=== PATIENT | female | born 1940 | race Caucasian/White ===

== ENCOUNTER → 2018-06-23 13:33 | Outpatient (CLI) | payer MEDICARE, SELFPAY ==
[2018-06-23 14:02] LABS: Blood Urea Nitrogen 28 mg/dL (7-17); Calcium 9.1 mg/dL (8.4-10.2); Carbon Dioxide 26 mmol/L (22-32); Chloride 105 mmol/L (98-107); Estimated Glomerular Filt Rate 36.3 mL/min (>60); Glucose 94 mg/dL (80-110); HEMOLYSIS < 15 (0-50); Potassium 3.9 mmol/L (3.4-5.1); Sodium 140 mmol/L (137-145)
[2018-06-23 14:19] LABS: Free T3, Triiodothyronine Free 4.41 pg/mL (2.77-5.27); Free T4, Direct Thyroxine 1.41 ng/dL (0.78-2.19)
[2018-06-23 17:43] LABS: Vitamin D 25 Hydroxy (D3) 28.2 ng/mL (30.0-100.0)
== END ==
PROVIDERS: PCP Student in an Organized Health Care Education/Training Program; Visit Provider Student in an Organized Health Care Education/Training Program
DX: E03.9 Hypothyroidism, unspecified (principal); E55.9 Vitamin D deficiency, unspecified; N18.3 Chronic kidney disease, stage 3 (moderate); I12.9 Hypertensive chronic kidney disease with stage 1 through stage 4 chronic kidney disease, or unspecified chronic kidney disease
CPT/HCPCS: 36415; 80048; 82306; 84439; 84443; 84481

== ENCOUNTER 2018-09-17 22:31 | Inpatient (IN) | payer MEDICARE, SELFPAY ==
--- NOTE | 2018-09-17 | DI.CT.S_ITS ---
PROCEDURE: CT HEAD/BRAIN WO CON INDICATIONS: Multiple falls, right sided weakness TECHNIQUE: Noncontrast 4.5 mm thick angled axial sections acquired from the foramen magnum to the vertex, with coronal and sagittal reformats. For radiation dose reduction, the following was used: automated exposure control, adjustment of mA and/or kV according to patient size. COMPARISON: , CT, HEAD WITHOUT CONTRAST, 09/18/2015, 13:41. FINDINGS: Image quality: Excellent. CSF spaces: Basal cisterns are patent. No extra-axial fluid collections. The ventricles are symmetric in size and shape. There is mild cerebral volume loss, with resultant ventricular and sulcal prominence. Brain: No intracranial hemorrhage, mass, or mass effect. There are subcortical, periventricular and deep white matter hypodensities consistent with mild chronic small vessel ischemic changes. There is intracranial internal carotid artery atherosclerosis. Skull and face: Calvarium and visualized facial bones appear intact, without suspicious lesions. Sinuses: Visualized demonstrate mild mucosal thickening within the left maxillary sinus. Mastoid air cells are clear. IMPRESSION: 1. No acute intracranial abnormality. 2. Mild cerebral volume loss and chronic white matter small vessel ischemic changes. Dictated by: William Nicole M.D. on 09/18/2018 at 7:52 Approved by: William Nicole M.D. on 09/18/2018 at 7:54
[2018-09-17 22:37] VITALS: BP 94/55; PULSE 94; RESP 18; TEMP 36.6; O2SAT 95; BMI 27.9
--- NOTE | 2018-09-17 22:55 | ED.WEAKNESS ---
HPI - Weakness General Chief complaint: Weakness Stated complaint: GLF, weakness Time Seen by Provider: 09/17/18 22:32 Source: patient and EMS Mode of arrival: EMS Limitations: no limitations History of Present Illness HPI Narrative: Patient is a 77-year-old female with history of Parkinson's disease. She does live on her own. She states that she has fallen multiple times over the past several days/week. She states that the falls are related to her Parkinson's disease. She states she has hit her head in the past but has never lost any consciousness. She states that earlier today she fell while she was in her bedroom and she landed on the bed. She states that her right arm was under her. She states that because of how she fell it was difficult for her to move secondary to her Parkinson's disease and also weakness. her caretaker grounds did come over and found her lying on the bed. Appears that she had been lying there for approximately 14 hours. Upon arrival here in the emergency department. Patient was complaining of right upper arm pain to palpation however she was able to move her arm. She denies any other injuries. Related Data Home Medications Medication Instructions Recorded Confirmed carbidopa ER 50 mg-levodopa 200 mg 1 tab PO BEDTIME tab 06/26/18 09/18/18 tablet,extended release trospium 20 mg tablet 20 mg PO BID 06/26/18 09/18/18 fluoxetine 60 mg PO DAILY 09/18/18 09/18/18 rivastigmine tartrate 1 tab PO BID 09/18/18 09/18/18 Previous Rx's Medication Instructions Recorded melatonin 10 mg capsule 10 mg PO BEDTIME PRN #30 cap 06/26/18 carbidopa 25 mg-levodopa 100 mg 2 tab PO TID #180 tab 07/29/18 tablet Allergies Allergy/AdvReac Type Severity Reaction Status Date / Time Sulfa (Sulfonamide Allergy Severe HIVES Verified 09/17/18 22:46 Antibiotics) [SULFA (SULFONAMIDE ANTIBIOTICS)] vancomycin [VANCOMYCIN] Allergy Severe RASH AND Verified 09/17/18 22:46 BLISTERS codeine [CODEINE] Allergy Mild HEADACHE,VOMITING,MOOD Verified 09/17/18 22:46 CHANGES hydrocodone [HYDROCODONE] Allergy Mild NAUSEA,ITCHING,MOOD Verified 09/17/18 22:46 CHANGES Review of Systems Constitutional Reports frequent falls, Denies headache(s) and Reports weakness ENT Ears, Nose, Mouth, and Throat: Denies vertigo, Denies dizziness and Denies headache(s) Cardiovascular Denies chest pain, Denies rapid heart rate, Denies edema, Denies palpitations and Denies dyspnea Respiratory Denies dyspnea Gastrointestinal Gastrointestinal: Denies abdominal pain, Denies change in stool character, Denies nausea and Denies vomiting Genitourinary Denies dysuria and Denies vaginal discharge Musculoskeletal Denies arthralgias, Denies joint swelling and Denies numbness Comments: Right upper arm pain with palpation Integumentary/Breasts Denies rash Comments: Skin abrasions to the right elbow from prior falls Neurologic Denies behavioral changes, Denies vertigo, Denies dizziness, Reports frequent falls, Denies headache(s), Denies numbness and Reports weakness Psychiatric Denies behavioral changes Endocrine Denies palpitations Hematologic/Lymphatic Denies easy bleeding and Denies easy bruising Allergic/Immunologic Denies urticaria [facility] Medical History Arthritis (Chronic) Hypertension (Chronic) Lumbar spinal stenosis (Chronic) Parkinson's disease (Chronic) Peripheral neuropathy (Chronic) Urinary incontinence (Chronic) Fall from ground level (Resolved 04/2014) Hemopneumothorax (Resolved 04/2014) Menopause (Resolved ~1983) Respiratory failure (Resolved 04/2014) Rib fractures (Resolved 04/2014) Social History household members: none Smoking Status: Former smoker alcohol intake: current substance use type: does not use Exam Initial Vital Signs Initial Vital Signs: Vital Signs Temperature 97.8 F 09/17/18 22:37 Pulse Rate 94 H 09/17/18 22:37 Respiratory Rate 18 09/17/18 22:37 Blood Pressure 94/55 L 09/17/18 22:37 Pulse Oximetry 95 09/17/18 22:37 Const General: cooperative, well developed, well groomed and No acute distress Orientation: alert, awake and oriented x3 HENMT Head: normal to inspection and normocephalic Ears: hearing grossly normal bilaterally Nose: external nose normal Face and sinus: normal facial exam Chest Chest: normal inspection of the chest Resp Effort & Inspection: normal respiratory effort Auscultation: clear to auscultation bilaterally Cardio Rate: regular rate Rhythm: regular rhythm Pulses: radial pulses present GI Inspection: non-distended Palpation: soft, No firm and No tender Back/Spine/Pelvis Cervical Spine: No cervical spinal tenderness Skin Other: Bandages covering skin abrasions to her right elbow Neuro General: alert, awake and oriented x3 Cranial Nerves: CN's II-XI intact bilaterally Cognition: normal cognition Speech: speech normal Other: Patient with a baseline tremor that she states is not new. Patient with 2/5 strength bilateral lower extremity however equal bilateral. Patient states this is not new. 4-5 strength bilateral upper extremity equal bilateral. Patient states that this is not new. Extrem General: normal to inspection and capillary refill normal Other: Patient with full range of motion of the right shoulder right elbow and right wrist and right hand. She does have tenderness to palpation around the right biceps and triceps muscle. Psych Appearance: grossly normal and well kempt Scores GCS Alexia coma scale eye opening: Spontaneous Alexia coma scale verbal response: Orientated Alexia coma scale motor response: Obey commands [place] coma scale total score: 15 Course Orders Ordered: ED Orders 09/17/18 22:25 Complete Blood Count AUTO DIFF Stat Comprehensive Metabolic Panel Stat Creatine Kinase Stat Lipase Stat Partial Thromboplastin Time Stat Prothrombin Time INR Stat Troponin I Stat 09/17/18 22:58 EKG-12 Lead Stat 09/18/18 00:50 Consult to Occ Therapist Stat 09/18/18 00:55 Consult to Physician Routine 09/18/18 02:20 Urinalysis and Microscopic Stat Urine Culture Stat 09/18/18 06:00 Basic Metabolic Panel Stat Complete Blood Count AUTO DIFF Stat Creatine Kinase Stat Troponin I Stat Sodium Chloride (Normal Saline 0.9%) 1,000 mls @ 150 mls/hr IV CONT SUJIT Last Admin: 09/18/18 02:33 Dose: 150 mls/hr Ondansetron HCl (Zofran) 4 mg IV Q4HR PRN PRN Reason: Nausea And Vomiting Discontinued Medications Aspirin (Aspirin Chew) 324 mg PO NOW ONE Stop: 09/18/18 00:51 Last Admin: 09/18/18 01:02 Dose: 324 mg Vital Signs - 8 hr 09/17/18 22:37 09/17/18 23:00 09/18/18 00:00 Temperature 97.8 F Pulse Rate 94 H 98 H 85 Respiratory Rate 18 26 H 20 Blood Pressure 94/55 L Blood Pressure [Left Arm] 106/59 L 124/54 L Pulse Oximetry 95 98 93 09/18/18 00:43 09/18/18 01:32 09/18/18 01:55 Temperature 98.2 F Pulse Rate 94 H 90 91 H Respiratory Rate 24 14 16 Blood Pressure 115/67 129/76 Blood Pressure [Left Arm] 108/55 L Pulse Oximetry 95 94 94 MDM - Weakness Lab Data Attestation: I reviewed the patient's lab results. Result diagrams: 09/17/18 22:25 09/17/18 22:25 Lab Results 09/17/18 09/17/18 09/17/18 Range/Units 22:25 22:25 22:25 WBC 12.1 H (4.5-11.0) X10^3/uL RBC 5.77 H (4.0-5.2) X10^6/uL Hgb 16.6 H (12.0-16.0) g/dL Hct 49.0 H (36-46) % MCV 84.9 (80-100) fL MCH 28.8 (26-34) PG MCHC 33.9 (30-36) % RDW 14.8 (11.6-14.8) % Plt Count 170 (150-400) X10^3/uL Neut % (Auto) 81.7 H (50-75) % Lymph % (Auto) 8.3 L (25-40) % Weber % (Auto) 9.5 (3-14) % Eos % (Auto) 0.1 L (2-4) % Baso % (Auto) 0.4 (0-2) % Neut # (Auto) 9900 H (8972-9913) /uL Lymph # (Auto) 1000 L (0766-6880) /uL Weber # (Auto) 1200 H (0-900) /uL Eos # (Auto) 0 (0-450) /uL Baso # (Auto) 0 (0-100) /uL PT 11.6 (10.1-12.7) SECONDS INR 1.0 (0.9-1.3) APTT 31 (26.4-36.2) SECONDS Sodium 139 (137-145) mmol/L Potassium 3.7 (3.4-5.1) mmol/L Chloride 101 (98-107) mmol/L Carbon Dioxide 23 (22-32) mmol/L BUN 41 H (7-17) mg/dL Creatinine 2.10 H (0.52-1.04) mg/dL Estimated GFR 22.7 L (>60) mL/min BUN/Creatinine Ratio 19.5 (6-22) Glucose 131 H (80-110) mg/dL Calcium 9.3 (8.4-10.2) mg/dL Total Bilirubin 1.4 H (0.2-1.3) mg/dL AST 78 H (14-36) IU/L ALT 7 L (9-52) IU/L Alkaline Phosphatase 80 (38-126) U/L Total Creatine Kinase (30-135) U/L Troponin I 0.064 H (0.01-0.034) ng/mL Total Protein 7.3 (6.3-8.2) g/dL Albumin 4.3 (3.5-5.0) g/dL Globulin 3.0 (1.7-4.1) g/dL Albumin/Globulin Ratio 1.4 (1.0-2.8) Lipase 75 (23-300) U/L Urine Color Urine Appearance Urine pH (4.5-8.0) Ur Specific [place] (1.000-1.035) Urine Protein (Negative) Urine Glucose (UA) (Negative) g/dL Urine Ketones (NEGATIVE) Urine Occult Blood (Negative) Urine Nitrate (Negative) Urine Bilirubin (NEGATIVE) Urine Urobilinogen (0.2) E.U./dL Ur Leukocyte Esterase (NEGATIVE) Urine RBC (0-5/HPF) Urine WBC (0-5/HPF) Urine Bacteria (None) Granular Casts (None) WBC Casts (None) Ur Culture Indicated? 09/17/18 09/18/18 Range/Units 22:25 02:20 WBC (4.5-11.0) X10^3/uL RBC (4.0-5.2) X10^6/uL Hgb (12.0-16.0) g/dL Hct (36-46) % MCV (80-100) fL MCH (26-34) PG MCHC (30-36) % RDW (11.6-14.8) % Plt Count (150-400) X10^3/uL Neut % (Auto) (50-75) % Lymph % (Auto) (25-40) % Weber % (Auto) (3-14) % Eos % (Auto) (2-4) % Baso % (Auto) (0-2) % Neut # (Auto) (9591-3752) /uL Lymph # (Auto) (8423-1921) /uL Weber # (Auto) (0-900) /uL Eos # (Auto) (0-450) /uL Baso # (Auto) (0-100) /uL PT (10.1-12.7) SECONDS INR (0.9-1.3) APTT (26.4-36.2) SECONDS Sodium (137-145) mmol/L Potassium (3.4-5.1) mmol/L Chloride (98-107) mmol/L Carbon Dioxide (22-32) mmol/L BUN (7-17) mg/dL Creatinine (0.52-1.04) mg/dL Estimated GFR (>60) mL/min BUN/Creatinine Ratio (6-22) Glucose (80-110) mg/dL Calcium (8.4-10.2) mg/dL Total Bilirubin (0.2-1.3) mg/dL AST (14-36) IU/L ALT (9-52) IU/L Alkaline Phosphatase (38-126) U/L Total Creatine Kinase 2544 H (30-135) U/L Troponin I (0.01-0.034) ng/mL Total Protein (6.3-8.2) g/dL Albumin (3.5-5.0) g/dL Globulin (1.7-4.1) g/dL Albumin/Globulin Ratio (1.0-2.8) Lipase (23-300) U/L Urine Color Yellow Urine Appearance Clear Urine pH 5.0 (4.5-8.0) Ur Specific [place] >=1.030 H (1.000-1.035) Urine Protein 3+ H (Negative) Urine Glucose (UA) Negative (Negative) g/dL Urine Ketones Trace H (NEGATIVE) Urine Occult Blood 2+ H (Negative) Urine Nitrate Negative (Negative) Urine Bilirubin Negative (NEGATIVE) Urine Urobilinogen 0.2 (0.2) E.U./dL Ur Leukocyte Esterase 1+ H (NEGATIVE) Urine RBC 1-5/hpf (0-5/HPF) Urine WBC 5-10/hpf H (0-5/HPF) Urine Bacteria Many (>30) H (None) Granular Casts 1-5/lpf (None) WBC Casts 0-1/lpf (None) Ur Culture Indicated? Specimen cultured Imaging Data CT scan - head: Radiologist's impression: No acute intracranial disease ECG Data Attestation: I personally reviewed and interpreted this ECG as follows: Prior ECG tracings: not available for review Interpretation: Sinus rhythm Left axis deviation Ventricular rate of 93 Normal QRS Normal QTC No ST T wave changes MDM Narrative Medical decision making narrative: Patient appears to be at baseline per her report for her Parkinson's disease. She is currently taking medications for this. The fall today appears to be a mechanical fall. It appears that she was laying on the bed for an extended period of time potentially laying on her right arm. She has full range of motion of her shoulder and elbow. I feel that a fracture is unlikely so I did not obtain a x-ray. She does have a slightly elevated CK. Also has other signs of dehydration to include elevated hemoglobin and hematocrit also a elevation in her creatinine. I suspect this is also related to her legs extended period of time at home. She was given fluids here in the emergency department. Her head CT shows no signs of new pathology. I have low suspicion for CVA. She also has a slight elevation in her troponin. She is not complaining of any chest pain. she has no EKG changes consistent with a ST elevation CO. She was given aspirin here in the ER. I have a suspicion that the elevation in troponin is secondary to her acute kidney injury. patient was concerned that she potentially had a urinary tract infection. The urinalysis was ordered prior to her being transferred to the floor however the results were not obtained prior to her reaching the floor. Will hold on any antibiotics until these results are returned and followed up by the inpatient team. I discussed the case with Dr. Roe with the hospitalist team who will admit to follow the creatinine and the troponin and fluid hydration. A social work consult was also placed because the patient lives by herself. The patient's daughter and son-in-law at bedside report that they have attempted multiple times to convince the patient to be placed in a assisted living facility however she has refused. Is reported that the EMS a call to her house multiple times a week for lift assist because she is falling at home. Morning labs were ordered per the request of the inpatient team and be followed up by them. We discussed admission with the patient and family who expressed understanding and agreement. Discharge Plan Departure Patient Disposition: Admitted as Observation Clinical Impression: Parkinson's disease, Dehydration, Acute kidney injury Rhabdomyolysis Qualifiers: Rhabdomyolysis type: non-traumatic Qualified Code(s): M62.82 - Rhabdomyolysis Discharge Date/Time: 09/18/18 02:03 Interventions: ED Discharge Assessment Last Done: 09/18/18 01:32 Admit Date/Time: 09/18/18 01:07 Admit Provider: Junior Roe
[2018-09-17 23:00] VITALS: BP 106/59; PULSE 98; RESP 26; O2SAT 98
[2018-09-17 23:12] LABS: Prothrombin Time 11.6 SECONDS (10.1-12.7)
[2018-09-17 23:15] LABS: Albumin 4.3 g/dL (3.5-5.0); Albumin Globulin Ratio 1.4 (1.0-2.8); Alkaline Phosphatase 80 U/L (38-126); Aspartate Aminotransferase 78 IU/L (14-36); BUN Creatinine Ratio 19.5 (6-22); Bilirubin Total 1.4 mg/dL (0.2-1.3); Blood Urea Nitrogen 41 mg/dL (7-17); Calcium 9.3 mg/dL (8.4-10.2); Carbon Dioxide 23 mmol/L (22-32); Chloride 101 mmol/L (98-107); Estimated Glomerular Filt Rate 22.7 mL/min (>60); Glucose 131 mg/dL (80-110); HEMOLYSIS < 15 (0-50); Lipase 75 U/L (23-300); PTT Partial Thromboplastin Tim 31 SECONDS (26.4-36.2); Potassium 3.7 mmol/L (3.4-5.1); Sodium 139 mmol/L (137-145); Total Protein 7.3 g/dL (6.3-8.2)
[2018-09-17 23:17] LABS: Add Manual Diff / Slide Review NO; Basophils Absolute Auto 0 /uL (0-100); Basophils Percent Auto 0.4 % (0-2); Eosinophils Absolute Auto 0 /uL (0-450); Eosinophils Percent Auto 0.1 % (2-4); Hemoglobin 16.6 g/dL (12.0-16.0); Lymphocytes Absolute Auto 1000 /uL (1100-4500); Lymphocytes Percent Auto 8.3 % (25-40); Mean Corpuscular HGB Conc 33.9 % (30-36); Mean Corpuscular Hemoglobin 28.8 PG (26-34); Mean Corpuscular Volume 84.9 fL (80-100); Monocytes Absolute Auto 1200 /uL (0-900); Monocytes Percent Auto 9.5 % (3-14); Neutrophils Absolute Auto 9900 /uL (1500-7000); Neutrophils Percent Auto 81.7 % (50-75); Platelet Count 170 X10^3/uL (150-400); Red Blood Cell Count 5.77 X10^6/uL (4.0-5.2); Red Cell Distribution Width 14.8 % (11.6-14.8); White Blood Cell Count 12.1 X10^3/uL (4.5-11.0)
[2018-09-17 23:26] LABS: Troponin I 0.064 ng/mL (0.01-0.034)
[2018-09-17 23:36] LABS: Alanine Aminotransferase 7 IU/L (9-52)
[2018-09-17 23:43] LABS: Creatine Kinase 2544 U/L (30-135)
[2018-09-18] VITALS (11 sets, daily range): BP systolic 108–138; BP diastolic 54–76; PULSE 78–94; RESP 14–24; TEMP 36.2–36.9; O2SAT 93–97; BMI 27.9
[2018-09-18] MEDS: ASPIRIN 81 MG TAB 324 MG PO (01:02)
[2018-09-18 02:24] LABS: Appearance Urine UA CLEAR; Bilirubin Urine UA NEGATIVE (NEGATIVE); Color Urine UA YELLOW; Glucose Urine UA NEGATIVE (Negative); Ketones Urine UA TRACE (NEGATIVE); Leukocyte Esterase Urine UA 1+ (NEGATIVE); Nitrite Urine UA NEGATIVE (Negative); Occult Blood Urine UA 2+ (Negative); Protein Urine UA 3+ (Negative); Specific Gravity Urine UA >=1.030 (1.000-1.035); Urobilinogen Urine UA 0.2 E.U./dL (0.2)
[2018-09-18] MEDS: SODIUM CHLORIDE 0.9% 1,000 ML 150 ML IV (02:33)
[2018-09-18 02:44] LABS: Bacteria Urine Many (>30); RBC Urine 1-5/HPF (0-5/HPF); WBC Urine 5-10/HPF (0-5/HPF)
[2018-09-18 02:45] LABS: Culture Indicated Urine Specimen Cultured; Granular Casts Urine 1-5/LPF; White Blood Cell Casts Urine 0-1/LPF
--- NOTE | 2018-09-18 03:21 | PC.NURSE ---
0230- Pt arrived to unit from ED; admit for weakness. Hx of parkinson's w/ limited movement at this time. Heavy 2PA to BSC and back to bed using FWW for assistance. RA; VSS; NS started as ordered. Pt is alert, however gets slightly confused about objects in the room. Denies any pain at this time. 0600- IV fluids continue to run, pt denies any pain or needs.
[2018-09-18 06:17] LABS: Hematocrit 43.4 % (36-46); Hemoglobin 14.5 g/dL (12.0-16.0); Mean Corpuscular HGB Conc 33.5 % (30-36); Mean Corpuscular Hemoglobin 28.7 PG (26-34); Mean Corpuscular Volume 85.7 fL (80-100); Red Blood Cell Count 5.07 X10^6/uL (4.0-5.2); Red Cell Distribution Width 14.6 % (11.6-14.8); White Blood Cell Count 8.4 X10^3/uL (4.5-11.0)
[2018-09-18 06:32] LABS: BUN Creatinine Ratio 23.7 (6-22); Blood Urea Nitrogen 45 mg/dL (7-17); Calcium 8.4 mg/dL (8.4-10.2); Carbon Dioxide 24 mmol/L (22-32); Chloride 106 mmol/L (98-107); Creatine Kinase 1432 U/L (30-135); Estimated Glomerular Filt Rate 25.5 mL/min (>60); Glucose 93 mg/dL (80-110); HEMOLYSIS < 15 (0-50); Potassium 3.4 mmol/L (3.4-5.1); Sodium 137 mmol/L (137-145)
[2018-09-18 06:35] LABS: Add Manual Diff / Slide Review YES
[2018-09-18 06:44] LABS: Troponin I 0.071 ng/mL (0.01-0.034)
[2018-09-18 07:18] LABS: Neutrophils Absolute Manual 6468 /uL (3000-5900); Total Cells Counted 100
[2018-09-18 07:20] LABS: RBC Morphology Normal Morphology
[2018-09-18 07:27] LABS: Platelet Count 98 X10^3/uL (150-400)
--- NOTE | 2018-09-18 07:39 | P.HP_ITS ---
History of Present Illness Date Patient Seen: 09/18/18 Chief complaint: GLF, weakness Narrative: Viviane Robin is a 77-year-old female with a past medical history significant for Parkinson's disease with dementia, depression, recurrent falls, lumbar spinal stenosis and peripheral neuropathy who presented after ground level fall with right elbow pain and weakness. The patient reports it is she has fallen twice in the last 2 days. Two days ago she fell after she tripped on her feet. She then climbed into bed and was unable to get up due to positioning. She laid there for approximately 14 hours until her caregiver arrived and found her. She then fell again last night when she bent over to fruit or nut picker a piece of paper. She believe she fell last night due to weakness. She endorses increased urinary frequency, chronic constipation and right arm soreness. She denies headache, chest pain, shortness of breath, abdominal pain, nausea, vomiting, fever, chills, dysuria, or diarrhea. She reports a good appetite, however, she has had poor fluid intake. Due to her Parkinson's disease, lumbar spinal stenosis and peripheral neuropathy patient has recurrent falls and is quite unsafe at home. There are several calls made to EMS weekly due to lift assist. The patient's family has tried to place her in an assisted-living in the past but the patient has reportedly been reluctant. When I inquired as to why she does not have more help at home she reports she is unable to afford it. She currently has a assistive technology specialist that comes 5 times per week from 11:00 a.m. to 2:00 p.m. and a caregiver who comes M/W/F/Sat/Sun from 7:00 p.m. to 11:00 p.m.. She has been seen most recently by Dr. Veronique Garcia. Patient History Medical History (Updated 09/18/18 @ 11:44 by Connie Garcia DO) Dementia with Parkinsonism (Acute) Arthritis (Chronic) Hypertension (Chronic) Lumbar spinal stenosis (Chronic) Parkinson's disease (Chronic) Peripheral neuropathy (Chronic) Urinary incontinence (Chronic) Fall from ground level (Resolved 04/2014) Hemopneumothorax (Resolved 04/2014) Menopause (Resolved ~1983) Respiratory failure (Resolved 04/2014) Rib fractures (Resolved 04/2014) Surgical History History of bladder surgery (Resolved) History of hip replacement (Resolved 2000) History of left cataract surgery (Resolved 12/11/15) History of oophorectomy (Resolved) History of right cataract surgery (Resolved 12/25/15) History of tonsillectomy (Resolved) History of tracheostomy (Resolved 04/2014) Status post appendectomy (Resolved) Status post cholecystectomy (Resolved 2000) Status post hysterectomy (Resolved 1967) Status post laminectomy (Resolved 2010) Family History (Updated 09/18/18 @ 11:23 by Connie Garcia DO) Mother Breast cancer, female Colorectal cancer Cancer Father Esophageal cancer Alcoholism Parkinson disease Social History household members: none Smoking Status: Former smoker alcohol intake: current substance use type: does not use Family & Social History Social History: household members none Prior Living Arrangements House Safety & Behavioral: Feels Safe in Current Yes Environment Been Physically Hurt or No Threatened By a Person Suicidal Ideation Description None Suicide Plan Description No Plan Tobacco & Substance use: Smoking Status Former smoker, 1ppd x 15 years alcohol intake none alcohol intake frequency none Substance Use Type does not use Meds Home Medications Medication Instructions Recorded Confirmed Type carbidopa ER 50 mg-levodopa 200 mg 1 tab PO BEDTIME tab 06/26/18 09/18/18 History tablet,extended release melatonin 10 mg capsule 10 mg PO BEDTIME PRN #30 cap 06/26/18 09/18/18 Rx trospium 20 mg tablet 20 mg PO BID 06/26/18 09/18/18 History carbidopa 25 mg-levodopa 100 mg 2 tab PO TID #180 tab 07/29/18 09/18/18 Rx tablet fluoxetine 60 mg PO DAILY 09/18/18 09/18/18 History rivastigmine tartrate 1 tab PO BID 09/18/18 09/18/18 History Allergies Allergy/AdvReac Type Severity Reaction Status Date / Time Sulfa (Sulfonamide Allergy Severe HIVES Verified 09/17/18 22:46 Antibiotics) [SULFA (SULFONAMIDE ANTIBIOTICS)] vancomycin [VANCOMYCIN] Allergy Severe RASH AND Verified 09/17/18 22:46 BLISTERS codeine [CODEINE] Allergy Mild HEADACHE,VOMITING,MOOD Verified 09/17/18 22:46 CHANGES hydrocodone [HYDROCODONE] Allergy Mild NAUSEA,ITCHING,MOOD Verified 09/17/18 22:46 CHANGES Review of Systems Review of Systems A 10 system comprehensive review of systems was conducted with the patient and found to be negative except as above in the History of Present Illness. Exam Vital Signs (past 8 hours): - 09/18/18 00:00 09/18/18 00:43 09/18/18 01:32 Temperature Pulse Rate 85 94 H 90 Respiratory Rate 20 24 14 Blood Pressure 115/67 Blood Pressure [Left Arm] 124/54 L 108/55 L Pulse Oximetry 93 95 94 09/18/18 01:55 09/18/18 05:55 Temperature 98.2 F 98.2 F Pulse Rate 91 H 78 Respiratory Rate 16 16 Blood Pressure 129/76 132/76 Blood Pressure [Left Arm] Pulse Oximetry 94 96 Oxygen Delivery Method Room Air Narrative Exam Narrative: General: Elderly female lying in bed and in no acute distress, well-developed, well-nourished, possible mild/subtle confusion appropriately interactive. HEENT: Normocephalic, atraumatic. External ears without defect. Pupils equal, round, and reactive to light. Anicteric sclerae, moist conjunctivae, and no lid lag. Oropharynx free of erythema and cobble stoning with moist mucosa. Neck: Supple with full range of motion. No jugular venous distension. No bruits. No lymphadenopathy or thyromegaly. Cardiovascular: Regular rate and rhythm with grade +2/6 holosystolic murmur. No rubs or gallops appreciated. Pulmonary: Clear to auscultation bilaterally without crackles, wheezes, or rhonchi. Normal respiratory effort with no use of accessory muscles. Abdomen: Soft, bowel sounds present, non-tender, non-distended. No hepatosplenomegaly or masses appreciated. Extremities: No clubbing, cyanosis, or edema. Skin: Normal temperature, turgor, and texture; no rash, ulcers, or subcutaneous nodules appreciated. Neurological: Cranial nerves grossly intact. Very mild parkinsonian tremor and masked facies. Mild bilateral upper extremity rigidity. Psychiatric: Normal mood and affect. Alert and oriented to person, place, and time. Objective Labs Result Diagrams: 09/18/18 06:00 09/18/18 06:00 Labs: Laboratory Results - last 24 hr 09/17/18 09/17/18 09/17/18 22:25 22:25 22:25 WBC 12.1 H RBC 5.77 H Hgb 16.6 H Hct 49.0 H MCV 84.9 MCH 28.8 MCHC 33.9 RDW 14.8 Plt Count 170 Neut % (Auto) 81.7 H Lymph % (Auto) 8.3 L Amite % (Auto) 9.5 Eos % (Auto) 0.1 L Baso % (Auto) 0.4 Neut # (Auto) 9900 H Lymph # (Auto) 1000 L Amite # (Auto) 1200 H Eos # (Auto) 0 Baso # (Auto) 0 Total Counted Seg Neutrophils % Band Neutrophils % Lymphocytes % (Manual) Atypical Lymphs % Monocytes % (Manual) Neutrophils # (Manual) RBC Morphology PT 11.6 INR 1.0 APTT 31 Sodium 139 Potassium 3.7 Chloride 101 Carbon Dioxide 23 BUN 41 H Creatinine 2.10 H Estimated GFR 22.7 L BUN/Creatinine Ratio 19.5 Glucose 131 H Calcium 9.3 Total Bilirubin 1.4 H AST 78 H ALT 7 L Alkaline Phosphatase 80 Total Creatine Kinase Troponin I 0.064 H Total Protein 7.3 Albumin 4.3 Globulin 3.0 Albumin/Globulin Ratio 1.4 Lipase 75 Urine Color Urine Appearance Urine pH Ur Specific Fiatt Urine Protein Urine Glucose (UA) Urine Ketones Urine Occult Blood Urine Nitrate Urine Bilirubin Urine Urobilinogen Ur Leukocyte Esterase Urine RBC Urine WBC Urine Bacteria Granular Casts WBC Casts Ur Culture Indicated? 09/17/18 09/18/18 09/18/18 22:25 02:20 06:00 WBC 8.4 RBC 5.07 Hgb 14.5 Hct 43.4 MCV 85.7 MCH 28.7 MCHC 33.5 RDW 14.6 Plt Count Neut % (Auto) Glass Installer Lymph % (Auto) Glass Installer Amite % (Auto) Glass Installer Eos % (Auto) Glass Installer Baso % (Auto) Glass Installer Neut # (Auto) Glass Installer Lymph # (Auto) Glass Installer Amite # (Auto) Glass Installer Eos # (Auto) Glass Installer Baso # (Auto) Glass Installer Total Counted 100 Seg Neutrophils % 76.0 H Band Neutrophils % 1.0 L Lymphocytes % (Manual) 4.0 L Atypical Lymphs % 13.0 H Monocytes % (Manual) 6.0 Neutrophils # (Manual) 6468 H RBC Morphology Normal morphology PT INR APTT Sodium Potassium Chloride Carbon Dioxide BUN Creatinine Estimated GFR BUN/Creatinine Ratio Glucose Calcium Total Bilirubin AST ALT Alkaline Phosphatase Total Creatine Kinase 2544 H Troponin I Total Protein Albumin Globulin Albumin/Globulin Ratio Lipase Urine Color Yellow Urine Appearance Clear Urine pH 5.0 Ur Specific Fiatt >=1.030 H Urine Protein 3+ H Urine Glucose (UA) Negative Urine Ketones Trace H Urine Occult Blood 2+ H Urine Nitrate Negative Urine Bilirubin Negative Urine Urobilinogen 0.2 Ur Leukocyte Esterase 1+ H Urine RBC 1-5/hpf Urine WBC 5-10/hpf H Urine Bacteria Many (>30) H Granular Casts 1-5/lpf WBC Casts 0-1/lpf Ur Culture Indicated? Specimen cultured 09/18/18 06:00 WBC RBC Hgb Hct MCV MCH MCHC RDW Plt Count Neut % (Auto) Lymph % (Auto) Amite % (Auto) Eos % (Auto) Baso % (Auto) Neut # (Auto) Lymph # (Auto) Amite # (Auto) Eos # (Auto) Baso # (Auto) Total Counted Seg Neutrophils % Band Neutrophils % Lymphocytes % (Manual) Atypical Lymphs % Monocytes % (Manual) Neutrophils # (Manual) RBC Morphology PT INR APTT Sodium 137 Potassium 3.4 Chloride 106 Carbon Dioxide 24 BUN 45 H Creatinine 1.90 H Estimated GFR 25.5 L BUN/Creatinine Ratio 23.7 H Glucose 93 Calcium 8.4 Total Bilirubin AST ALT Alkaline Phosphatase Total Creatine Kinase 1432 H D Troponin I 0.071 H Total Protein Albumin Globulin Albumin/Globulin Ratio Lipase Urine Color Urine Appearance Urine pH Ur Specific Fiatt Urine Protein Urine Glucose (UA) Urine Ketones Urine Occult Blood Urine Nitrate Urine Bilirubin Urine Urobilinogen Ur Leukocyte Esterase Urine RBC Urine WBC Urine Bacteria Granular Casts WBC Casts Ur Culture Indicated? Assessment & Plan Assessment & Plan narrative: Viviane Robin is a 77-year-old female with a past medical history significant for Parkinson's disease with dementia, depression, recurrent falls, lumbar spinal stenosis and peripheral neuropathy who presented after ground level fall with right elbow pain and weakness. 1. Acute rhabdomyolysis with dehydration after ground level fall, present on admission. Active. -Initial total CK 2544. Repeat total CK trending down at 1432. -Continue IV fluid hydration with normal saline decreased from 150 mL/hr to 100 mL/hr. 2. Acute urinary tract infection, present on admission. Active. -Urinalysis appears grossly infected with urine culture pending. Due to generalized weakness with ground level fall and rhabdomyolysis started empiric antibiotics with ceftriaxone 2 g daily pending identification and sensitivities. 3. Acute kidney injury, on chronic kidney disease stage 3, present on admission. Active. -Secondary to rhabdomyolysis, UTI, and dehydration. -Initial creatinine 2.10. Baseline creatinine between 1.2-1.4. Creatinine trending down to 1.9. -Continue IV fluid hydration as above. -Avoid nephrotoxic agents. -Continue to monitor renal function daily. 4. Acute thrombocytopenia, not present on admission. Stable. -Secondary to hemodilution and acute infection. -Continue to monitor platelets closely. 5. Parkinson's disease, chronic, present on admission. Stable. -Continue carbidopa levodopa IR 50/200 mg 3 times a day and carbidopa levodopa ER 50/200 mg once daily at bedtime. -Continue rivastigmine tartrate twice daily. 6. Urinary incontinence and overactive bladder, chronic, present on admission. Stable. -Continue trospium 20 mg twice daily. 7. Depression, chronic, present on admission. Stable. -Patient inquired as to how to better control her depression for which counseling -Continue fluoxetine 60 mg daily. Patient is admitted under inpatient status with expected length of stay greater than 2 midnights due to severity of presenting symptoms, risk of adverse event, and complexity of treatment plan. Quality VTE Deep Vein Thrombosis/Pulmonary Embolism Present on Admission: No
[2018-09-18] MEDS: SODIUM CHLORIDE 0.9% 1,000 ML 100 ML IV ×2 (08:57→20:39)
[2018-09-18] MEDS: HEPARIN 5,000 UNIT/ML VIAL 5000 UNIT SUBCUT (09:52)
[2018-09-18] MEDS: CEFTRIAXONE 2 GM/50 ML FROZ.PIGGY IV (09:52)
--- NOTE | 2018-09-18 10:56 | PT.IIE ---
Surgical History (Last Reviewed 09/18/18 @ 11:18 by Connie Garcia DO) History of bladder surgery (Resolved) History of hip replacement (Resolved 2000) History of left cataract surgery (Resolved 12/11/15) History of oophorectomy (Resolved) History of right cataract surgery (Resolved 12/25/15) History of tonsillectomy (Resolved) History of tracheostomy (Resolved 04/2014) Status post appendectomy (Resolved) Status post cholecystectomy (Resolved 2000) Status post hysterectomy (Resolved 1967) Status post laminectomy (Resolved 2010) Medical History (Last Updated 09/18/18 @ 11:44 by Connie Garcia DO) Dementia with Parkinsonism (Acute) Arthritis (Chronic) Hypertension (Chronic) Lumbar spinal stenosis (Chronic) Parkinson's disease (Chronic) Peripheral neuropathy (Chronic) Urinary incontinence (Chronic) Fall from ground level (Resolved 04/2014) Hemopneumothorax (Resolved 04/2014) Menopause (Resolved ~1983) Respiratory failure (Resolved 04/2014) Rib fractures (Resolved 04/2014) Physical Therapy Inpatient Evaluation/Re-Eval M1 PT/OT-IP Prior Functional Status Start: 09/18/18 13:07 Freq: NEEDED Status: Active Protocol: Document 09/18/18 10:56 AB (Rec: 09/18/18 13:23 AB [id number]) Medical Review Prior Functional Status Medical History Reviewed Yes Communication able to make needs known Mobility and Gait pt stated that she is modified independent with all mobilities and ambulation using a hurrycane indoors and 4WW for outdoor mobility Activities of Daily Living and IADL's has a caregiver that comes in to assist her for a ~ 4 hours everyday: Mornings on MTW; afternoons ThF, evenings: SatSun Prior Functional Level (Other details) pt has had h/o falls, ~ 4 falls for the passed month Social History Household Members none Living Arrangements House Number of Floors (Floors) One Floor Number of Stairs To Enter/Railing? ramp to enter Home Environment Standard Height Toilet Walk in Shower Ramp Home Equipment Four Wheel Walker Raised Toilet Seat Without Armrests Shower Seat without Backrest Hand Held Shower Grab Bars In Shower Additional Social History Comment has a transfer pole next to the bed to assist her with transfers pt has a hurrycane M2 PT-IP Current Condition Start: 09/18/18 13:07 Freq: NEEDED Status: Active Protocol: Document 09/18/18 10:56 AB (Rec: 09/18/18 13:23 AB [id number]) Physical Therapy Current Condition Current Condition Evaluation Date 09/18/18 Treatment Diagnosis Rhabdomyolysis; PD; difficulty in Walking Onset Date 09/18/18 Precautions Other Precautions Falls M3 PT-IP Subjective Start: 09/18/18 13:07 Freq: NEEDED Status: Active Protocol: Document 09/18/18 10:56 AB (Rec: 09/18/18 13:23 AB [id number]) Subjective Physical Therapy Visit Type Type Initial Evaluation Visit Start Time 10:56 Visit Stop Time 11:29 Total Visit Minutes 32 Number of BALLPOINT PEN CARTRIDGE TESTER Visits 0 Physical Therapy Visit Comments Patient Comments pt agreeable to do PT Therapy Pain Assessment Pain When Pain Assessed At Rest Pain Present Pain Present Pain Reported Location Right Arm Scale Used pain scale not stated M4 PT-IP Mobility and Gait Start: 09/18/18 13:07 Freq: NEEDED Status: Active Protocol: Document 09/18/18 10:56 AB (Rec: 09/18/18 13:23 AB [id number]) PT-Bed Mobility Assessment Supine to Sit Supine to Sit Maximum Assistance 1 Person Assistance Sit to Supine Sit to Supine Maximum Assistance 1 Person Assistance Scooting Scooting to Edge of Bed Maximum Assistance PT-Transfer Assessment Sit to and From Stand Sit to and from Stand Moderate Assistance 1 Person Assistance Use of Upper Extremities Equipment Transfer Assistive Device Gait Belt Front Wheeled Walker Orthotic/Prosthetic Devices or Brace: No Transfers Transfer Destination Bed Chair Transfer Technique Stand Step Pivot Transfer Ability Level of Assist Minimal Assistance Use of Upper Extremities Comments Mobility Comments pt tends to push trunk backwards during sit to stand. instructed on techniques on how to do sit <>stand and pt completed with mod A and max cues. Gait Assessment Gait Gait Assistance Required: Minimum Assistance Distance (Feet) 25 Able to Maintain Weight Bearing Status Yes During Gait Assistive Devices Assistive Device Gait Belt Front Wheeled Walker Orthotic/Prosthetic Devices or Brace: No Gait Deviations General Gait Pattern Decreased Stride Length Decreased Feet Clearance Festinating Factors Limiting Gait Function Factors Limiting Gait Function Decreased Activity Tolerance Decreased Strength Incoordination Limited Range of Motion Poor Balance Poor Safety Awareness PT-Balance Assessment Sitting Balance and Reactions Static Sitting Balance Ability Good Dynamic Sitting Balance Ability Fair Standing Balance and Reactions Static Standing Balance Ability Poor Dynamic Standing Balance Ability Poor Device Used FWW M5 PT-IP Objective Assessments Start: 09/18/18 13:07 Freq: NEEDED Status: Active Protocol: Document 09/18/18 10:56 AB (Rec: 09/18/18 13:23 AB [id number]) Orientation Orientation/Cognition Level of Alertness Alert Orientation Name Place Situation Language Function Ability No Deficits Noted Safety Awareness Decreased Safety Awareness Memory Description Short Term Impaired Gross Range of Motion Lower Extremity ROM Assessment Within Functional Limits Strength Lower Extremity Strength Assessment Bilaterally Impaired Hip 3+/5 Knee 3+/5 Sensation Assessment Sensation Gross Sensation WNL M6 PT-IP Treatment Start: 09/18/18 13:07 Freq: NEEDED Status: Active Protocol: Document 09/18/18 10:56 AB (Rec: 09/18/18 13:23 AB [id number]) Physical Therapy Treatment Education Education Provided Safety M7 PT-IP Assessment and Plan Start: 09/18/18 13:07 Freq: NEEDED Status: Active Protocol: Document 09/18/18 10:56 AB (Rec: 09/18/18 13:23 AB [id number]) PT Summary Assessment and Plan Potential Rehabilitation Potential Good Summary Impairments Pain ROM Strength Balance Coordination Sensation Tone Cognition Bed Mobility Transfers Gait Activity Tolerance Assessment Summary pt requiring mod to max A with mobility. pt has h/o falls at home. pt will require SNF rehab at this time to improve strength, balance, functional mobility and safety awareness. Goals Bed Mobility Goal Standby Assistance Transfer Goal Standby Assistance Front Wheeled Walker Gait Goal Standby Assistance Front Wheel Walker Gait Distance 150 Days to Meet Goals 5 Frequency of Treatment Frequency Of Treatment Twice a Day Treatment Plan Physical Therapy Treatment Plan Bed Mobility Training Transfer Training Gait Training Therapeutic Exercise Balance Retraining Discharge Planning Hot or Cold Pack Neuromuscular Re-ed Coordination Retraining Manual Therapy Other Recommendations and Next Treatment sit<>stand, bed mobility, Focus ambulation, standing bal/joe Recommendations To Nursing Amount of Assist Needed 1 Person Assist Discharge Recommendations PT Discharge Recommendations SNF Rehab Equipment Needed for Home Before FWW if going home Discharge
[2018-09-18] MEDS: CARBIDOPA-LEVODOPA 25/100 TABLET 2 EACH PO ×2 (12:57→18:02)
--- NOTE | 2018-09-18 13:47 | CM.IDA ---
Addendum entered by Candace Mcallister, EXPORT AGENT 09/18/18 14:50: Met w/dtr Miguel and her Wolf at bed side w/pt, the conversation was very helpful. Pt has both a friend/private cg and cgs through [facility] assisting M-Sun 4 hrs daily. Dtr discussed w/pt need for SNF and pt now agreeable, she seems more comforted in review of plan for rehab and then home w/cgs and likely HH. Dtr and spouse provide assist and check in w/pt almost daily. Dtr Miguel understands pt would be well served in an PRISON for the intermodal customer service but that pt has been able to manage fairly well on her own until approx. a week ago. she says this is the worst she has seen her mom, First SNF choice 1. [facility] 2. [facility] and [facility]. Gave referral to all three for dual planning. Awaiting CB, DC likely Thursday. PASRR completed. JW Original Note: Initial DCP Assessment Note: Pt is a 77 yo female, resident of [place], admitted for acute rhabdo after GLF and suspected to be down for approx 14 hrs, Parkinson's w/dementia, acute UTI and acute kindey injury. PCP: Recently seen by Dr Veronique Garcia at [facility] Payer:Medicare/[employer]. Reviewed chart and discussed case w/Dr Payne and PT Kandace today. According to Dr Payne's H+P: Due to her Parkinson's disease, lumbar spinal stenosis and peripheral neuropathy patient has recurrent falls and is quite unsafe at home. There are several calls made to EMS weekly due to lift assist. The patient's family has tried to place her in an assisted-living in the past but the patient has reportedly been reluctant. When I inquired as to why she does not have more help at home she reports she is unable to afford it. She currently has a counter clerk farm equipment parts that comes 5 times per week from 11:00 a.m. to 2:00 p.m. and a caregiver who comes M/W/F/Sat/Sun from 7:00 p.m. to 11:00 p.m.. According to PT note; pt requiring mod to max assist with mobility today and will require SNF for safe DC. Met w/pt to review above. Pt lets this EXPORT AGENT know she would like to go home. She understands Dr Payne and therapy would like her to go to SNF but she is fearful she will not make it back to her home if she goes to a SNF for rehab. Pt feels she could go home today. This EXPORT AGENT asked how pt would manage when she needs two people to help her up? Pt denies needing any help to get up. Pt requests this EXPORT AGENT speak w/her dtr about current help in the home, Medicaid (?) pt states she would hire more help but she can't afford it. Pt reiterates she does not want to go to a SNF at this time. Medical management and PT/OT therapy will likely continue here until pt is strong enough to DC home w/ HH ? It's possible pt may be more receptive to idea of short SNF stay w/assist from dtr and Dr payne, EXPORT AGENT team will follow closely. Kanika Rivera in the room briefly today then left, will attempt to reach by phone. HENRIETTA Coronado Discharge Planning/Care Management CM Discharge Assessment Start: 09/18/18 13:36 Freq: Status: Active Protocol: Document 09/18/18 13:41 [email or web address] (Rec: 09/18/18 13:47 [id number]) Discharge Planning Assessment Assigned Yard Hand HENRIETTA Dai DPOA/Assigned Designee Name kanika Rivera Contact Information [phone] Advance Directives? Yes Advance Directives on File No History Provided By Patient Medical Record Prior Living Arrangements House Household Members none Type of transporation used prior to Relies on Others admit Independent with ADL's No Is patient alert and oriented? Yes: Miild confusion Barriers to Discharge Yes Whiteboard Updated in Patient Room with Yes name and ext. # of Yard Hand Review Status In Process
--- NOTE | 2018-09-18 14:28 | OT.IP.EVAL ---
Past Medical History (Last Updated 09/18/18 @ 11:44 by Connie Garcia DO) Dementia with Parkinsonism (Acute) Arthritis (Chronic) Hypertension (Chronic) Lumbar spinal stenosis (Chronic) Parkinson's disease (Chronic) Peripheral neuropathy (Chronic) Urinary incontinence (Chronic) Fall from ground level (Resolved 04/2014) Hemopneumothorax (Resolved 04/2014) Menopause (Resolved ~1983) Respiratory failure (Resolved 04/2014) Rib fractures (Resolved 04/2014) Surgical History (Last Reviewed 09/18/18 @ 11:18 by Connie Garcia DO) History of bladder surgery (Resolved) History of hip replacement (Resolved 2000) History of left cataract surgery (Resolved 12/11/15) History of oophorectomy (Resolved) History of right cataract surgery (Resolved 12/25/15) History of tonsillectomy (Resolved) History of tracheostomy (Resolved 04/2014) Status post appendectomy (Resolved) Status post cholecystectomy (Resolved 2000) Status post hysterectomy (Resolved 1967) Status post laminectomy (Resolved 2010) Occupational Therapy Inpatient Evaluation/Re-Eval M1 PT/OT-IP Prior Functional Status Start: 09/18/18 13:07 Freq: NEEDED Status: Active Protocol: Document 09/18/18 10:56 AB (Rec: 09/18/18 13:23 AB [id number]) Medical Review Prior Functional Status Medical History Reviewed Yes Communication able to make needs known Mobility and Gait pt stated that she is modified independent with all mobilities and ambulation using a hurrycane indoors and 4WW for outdoor mobility Activities of Daily Living and IADL's has a caregiver that comes in to assist her for a ~ 4 hours everyday: Mornings on MTW; afternoons ThF, evenings: SatSun Prior Functional Level (Other details) pt has had h/o falls, ~ 4 falls for the passed month Social History Household Members none Living Arrangements House Number of Floors (Floors) One Floor Number of Stairs To Enter/Railing? ramp to enter Home Environment Standard Height Toilet Walk in Shower Ramp Home Equipment Four Wheel Walker Raised Toilet Seat Without Armrests Shower Seat without Backrest Hand Held Shower Grab Bars In Shower Additional Social History Comment has a transfer pole next to the bed to assist her with transfers pt has a hurrycane M1 PT/OT-IP Prior Functional Status Start: 09/18/18 14:19 Freq: NEEDED Status: Active Protocol: Document 09/18/18 14:19 CGR (Rec: 09/18/18 14:28 CGR [email or web address]) Medical Review Prior Functional Status Medical History Reviewed Yes Communication able to make needs known Mobility and Gait pt stated that she is modified independent with all mobilities and ambulation using a hurrycane indoors and 4WW for outdoor mobility Activities of Daily Living and IADL's has a caregiver that comes in to assist her for a ~ 4 hours everyday: Mornings on MTW; afternoons ThF, evenings: SatSun Prior Functional Level (Other details) pt has had h/o falls, ~ 4 falls for the passed month Social History Household Members none Living Arrangements House Number of Floors (Floors) Two Floors Number of Stairs To Enter/Railing? ramp to enter, does not go into basement. Home Environment Standard Height Toilet Walk in Shower Home Equipment Four Wheel Walker Straight Cane Raised Toilet Seat Without Armrests Grab Bars Near Toilet Grab Bars In Shower Employment Status Retired M2 OT-IP Current Condition Start: 09/18/18 14:19 Freq: Status: Active Protocol: Document 09/18/18 14:19 CGR (Rec: 09/18/18 14:28 CGR [email or web address]) Occupational Therapy Current Condition Current Condition Evaluation Date 09/18/18 Treatment Diagnosis weakness and GLF M3 OT- IP Subjective and Pain Start: 09/18/18 14:19 Freq: Status: Active Protocol: Document 09/18/18 14:19 CGR (Rec: 09/18/18 14:28 CGR [email or web address]) OT- Subjective Occupational Therapy Visit Type Type Initial Evaluation Visit Start Time 10:00 Visit Stop Time 10:25 Total Visit Minutes 25 Occupational Therapy Visit Comments Patient Comments Pt agreeable to OT services OT Pain Assessment Pain When Pain Assessed At Rest Pain Present Pain Present Denied Pain M4 OT- IP ADL's Start: 09/18/18 14:19 Freq: Status: Active Protocol: Document 09/18/18 14:19 CGR (Rec: 09/18/18 14:28 CGR [email or web address]) OT [id number] General Evaluation Self-Feeding Ability Independent OT ADL-Dressing General Eval Lower Body Dressing Ability Maximum Assistance OT ADL-Toileting General Evaluation Toileting Ability Minimal Assistance Areas Needing Assistance Manage Clothing OT ADL-Bathing Comments OT Bathing Comments OT got pt into shower and shower performed with classroom instructional aide on this date. M5 OT- IP IADL's Start: 09/18/18 14:19 Freq: Status: Active Protocol: Document 09/18/18 14:19 CGR (Rec: 09/18/18 14:28 CGR [email or web address]) OT-Instrumental Activities of Daily Living Home Safety Awareness Awareness of Need for Assistance at Home Good Awareness Ability to Problem Solve Emergency Able to Problem Solve Situations M6 OT- IP Functional Cognition Start: 09/18/18 14:19 Freq: Status: Active Protocol: Document 09/18/18 14:19 CGR (Rec: 09/18/18 14:28 CGR [email or web address]) Cognitive Factors Limiting Selfcare Function Cognitive Ability Level of Alertness Alert Patient Orientation Name Birthday Year Situation Attention Span Ability Capable of Focused Attention Ability to Follow Commands Able to Follow One Step Commands Memory Description Short Term Impaired Safety Awareness Underestimates Need for Assistance Cognitive Comments Cognitive Assessment Comments Pt appears slow to respond and with some deficits. Would benefit from formal cog assessment OT- Vision and Hearing OT- Hearing Assessment OT- Hearing Assessment WFL OT- Vision Assessment Visual Acuity Glasses All The Time Visual Attentiveness WFL Occular Pursuits WFL Visual Convergence WFL Visual Parks WFL Vision Assessment Comments Pts occular movements are delayed M7 OT- IP Mobility and Balance Start: 09/18/18 14:19 Freq: Status: Active Protocol: Document 09/18/18 14:19 CGR (Rec: 09/18/18 14:28 CGR [email or web address]) OT-Transfer Assessment Sit to and From Stand Sit to and from Stand Minimal Assistance Transfers Transfer Ability Minimal Assistance Technique Transfer Destination Chair Shower Stall Toilet Devices Transfer Assistive Devices Gait Belt Front Wheeled Walker Comments Mobility Comments Pt sitting in chair when OT entered. Transfered to toielt and then to shower chair for bathing. Min a with use of walker and verbal cues for hand placement. OT- Gait Assessment Gait Gait Assistance Required: Contact Guard Assist Assistive Devices Assistive Device Front Wheeled Walker OT- Balance Assessment Sitting Balance and Reactions Static Sitting Balance Ability Normal Dynamic Sitting Balance Ability Normal Standing Balance and Reactions Static Standing Balance Ability Fair Dynamic Standing Balance Ability Fair M8 OT- IP Objective Assessments Start: 09/18/18 14:19 Freq: Status: Active Protocol: Document 09/18/18 14:19 CGR (Rec: 09/18/18 14:28 CGR [email or web address]) OT Gross Range of Motion Upper Extremity Range of Motion Assessment Within Functional Limits OT Strength Upper Extremity Strength Assessment Within Functional Limits Comments Strength Comments Grossly 4+/5 OT- Coordination Assessment Upper Extremity Finger to Nose Test Within Functional Limits Finger Tapping Test Within Functional Limits Comments Coordination Comments with slow responses but WFL for daily activity OT Sensation Assessment Comments Summary Comments States sensation at baseline at this time. Edema Edema Absent M9 OT- IP Assessment and Plan Start: 09/18/18 14:19 Freq: Status: Active Protocol: Document 09/18/18 14:19 CGR (Rec: 09/18/18 14:28 CGR [email or web address]) OT Summary Assessment and Plan Potential Rehabilitation Potential Good Analytic Complexity at Evaluation Moderate Summary OT Impairments Balance Functional Cognition Functional Mobility Grooming Dressing Toileting Bathing Toilet Transfers Shower Transfers Assessment Summary Pt presents below her baseline in the above mentioned areas. Will benefit from OT services . Goals Grooming Goal Independent Dressing Goal Independent Cannoneer Sock Aid Toileting Goal Independent Bathing Goal Independent Toilet Transfer Goal Independent Shower Transfer Goal Independent Days to Meet Goals 10 Frequency of Treatment Frequency Of Treatment Once a Day Treatment Plan OT Treatment Plan ADL Training Functional Cognition Training Functional Mobility Therapeutic Exercises Patient/Family Education Discharge Planning Discharge Recommendations Home Equipment Needs TBD at SNF
--- NOTE | 2018-09-18 14:35 | PT.IPTN ---
Physical Therapy Treatment Note M2 PT-IP Current Condition Start: 09/18/18 13:07 Freq: NEEDED Status: Active Protocol: Document 09/18/18 10:56 AB (Rec: 09/18/18 13:23 AB [id number]) Physical Therapy Current Condition Current Condition Evaluation Date 09/18/18 Treatment Diagnosis Rhabdomyolysis; PD; difficulty in Walking Onset Date 09/18/18 Precautions Other Precautions Falls M3 PT-IP Subjective Start: 09/18/18 13:07 Freq: NEEDED Status: Active Protocol: Document 09/18/18 14:35 GGD (Rec: 09/18/18 14:39 GGD [email or web address]) Subjective Physical Therapy Visit Type Type Treatment Note Visit Start Time 14:10 Visit Stop Time 14:35 Total Visit Minutes 25 Number of STUDIO CONTROL OPERATOR Visits 1 Physical Therapy Visit Comments Patient Comments Pt states she would like to go back to bed. M4 PT-IP Mobility and Gait Start: 09/18/18 13:07 Freq: NEEDED Status: Active Protocol: Document 09/18/18 14:35 GGD (Rec: 09/18/18 14:39 GGD [email or web address]) PT-Bed Mobility Assessment Sit to Supine Sit to Supine Moderate Assistance 1 Person Assistance Scooting Scooting to Edge of Bed Minimal Assistance PT-Transfer Assessment Sit to and From Stand Sit to and from Stand Moderate Assistance 1 Person Assistance Use of Upper Extremities Equipment Transfer Assistive Device Gait Belt Front Wheeled Walker Orthotic/Prosthetic Devices or Brace: No Transfers Transfer Destination Bed Transfer Ability Level of Assist Minimal Assistance Use of Upper Extremities Comments Mobility Comments Pt need cues for sit to stand. She had a strong posterior lean in standing and need mod cues and a Gait Assessment Gait Gait Assistance Required: Minimum Assistance Distance (Feet) 25 Able to Maintain Weight Bearing Status Yes During Gait Assistive Devices Assistive Device Gait Belt Front Wheeled Walker Orthotic/Prosthetic Devices or Brace: No Gait Deviations General Gait Pattern Decreased Stride Length Decreased Feet Clearance Festinating Factors Limiting Gait Function Factors Limiting Gait Function Decreased Activity Tolerance Decreased Strength Incoordination Limited Range of Motion Poor Balance Poor Safety Awareness M5 PT-IP Objective Assessments Start: 09/18/18 13:07 Freq: NEEDED Status: Active Protocol: Document 09/18/18 10:56 AB (Rec: 09/18/18 13:23 AB [id number]) Orientation Orientation/Cognition Level of Alertness Alert Orientation Name Place Situation Language Function Ability No Deficits Noted Safety Awareness Decreased Safety Awareness Memory Description Short Term Impaired Gross Range of Motion Lower Extremity ROM Assessment Within Functional Limits Strength Lower Extremity Strength Assessment Bilaterally Impaired Hip 3+/5 Knee 3+/5 Sensation Assessment Sensation Gross Sensation WNL M6 PT-IP Treatment Start: 09/18/18 13:07 Freq: NEEDED Status: Active Protocol: Document 09/18/18 10:56 AB (Rec: 09/18/18 13:23 AB [id number]) Physical Therapy Treatment Education Education Provided Safety M7 PT-IP Assessment and Plan Start: 09/18/18 13:07 Freq: NEEDED Status: Active Protocol: Document 09/18/18 14:35 GGD (Rec: 09/18/18 14:39 GGD [email or web address]) PT Summary Assessment and Plan Summary Assessment Summary Pt need mod A with mobility. She had LOB backwards with standing balance. She was unsteady with gait. She would benefit from SNF to improve mobility. Frequency of Treatment Frequency Of Treatment Twice a Day Treatment Plan Physical Therapy Treatment Plan Bed Mobility Training Transfer Training Gait Training Therapeutic Exercise Balance Retraining Discharge Planning Hot or Cold Pack Neuromuscular Re-ed Coordination Retraining Manual Therapy Other Recommendations and Next Treatment sit<>stand, bed mobility, Focus ambulation, standing bal/joe Recommendations To Nursing Amount of Assist Needed 1 Person Assist Discharge Recommendations PT Discharge Recommendations SNF Rehab
[2018-09-18 14:46] LABS: Procalcitonin 0.11 ng/mL (<0.5)
--- NOTE | 2018-09-18 18:13 | PC.NURSE ---
Addendum entered by Dana Jon R.N. 09/18/18 22:22: Appropriate mentation and conversation this evening shift. No concerns or complaints verbalized. Family visiting. Original Note: Pt feeds self with set up. No swallow deficit. Difficulty getting out of bed. Pt is unable to do for self. Requires two staff assist. Up to commode. Denies pain.
[2018-09-18] MEDS: CARBIDOPA-LEVODOPA ER 50/200 TABLET 1 EACH PO (20:40)
[2018-09-18] MEDS: Rivastigmine Tartrate 1 EACH PO (20:41)
[2018-09-19] VITALS (9 sets, daily range): BP systolic 136–177; BP diastolic 80–88; PULSE 79–91; RESP 16–20; TEMP 36.7–37; O2SAT 93–97
--- NOTE | 2018-09-19 01:00 | PC.NURSE ---
2300- Pt receiving rehydratation via IV fluids, running as ordered into R wrist IV. Heavy 2PA to BSC as pt is very weak & has Parkinson's @ baseline. SQ Heparin held per previous RN as pt's platelets were 98; will cont to watch closely. Open skin abrasion's on L elbow & arm & R thigh all covered. VSS; RA tolerated well; BA on as pt has hx of falls. 0300- Pt had incontinent episode of urine in bed. Up to [facility] 2[facility], pt seems more confused than earlier in the evening. Back to bed, NS infusing, BA on.
[2018-09-19 05:39] LABS: Add Manual Diff / Slide Review NO; Basophils Absolute Auto 0 /uL (0-100); Basophils Percent Auto 0.6 % (0-2); Eosinophils Absolute Auto 100 /uL (0-450); Eosinophils Percent Auto 3.1 % (2-4); Hematocrit 41.7 % (36-46); Hemoglobin 13.9 g/dL (12.0-16.0); Lymphocytes Absolute Auto 700 /uL (1100-4500); Lymphocytes Percent Auto 15.1 % (25-40); Mean Corpuscular HGB Conc 33.3 % (30-36); Mean Corpuscular Hemoglobin 28.6 PG (26-34); Mean Corpuscular Volume 85.8 fL (80-100); Monocytes Absolute Auto 500 /uL (0-900); Monocytes Percent Auto 10.9 % (3-14); Neutrophils Absolute Auto 3300 /uL (1500-7000); Neutrophils Percent Auto 70.3 % (50-75); Platelet Count 72 X10^3/uL (150-400); Red Blood Cell Count 4.85 X10^6/uL (4.0-5.2); Red Cell Distribution Width 14.7 % (11.6-14.8); White Blood Cell Count 4.7 X10^3/uL (4.5-11.0)
[2018-09-19 05:53] LABS: Alanine Aminotransferase 14 IU/L (9-52); Albumin 3.1 g/dL (3.5-5.0); Albumin Globulin Ratio 1.1 (1.0-2.8); Alkaline Phosphatase 65 U/L (38-126); Aspartate Aminotransferase 63 IU/L (14-36); BUN Creatinine Ratio 32.7 (6-22); Bilirubin Total 0.5 mg/dL (0.2-1.3); Blood Urea Nitrogen 36 mg/dL (7-17); Calcium 8.3 mg/dL (8.4-10.2); Carbon Dioxide 25 mmol/L (22-32); Chloride 109 mmol/L (98-107); Estimated Glomerular Filt Rate 47.9 mL/min (>60); Globulin 2.8 g/dL (1.7-4.1); Glucose 97 mg/dL (80-110); HEMOLYSIS < 15 (0-50); Magnesium 1.9 mg/dL (1.6-2.3); Potassium 3.8 mmol/L (3.4-5.1); Sodium 140 mmol/L (137-145); Total Protein 5.9 g/dL (6.3-8.2)
[2018-09-19 06:10] LABS: Procalcitonin < 0.05 ng/mL (<0.5)
--- NOTE | 2018-09-19 09:00 | P.PN_ITS ---
Subjective Date Patient Seen: 09/19/18 Interval history: Patient is 77-year-old female with Parkinson's disease, pe ripheral neuropathy, recurrent falls, admitted to hospital due to multiple falls, acute renal failure, rhabdomyolysis, UTI. Patient complains of weakness, tremors, numbness in the feet, and endorses falls associated with her Parkinson's and neuropathy. Also endorses difficulty with swallowing liquids, solid food and pills. Exam Vital Signs (past 8 hours): - 09/19/18 00:56 09/19/18 04:16 Temperature 98.4 F Pulse Rate 82 Respiratory Rate 16 Blood Pressure 143/81 H Pulse Oximetry 95 95 Oxygen Delivery Method Room Air Narrative Exam Narrative: GENERAL: Alert cooperative elderly female in no acute distress HEENT: Head normocephalic, atraumatic. Mucous membranes dry. Pupils equal. CHEST: Clear to auscultation bilaterally. CARDIAC: Regular rate and rhythm. ABDOMEN: Nondistended, soft, nontender EXTREMITIES: no pretibial edema. NEUROLOGICAL: Appears well oriented, left-sided parkinsonian tremor noted, general rigidity noted SKIN: Scattered bruising on sides and back Objective Labs Result Diagrams: 09/19/18 04:54 09/19/18 04:54 Labs: Laboratory Results - last 24 hr 09/18/18 09/19/18 09/19/18 06:06 04:54 04:54 WBC 4.7 RBC 4.85 Hgb 13.9 Hct 41.7 MCV 85.8 MCH 28.6 MCHC 33.3 RDW 14.7 Plt Count 72 L Neut % (Auto) 70.3 Lymph % (Auto) 15.1 L Edwards % (Auto) 10.9 Eos % (Auto) 3.1 Baso % (Auto) 0.6 Neut # (Auto) 3300 Lymph # (Auto) 700 L Edwards # (Auto) 500 Eos # (Auto) 100 Baso # (Auto) 0 Sodium 140 Potassium 3.8 Chloride 109 H Carbon Dioxide 25 BUN 36 H Creatinine 1.10 H Estimated GFR 47.9 L BUN/Creatinine Ratio 32.7 H Glucose 97 Calcium 8.3 L Magnesium 1.9 Total Bilirubin 0.5 AST 63 H ALT 14 Alkaline Phosphatase 65 Total Protein 5.9 L Albumin 3.1 L Globulin 2.8 Albumin/Globulin Ratio 1.1 Procalcitonin 0.11 09/19/18 04:54 WBC RBC Hgb Hct MCV MCH MCHC RDW Plt Count Neut % (Auto) Lymph % (Auto) Edwards % (Auto) Eos % (Auto) Baso % (Auto) Neut # (Auto) Lymph # (Auto) Edwards # (Auto) Eos # (Auto) Baso # (Auto) Sodium Potassium Chloride Carbon Dioxide BUN Creatinine Estimated GFR BUN/Creatinine Ratio Glucose Calcium Magnesium Total Bilirubin AST ALT Alkaline Phosphatase Total Protein Albumin Globulin Albumin/Globulin Ratio Procalcitonin < 0.05 Assessment & Plan Assessment & Plan narrative: Viviane Robin is a 77-year-old female with a past medical history significant for Parkinson's disease with mild dementia, depression, recurrent falls, lumbar spinal stenosis and peripheral neuropathy who presented after ground level fall with right elbow pain and weakness. 1. Acute rhabdomyolysis with dehydration after ground level fall, present on admission. Active. -Initial total CK 2544. Repeat total CK trending down at 1432. -Continue IV fluid hydration with normal saline decreased from 100 mL/hr to 50 mL/hr. 2. Acute urinary tract infection, present on admission. Active. -Urinalysis appears grossly infected with urine culture pending. Continue ceftriaxone 2 g daily pending identification and sensitivities. 3. Acute kidney injury, prerenal, on chronic kidney disease stage 3, present on admission. Active. -Secondary to dehydration more than rhabdo. -Initial creatinine 2.10. Baseline creatinine between 1.2-1.4. Creatinine trending down to 1.1. -Continue IV fluid hydration as above. -Avoid nephrotoxic agents. -Continue to monitor renal function. 4. Acute on chronic thrombocytopenia, not present on admission. Stable. -patient's platelet counts tend to run in low 100 range on historical labs -platelets 170 on admission but trending down to 72 currently -likely acute component secondary to hemodilution and acute infection. -discontinue heparin for DVT prophylaxis -Continue to monitor platelets closely. 5. Parkinson's disease, chronic, present on admission. Stable. -Continue carbidopa levodopa IR 50/200 mg 3 times a day and carbidopa levodopa ER 50/200 mg once daily at bedtime. -Continue rivastigmine tartrate twice daily. -consult PT and OT due to recurrent falls -consult ST for swallow evaluation, patient with complaint of difficulty swallowing fluids, solid food and pills 6. Urinary incontinence and overactive bladder, chronic, present on admission. Stable. -Continue trospium 20 mg twice daily. 7. Depression, chronic, present on admission. Stable. -Patient inquired as to how to better control her depression for which counseling -Continue fluoxetine 60 mg daily. Disposition: Patient with improving hospital course but will likely require senior care facility rehab upon discharge. Further complicating matters she states she has at least 10 cats inside the house which she has been taking care of. Patient was previously established with Dr. julita Carrasco before he retired and currently without PCP Quality [facility] Deep Vein Thrombosis/Pulmonary Embolism Present on Admission: No
--- NOTE | 2018-09-19 09:01 | PT.IPTN ---
This is to certify that I reviewed this documentation and I am involved with this pt's care. Luis Chavez, PT, DPT Current Diagnoses Rhabdomyolysis (09/18/18) Physical Therapy Treatment Note M2 PT-IP Current Condition Start: 09/18/18 13:07 Freq: NEEDED Status: Active Protocol: Document 09/18/18 10:56 AB (Rec: 09/18/18 13:23 AB [id number]) Physical Therapy Current Condition Current Condition Evaluation Date 09/18/18 Treatment Diagnosis Rhabdomyolysis; PD; difficulty in Walking Onset Date 09/18/18 Precautions Other Precautions Falls M3 PT-IP Subjective Start: 09/18/18 13:07 Freq: NEEDED Status: Active Protocol: Document 09/19/18 10:01 BS (Rec: 09/19/18 10:14 BS [email or web address]) Subjective Physical Therapy Visit Type Type Treatment Note Visit Start Time 09:01 Visit Stop Time 09:34 Total Visit Minutes 33 Number of TEA LEAF READER Visits 0 Physical Therapy Visit Comments Patient Comments Pt states she wants to get up OOB and walking. She is motivated to get stronger and continues to state that she would like to go home and not to a nursing facility. Therapy Pain Assessment Pain When Pain Assessed At Rest Pain Present Pain Present Denied Pain M4 PT-IP Mobility and Gait Start: 09/18/18 13:07 Freq: NEEDED Status: Active Protocol: Document 09/19/18 10:01 BS (Rec: 09/19/18 10:14 BS [email or web address]) PT-Bed Mobility Assessment Rolling Type of Rolling Log Rolling Roll to Right Level of Assist Maximal Assistance 1 Person Assistance Supine to Sit Supine to Sit Maximum Assistance Bedrails Scooting Scooting to Edge of Bed Moderate Assistance PT-Transfer Assessment Sit to and From Stand Sit to and from Stand Moderate Assistance Use of Upper Extremities Equipment Transfer Assistive Device Bed Rail Gait Belt Front Wheeled Walker Orthotic/Prosthetic Devices or Brace: No Transfers Transfer Destination Bedside Commode Transfer Technique Stand Step Pivot Transfer Ability Level of Assist Minimal Assistance Moderate Assistance Use of Upper Extremities Comments Mobility Comments Mod A at posterior trunk to assist with standing from sitting EOB. Mod A initially to maintain balance in standing with B UEs on FWW, pt tends to lean back with most of her weight on her heels, able to correct after a few minutes with Mod VCs for anterior weight shift. Min A at posterior trunk to steady pt with stand step pivot transfer from EOB to beside commode. Gait Assessment Gait Gait Assistance Required: Contact Guard Assist Distance (Feet) 75 Able to Maintain Weight Bearing Status Yes During Gait Assistive Devices Assistive Device Front Wheeled Walker Orthotic/Prosthetic Devices or Brace: No Gait Deviations General Gait Pattern Decreased Stride Length Decreased Feet Clearance Flexed Trunk Comments Gait Comments Max VCs for increased step length and hip flexion bilaterally and for trunk extension to avoid flexed posture, CGA with gait belt for safety. PT-Balance Assessment Sitting Balance and Reactions Static Sitting Balance Ability Good Dynamic Sitting Balance Ability Good Standing Balance and Reactions Static Standing Balance Ability Good Dynamic Standing Balance Ability Good M5 PT-IP Objective Assessments Start: 09/18/18 13:07 Freq: NEEDED Status: Active Protocol: Document 09/18/18 10:56 AB (Rec: 09/18/18 13:23 AB [id number]) Orientation Orientation/Cognition Level of Alertness Alert Orientation Name Place Situation Language Function Ability No Deficits Noted Safety Awareness Decreased Safety Awareness Memory Description Short Term Impaired Gross Range of Motion Lower Extremity ROM Assessment Within Functional Limits Strength Lower Extremity Strength Assessment Bilaterally Impaired Hip 3+/5 Knee 3+/5 Sensation Assessment Sensation Gross Sensation WNL M6 PT-IP Treatment Start: 09/18/18 13:07 Freq: NEEDED Status: Active Protocol: Document 09/18/18 10:56 AB (Rec: 09/18/18 13:23 AB [id number]) Physical Therapy Treatment Education Education Provided Safety M7 PT-IP Assessment and Plan Start: 09/18/18 13:07 Freq: NEEDED Status: Active Protocol: Document 09/19/18 10:01 BS (Rec: 09/19/18 10:14 BS [email or web address]) PT Summary Assessment and Plan Potential Rehabilitation Potential Good Status of Condition at Evaluation Stable Summary Assessment Summary Pt tolerated session well without complaints of pain or dizziness/lightheadness with activity. Pt was motivated to ambulate today and did so without increased levels of fatigue. Pt returned to sitting upright in chair with chair alarm set and call light within reach. Pt currently requires assistance with all mobility and has poor safety awareness with increased risk for falls. Frequency of Treatment Frequency Of Treatment Twice a Day Treatment Plan Physical Therapy Treatment Plan Bed Mobility Training Transfer Training Gait Training Therapeutic Exercise Balance Retraining Discharge Planning Neuromuscular Re-ed Coordination Retraining Other Recommendations and Next Treatment Gait training, transfers. Focus Recommendations To Nursing Amount of Assist Needed 1 Person Assist Discharge Recommendations PT Discharge Recommendations SNF Rehab
[2018-09-19] MEDS: FLUoxetine 20 MG CAPSULE 60 MG PO (10:08)
[2018-09-19] MEDS: CEFTRIAXONE 2 GM/50 ML FROZ.PIGGY IV (10:08)
[2018-09-19] MEDS: Rivastigmine Tartrate 1 EACH PO ×2 (10:08→20:47)
[2018-09-19] MEDS: CARBIDOPA-LEVODOPA 25/100 TABLET 2 EACH PO ×3 (10:08→17:44)
[2018-09-19] MEDS: SODIUM CHLORIDE 0.9% 1,000 ML 50 ML IV (10:09)
--- NOTE | 2018-09-19 12:07 | PC.NURSE ---
Day shift walked by pt's room and she asked for help, wanted to know where her 3 grandchildren were. stated to pt that there were no children here and that she was in the hospital. She stated she knew she was in the hospital however someone dropped her grandkids in her bed last night and now they weren't there. explained that I would go investigate about her grandkids. On assessment in about an hour, she was able to answer orientation questions correctly and there was no further mention of her grandchildren. Pt did get up for a shower today, 2 person assist to help bath and transfer safely.
--- NOTE | 2018-09-19 12:25 | CM.DPC ---
DCP/continued: Received phone message from Heather at [facility] she reports that they can accpet patient when medically stable. D/C not anticipated before Thursday09-21-18. P: [facility] when stable. CM team following closely. HENRIETTA Charlton
--- NOTE | 2018-09-19 14:29 | PT.IPTN ---
This is to certify that I reviewed this documentation and I am involved with this pt's care. Luis Chavez, PT, DPT Current Diagnoses Rhabdomyolysis (09/18/18) Physical Therapy Treatment Note M2 PT-IP Current Condition Start: 09/18/18 13:07 Freq: NEEDED Status: Active Protocol: Document 09/18/18 10:56 AB (Rec: 09/18/18 13:23 AB [id number]) Physical Therapy Current Condition Current Condition Evaluation Date 09/18/18 Treatment Diagnosis Rhabdomyolysis; PD; difficulty in Walking Onset Date 09/18/18 Precautions Other Precautions Falls M3 PT-IP Subjective Start: 09/18/18 13:07 Freq: NEEDED Status: Active Protocol: Document 09/19/18 13:50 BS (Rec: 09/19/18 15:26 BS [email or web address]) Subjective Physical Therapy Visit Type Type Treatment Note Visit Start Time 13:29 Visit Stop Time 13:55 Total Visit Minutes 26 Number of SENIOR JAVA DEVELOPER Visits 0 Physical Therapy Visit Comments Patient Comments Pt up in bedside chair and agreeable to PT. She requests to use the restroom before ambulating in hallway. M4 PT-IP Mobility and Gait Start: 09/18/18 13:07 Freq: NEEDED Status: Active Protocol: Document 09/19/18 13:50 BS (Rec: 09/19/18 15:26 BS [email or web address]) PT-Transfer Assessment Sit to and From Stand Sit to and from Stand Moderate Assistance Use of Upper Extremities Equipment Transfer Assistive Device Gait Belt Front Wheeled Walker Orthotic/Prosthetic Devices or Brace: No Transfers Transfer Destination Toilet Transfer Ability Level of Assist Minimal Assistance Moderate Assistance Use of Upper Extremities Comments Mobility Comments Pt performed sit->stand from bedside chair with Mod VCs for technique, Mod A at posterior trunk and B UE support on chair arm rests. Pt continues to require cuing to shift weight anteriorly once standing. Pt ambulated to restroom with CGA for safety and completed toileting transfer with Mod A from sit to stand. Pt able to maintain standing balance with RUE support on grab bar and CGA while completing perianal care after toileting. Gait Assessment Gait Gait Assistance Required: Contact Guard Assist Distance (Feet) 100 Able to Maintain Weight Bearing Status Yes During Gait Assistive Devices Assistive Device Front Wheeled Walker Orthotic/Prosthetic Devices or Brace: No Gait Deviations General Gait Pattern Decreased Stride Length Decreased Feet Clearance Flexed Trunk Comments Gait Comments Max VCs for increased step length and hip flexion bilaterally. Pt required Max VCs to keep FWW close to her. She demo's forward flexed posture. PT-Balance Assessment Sitting Balance and Reactions Static Sitting Balance Ability Good Dynamic Sitting Balance Ability Good Standing Balance and Reactions Static Standing Balance Ability Good Dynamic Standing Balance Ability Good Device Used FWW M5 PT-IP Objective Assessments Start: 09/18/18 13:07 Freq: NEEDED Status: Active Protocol: Document 09/18/18 10:56 AB (Rec: 09/18/18 13:23 AB [id number]) Orientation Orientation/Cognition Level of Alertness Alert Orientation Name Place Situation Language Function Ability No Deficits Noted Safety Awareness Decreased Safety Awareness Memory Description Short Term Impaired Gross Range of Motion Lower Extremity ROM Assessment Within Functional Limits Strength Lower Extremity Strength Assessment Bilaterally Impaired Hip 3+/5 Knee 3+/5 Sensation Assessment Sensation Gross Sensation WNL M6 PT-IP Treatment Start: 09/18/18 13:07 Freq: NEEDED Status: Active Protocol: Document 09/18/18 10:56 AB (Rec: 09/18/18 13:23 AB [id number]) Physical Therapy Treatment Education Education Provided Safety M7 PT-IP Assessment and Plan Start: 09/18/18 13:07 Freq: NEEDED Status: Active Protocol: Document 09/19/18 13:50 BS (Rec: 09/19/18 15:26 BS [email or web address]) PT Summary Assessment and Plan Potential Rehabilitation Potential Good Status of Condition at Evaluation Stable Summary Assessment Summary Pt continues to be motivated to get stronger. She requires Mod A at for sit->stand transfers and cueing to shift weight anteriorly. She ambulated x100' with use of FWW and CGA for safety, but continues to demo decreased activity tolerance, decreased safety awareness, and balance impairments in standing. Frequency of Treatment Frequency Of Treatment Twice a Day Treatment Plan Physical Therapy Treatment Plan Bed Mobility Training Transfer Training Gait Training Therapeutic Exercise Balance Retraining Discharge Planning Neuromuscular Re-ed Coordination Retraining Other Recommendations and Next Treatment Gait training, transfers. Focus Recommendations To Nursing Amount of Assist Needed 2 Person Assist Discharge Recommendations PT Discharge Recommendations SNF Rehab
--- NOTE | 2018-09-19 18:23 | PC.NURSE ---
Addendum entered by Dana Jon R.N. 09/19/18 19:59: This flex o writer operator enters pt room and pt asks, Who are you? This flex o writer operator re-introduced self to patient. Patient asks, Are we moving into the other room? Reoriented pt to place. This looks like a garage. Patient accepts reorientation. Calmly lying in bed watching television. Original Note: Pt up in chair @ beginning of shift. Chair alarm in place. Granddaughter in to visit. Able to feed self with setup. Requests assistance to toilet in bathroom. Pt is able to stand and ambulate easier than last evening with one assist. Returned to bed following toileting. Meds whole with ice cream. Denies pain. IV fluids infusing as ordered to right wrist iv site without difficulty.
[2018-09-19] MEDS: CARBIDOPA-LEVODOPA ER 50/200 TABLET 1 EACH PO (20:46)
[2018-09-20] VITALS (14 sets, daily range): BP systolic 114–184; BP diastolic 69–104; PULSE 74–87; RESP 16–20; TEMP 36.4–36.9; O2SAT 94–98
[2018-09-20] MEDS: SODIUM CHLORIDE 0.9% 1,000 ML 50 ML IV (02:43)
[2018-09-20 05:31] LABS: Add Manual Diff / Slide Review NO; Basophils Absolute Auto 0 /uL (0-100); Basophils Percent Auto 0.9 % (0-2); Eosinophils Absolute Auto 200 /uL (0-450); Hematocrit 39.6 % (36-46); Hemoglobin 13.5 g/dL (12.0-16.0); Lymphocytes Absolute Auto 800 /uL (1100-4500); Lymphocytes Percent Auto 17.9 % (25-40); Mean Corpuscular Volume 85.2 fL (80-100); Monocytes Absolute Auto 500 /uL (0-900); Monocytes Percent Auto 11.4 % (3-14); Neutrophils Absolute Auto 2800 /uL (1500-7000); Neutrophils Percent Auto 65.8 % (50-75); Platelet Count 89 X10^3/uL (150-400); Red Blood Cell Count 4.65 X10^6/uL (4.0-5.2); Red Cell Distribution Width 14.6 % (11.6-14.8); White Blood Cell Count 4.3 X10^3/uL (4.5-11.0)
[2018-09-20 05:46] LABS: BUN Creatinine Ratio 26.7 (6-22); Blood Urea Nitrogen 24 mg/dL (7-17); Calcium 8.4 mg/dL (8.4-10.2); Carbon Dioxide 26 mmol/L (22-32); Chloride 106 mmol/L (98-107); Estimated Glomerular Filt Rate > 60.0 mL/min (>60); Glucose 112 mg/dL (80-110); HEMOLYSIS 15 (0-50); Potassium 3.6 mmol/L (3.4-5.1); Sodium 138 mmol/L (137-145)
[2018-09-20 06:09] LABS: Creatine Kinase 436 U/L (30-135)
[2018-09-20] MEDS: LABETALOL 20 MG/4 ML SYRINGE 10 MG IV (08:30)
--- NOTE | 2018-09-20 08:42 | DI.MRI.S_ITS ---
PROCEDURE: MR STROKE Pre- and post-contrast brain MRI, non-contrast brain MR angiogram, pre- and postcontrast neck MR angiogram INDICATIONS: r/o stroke, lethargy and elevated bp TECHNIQUE: Brain: Noncontrast axial T1 spin echo, axial T2 fast spin echo, sagittal and axial FLAIR, coronal T2 fast spin echo, axial gradient echo, axial diffusion and ADC through the brain. After the administration of contrast, axial 3D VIBE of the cranial vasculature and brain. Brain MRA: Non-contrast 3-D time of flight MR angiogram, with multiple hhxnzdx-xxvfobimk-mdiaqxmlhw (MIP) reformats performed. Neck MRA: Axial and sagittal TruFISP through the neck. Coronal dynamic MR angiogram during administration of contrast in the arterial and venous phases, with 3-dimenstional rragcpq-humqgnmpl-gscfkwjzlf (MIP) reformats constructed from subtraction images. COMPARISON: None. FINDINGS: Image quality: Limited by patient's inability to fully cooperate with the examination and therefore the dedicated head coil and neck coil devices were modified to allow visualization. The study is diagnostic. BRAIN: CSF spaces: Ventricles are normal in size and shape. Basal cisterns are patent. No extra-axial fluid collections. Brain: No intracranial bleeds or mass effects. Riley-white matter interface is normal. Diffusion weighted images show no acute ischemic insults. Brainstem appears normal. Normal intravascular flow voids are present. No abnormal intracranial enhancement. Skull and face: Calvarial marrow signal is normal. Orbits appear normal. Sinuses: Sinuses and mastoids are clear. BRAIN MR ANGIOGRAM: Anterior circulation: Intracranial internal carotid arteries are normal in size and enhancement. The flow within the paired anterior cerebral arteries is normal and symmetric. The flow within the middle cerebral arteries is normal and symmetric. The anterior communicating artery is seen. No stenoses, occlusions, or aneurysms. Posterior circulation: The visualized portions of the vertebral arteries demonstrate normal caliber, and join to form a normal appearing basilar artery. The flow within the posterior cerebral arteries is normal and symmetric. No stenoses, occlusions, or aneurysms. NECK MR ANGIOGRAM: Carotids: Great vessels demonstrate a conventional anatomy as they arise from the aortic arch. The origins of the common carotid arteries appear patent. The calibers and courses of both common carotid arteries are normal. The bifurcation regions appear normal bilaterally. The internal carotid arteries demonstrate normal course and caliber. Posterior circulation: The origins of the vertebral arteries appear patent. More superior portions of both vertebral arteries demonstrate normal course and caliber, and join to form a normal appearing basilar artery. Miscellaneous: Subclavian arteries appear patent. Pre-contrast images through the neck show no soft tissue abnormalities. IMPRESSION: BRAIN MRI: Mild to moderate microvascular atherosclerotic change in the deep white matter of each hemispheric but no sign of acute or subacute ischemic injury, chronic stroke, mass or intracranial hemorrhage is found. BRAIN MR ANGIOGRAM: Normal intracranial MR angiogram. NECK MR ANGIOGRAM: Normal cervical MR angiogram. Dictated by: Shyam Burleson M.D. on 09/20/2018 at 12:02 Approved by: Shyam Burleson M.D. on 09/20/2018 at 12:03
--- NOTE | 2018-09-20 08:58 | PC.NURSE ---
arrived in room to help AIRCRAFT ARMAMENT MECHANIC get pt to BSC, pt was more lethargic than she had been this weekend, was able to participate a little with getting up to the BSC. when it was time to get back to bed, she was more lethargic and wouldn't respond well to questions. Sternal rub was done and she would open her eyes like slits, and tried to bat my hand away. but then returned to not responding. Returned to bed and VS were obtained. elevated BP, 180/100. Notified MD who arrived in room to assess pt. she continued to be lethargic. IV labetolol ordered and given at 0830. BP trending down. CT brain w/o contrast ordered, pt down to scan at 0857. returned to floor at 0906. MR stroke ordered, plan to complete at 1030, will call family to get interview sheet completed.
--- NOTE | 2018-09-20 08:59 | DI.CT.S_ITS ---
PROCEDURE: CT HEAD/BRAIN WO CON INDICATIONS: Sudden onset confusion. TECHNIQUE: Noncontrast 4.5 mm thick angled axial sections acquired from the foramen magnum to the vertex, with coronal and sagittal reformats. For radiation dose reduction, the following was used: automated exposure control, adjustment of mA and/or kV according to patient size. COMPARISON: [facility], CT, CT HEAD/BRAIN WO CON, 09/17/2018, 23:15. [facility], CT, HEAD WITHOUT CONTRAST, 09/18/2015, 13:41. FINDINGS: Image quality: Excellent. CSF spaces: Basal cisterns are patent. No extra-axial fluid collections. Ventricles are normal in size and shape. Brain: No midline shift. No intracranial masses or hemorrhage. Riley-white matter interface is normal. Skull and face: Calvarium and visualized facial bones are intact, without suspicious lesions. Sinuses: Visualized sinuses and mastoids are clear. IMPRESSION: Mild microvascular atherosclerotic change, no acute disease, no source of sudden onset change in mental status found. Dictated by: Shyam Burleson M.D. on 09/20/2018 at 9:14 Approved by: Shyam Burleson M.D. on 09/20/2018 at 9:15
[2018-09-20] MEDS: FLUoxetine 20 MG CAPSULE 60 MG PO (09:52)
[2018-09-20] MEDS: Rivastigmine Tartrate 1 EACH PO ×2 (09:52→22:28)
[2018-09-20] MEDS: CARBIDOPA-LEVODOPA 25/100 TABLET 2 EACH PO ×3 (09:53→17:36)
[2018-09-20] MEDS: ASPIRIN 325 MG TABLET PO (10:00)
--- NOTE | 2018-09-20 10:57 | ST.IPCSEOM ---
Care Team Visit Care Team Role Provider Type Yfn Arreaga MD Primary Care Provider Physician Specialty: Internal Medicine Address: [address] [place] [address], [id number] Email: Paul Suarez DO Emergency Provider Physician Specialty: Emergency Medicine Address: [address] [place] [id number] Email: Junior Roe MD Admit Provider Physician Attending Provider Other Providers Specialty: Internal Medicine Address: [address] [place] [address], [id number] Email: Current Diagnoses Rhabdomyolysis (09/18/18) Past Medical History (Last Updated 09/18/18 @ 11:44 by Connie Garcia DO) Dementia with Parkinsonism (Acute Medical) Arthritis (Chronic Medical) Hypertension (Chronic Medical) Lumbar spinal stenosis (Chronic Medical) Parkinson's disease (Chronic Medical) Peripheral neuropathy (Chronic Medical) Urinary incontinence (Chronic Medical) Fall from ground level (Resolved Medical 04/2014) Rib fractures, hemopneumothorax, respiratory failure, trach; hospitalized 3+ months, SNF 2 months, returned home 09/2014 Hemopneumothorax (Resolved Medical 04/2014) Menopause (Resolved Medical ~1983) Respiratory failure (Resolved Medical 04/2014) Mechanical ventilation 6 weeks Rib fractures (Resolved Medical 04/2014) Speech-Language Pathology Swallow Evaluation WINDOWS SYSTEM ADMIN Clinical Swallow Evaluation Start: 09/20/18 10:26 Freq: Status: Active Protocol: Document 09/20/18 10:26 CHAN (Rec: 09/20/18 10:56 STEW [id number]) Clinical Swallow Evaluation Session Time Visit Start Time 09:55 Visit Stop Time 10:20 Total Visit Minutes 25 Referral Reason for Referral dysphagia Setting Assessment Location Acute Care Visit Type Note Type Initial Evaluation Next Note Type Next Note Type Treatment Note Patient Information Identification Type Name ID Wristband History Viviane Robin is a 77-year-old female with a past medical history significant for Parkinson's disease with dementia, depression, recurrent falls, lumbar spinal stenosis and peripheral neuropathy who presented after ground level fall with right elbow pain and weakness. The patient reports it is she has fallen twice in the last 2 days. Two days ago she fell after she tripped on her feet. She then climbed into bed and was unable to get up due to positioning. She laid there for approximately 14 hours until her caregiver arrived and found her. She then fell again last night when she bent over to pick remover a piece of paper. She believe she fell last night due to weakness. She endorses increased urinary frequency, chronic constipation and right arm soreness. She denies headache, chest pain, shortness of breath, abdominal pain, nausea, vomiting, fever , chills, dysuria, or diarrhea . Pt reported that she frequently chokes on her solid foods, especially if the food is not cut into small pieces. She reported no difficulty with thin liquids. Subjective Observations Pt was sleepy in bed. Able to arouse with verbal prompt. Pt agreeable to swallow evaluation. Evaluation Liquids Trialed Ice Chips Thin Solids Trialed Puree Dysphagia Mechanical Dysphagia Advanced Administration Type Tea Spoon Controlled Cup Sip Cup Consecutive Sips Straw Dependent Feeding Oral Impairment Moderately Impaired Oral Strategies Upright at 90 degrees Lingual Sweep Dementia Strategies Oral Phase Comments Pt demonstrated reduced ROM and strength of lingual and cheek muscles. Unable to puff cheeks, unable to lateralize tongue to buccal sulcas left and right. Pt has natural teeth in good condition. Slow diadochokenesis. No oral residue with trialed food. Pt refused fresh fruit as it was too difficult to chew. Pharyngeal Impairment Moderately Impaired Pharyngeal Strategies Sitting Upright (90 deg) Small Bites and Sips Alternate Liquids/Solids Pharyngeal Phase Comments Pt demonstrated a tongue pump pre-swallow indicating reduced strength at tongue base. Delayed swallow response. No observed cough/choke or wet voicing noted. Reduced hyolaryngeal elevation and hyoid bone excursion. Pt safely tolerated altered texture and thin liquids. Findings Dysphagia Type mild-moderate oropharyngeal dysphagia Rehabilitation Potential Fair Impressions Pt presented with oral/ pharyngeal dysphagia secondary to dx of Parkinson's. Pt aware of choking with foods that are not cut into small pieces. Pt safely tolerated thin liquids and dysphagia mechanical texture. Meds whole in applesauce. Aspiration precautions posted. Diet Recommendations Liquids Order Thin Diet Order Dysphagia Mechanical Medication Recommendations Whole in Carrier Additional Dietary Needs Encourage to Self-Feed Aspiration Precautions Recommended Precautions Upright at 90 Degrees Small Bites/Sips Check for Pocketing Treatment Plan Placement Recommendations after Assisted Facility Discharge Appropriate for Therapy Yes: ST to f/u 1-2 x for diet tolerance and pt education Dysphagia Goals Pt will safely tolerate least- restrictive diet without s/sx aspiration to meet hydration and nutritional needs. WINDOWS SYSTEM ADMIN Follow Up 1-2x
--- NOTE | 2018-09-20 12:04 | PT.IPTN ---
Current Diagnoses Rhabdomyolysis (09/18/18) Physical Therapy Treatment Note M2 PT-IP Current Condition Start: 09/18/18 13:07 Freq: NEEDED Status: Active Protocol: Document 09/18/18 10:56 AB (Rec: 09/18/18 13:23 AB [id number]) Physical Therapy Current Condition Current Condition Evaluation Date 09/18/18 Treatment Diagnosis Rhabdomyolysis; PD; difficulty in Walking Onset Date 09/18/18 Precautions Other Precautions Falls M3 PT-IP Subjective Start: 09/18/18 13:07 Freq: NEEDED Status: Active Protocol: Document 09/20/18 11:15 HH (Rec: 09/20/18 12:04 HH [id number]) Subjective Physical Therapy Visit Type Type Patient Unavailable Visit Start Time 11:15 Notes Per RN, Pt went down for MRI stroke screening. Pt cont to be lethargic and elevated BP early this AM 180/100. is aware. Reattempt PT this pm.
--- NOTE | 2018-09-20 13:37 | CM.DPC ---
DCP/Continued: Reviewed chart. Per Dr. Cevallos in rounds yesterday there was concern on whether or not patient had cats in her residence that were not being cared for? Dr. Cevallos indicates that he had heard up too 30cats. Notified Dr. Cevallos that CREDIT RISK OFFICER would contact [facility] [employer] on 09-20-18 if needed. CREDIT RISK OFFICER placed call to patient's daughter/Miguel this AM. She reports that patient does not have 30 cats. Patient attributes some of patient's stories to her Parkinson's disease. Patient being followed closely by neurologist and reports not unusual for patient to have mental disturbances with condition. Daughter reports typically the stories patient tells are harmless but can be worrisome. Daughter reports patient resides alone but does have caregivers. It is anticipated that patient will go to SNF when medically stable. Patient has been accepted at [facility]. D/C anticipated for tomorrow 09-21-18. P: [facility] when medically stable. HENRIETTA Charlton
--- NOTE | 2018-09-20 15:05 | PC.NURSE ---
Pt has perked up in the afternoon. States I am not a morning person. Oriented to self and place. Denies pain. Seen by ST and started on mechanical soft diet with thin liquids. Up to chair with OT. Independent with self cares such as teeth cleaning and feeding herself. Transfer is slow to get started but once she is up she needs minimal assistance. BP within the normal range 120s systolic and 80s diastolic. MRI and CT scans did not show any acute changes. Family in room visiting with pt.
--- NOTE | 2018-09-20 15:21 | OT.IP.TRT ---
Current Diagnoses Rhabdomyolysis (09/18/18) Occupational Therapy Treatment Note M2 OT-IP Current Condition Start: 09/18/18 14:19 Freq: Status: Active Protocol: Document 09/18/18 14:19 CGR (Rec: 09/18/18 14:28 CGR [email or web address]) Occupational Therapy Current Condition Current Condition Evaluation Date 09/18/18 Treatment Diagnosis weakness and GLF M3 OT- IP Subjective and Pain Start: 09/18/18 14:19 Freq: Status: Active Protocol: Document 09/20/18 15:11 [facility] (Rec: 09/20/18 15:20 [facility] [email or web address]) OT- Subjective Occupational Therapy Visit Type Type Treatment Note Visit Start Time 14:30 Visit Stop Time 14:55 Total Visit Minutes 25 Occupational Therapy Visit Comments Patient Comments Pt alert in PM. had CT scan and MRI this AM to rule out CVA as unresponsive this AM. All tests -negative. OT Pain Assessment Pain When Pain Assessed At Rest Pain Present Pain Present Denied Pain M4 OT- IP ADL's Start: 09/18/18 14:19 Freq: Status: Active Protocol: Document 09/20/18 15:11 [facility] (Rec: 09/20/18 15:20 [facility] [email or web address]) OT ADL-Toileting General Evaluation Toileting Ability Minimal Assistance Areas Needing Assistance Manage Clothing Comments OT Toileting Comments Pt heavy use of grab bar to stand and ARISTEO for brief management needs. Pt able to wipe with left hand. M5 OT- IP IADL's Start: 09/18/18 14:19 Freq: Status: Active Protocol: Document 09/18/18 14:19 [facility] (Rec: 09/18/18 14:28 [facility] [email or web address]) OT-Instrumental Activities of Daily Living Home Safety Awareness Awareness of Need for Assistance at Home Good Awareness Ability to Problem Solve Emergency Able to Problem Solve Situations M6 OT- IP Functional Cognition Start: 09/18/18 14:19 Freq: Status: Active Protocol: Document 09/20/18 15:11 [facility] (Rec: 09/20/18 15:20 [facility] [email or web address]) Cognitive Factors Limiting Selfcare Function Cognitive Ability Level of Alertness Alert Patient Orientation Name Birthday Year Situation Attention Span Ability Capable of Focused Attention Ability to Follow Commands Able to Follow One Step Commands Memory Description Short Term Impaired Safety Awareness Underestimates Need for Assistance Cognitive Comments Cognitive Assessment Comments Pt decreased initiation with movement and responses at times. M7 OT- IP Mobility and Balance Start: 09/18/18 14:19 Freq: Status: Active Protocol: Document 09/20/18 15:11 [facility] (Rec: 09/20/18 15:20 [facility] [email or web address]) OT- Bed Mobility Assessment Supine to Sit Supine to Sit Assist Moderate Assistance 1 Person Assistance Head of Bed Elevated Bedrails Scooting Scooting to Edge of Bed Maximum Assistance OT-Transfer Assessment Sit to and From Stand Sit to and from Stand Maximum Assistance 1 Person Assistance Transfers Transfer Ability Minimal Assistance Moderate Assistance 1 Person Assistance Technique Transfer Destination Chair Toilet Devices Transfer Assistive Devices Gait Belt Front Wheeled Walker Comments Mobility Comments Initially MAX A X 1 to stand and unable to get feet underneath her and needing another person to help get her to stand and after a few steps with MODA x 1 able to walk with FWW and ARISTEO x1 and another person to assist with IV pole. Pt needs education to keep her feet further apart and to shift her weight so able to move her feet. OT- Gait Assessment Gait Gait Assistance Required: Contact Guard Assist Minimum Assistance Assistive Devices Assistive Device Front Wheeled Walker OT- Balance Assessment Sitting Balance and Reactions Static Sitting Balance Ability Normal Dynamic Sitting Balance Ability Fair Standing Balance and Reactions Static Standing Balance Ability Poor M8 OT- IP Objective Assessments Start: 09/18/18 14:19 Freq: Status: Active Protocol: Document 09/18/18 14:19 [facility]GR (Rec: 09/18/18 14:28 [facility] [email or web address]) OT Gross Range of Motion Upper Extremity Range of Motion Assessment Within Functional Limits OT Strength Upper Extremity Strength Assessment Within Functional Limits Comments Strength Comments Grossly 4+/5 OT- Coordination Assessment Upper Extremity Finger to Nose Test Within Functional Limits Finger Tapping Test Within Functional Limits Comments Coordination Comments with slow responses but WFL for daily activity OT Sensation Assessment Comments Summary Comments States sensation at baseline at this time. Edema Edema Absent M9 OT- IP Assessment and Plan Start: 09/18/18 14:19 Freq: Status: Active Protocol: Document 09/20/18 15:11 [facility] (Rec: 09/20/18 15:20 [facility] [email or web address]) OT Summary Assessment and Plan Potential Rehabilitation Potential Good Analytic Complexity at Evaluation Moderate Summary OT Impairments Balance Functional Cognition Functional Mobility Grooming Dressing Toileting Bathing Toilet Transfers Shower Transfers Progress Towards Goals Slow Progress due to Medical Issues Slow Progress due to Activity Tolerance Assessment Summary Pt would benefit from skilled rehab at this time as not at baseline as prior was able to be on her own for part of the day, and AIDE independent for ADl and functional mobility needs. Goals Grooming Goal Independent Dressing Goal Independent Acds Block 1 Operator Sock Aid Toileting Goal Independent Bathing Goal Independent Toilet Transfer Goal Independent Shower Transfer Goal Independent Days to Meet Goals 9 Frequency of Treatment Frequency Of Treatment Once a Day Treatment Plan OT Treatment Plan ADL Training Functional Cognition Training Functional Mobility Therapeutic Exercises Patient/Family Education Discharge Planning Other Treatment Recommendations and Next Standing from grooming. Sit to Treatment Focus stand reps to help with functional mobility to get on and off the toilet. Discharge Recommendations OT Discharge Recommendations SNF Rehab Home Equipment Needs TBD at [facility]
--- NOTE | 2018-09-20 16:23 | PT.IPTN ---
Current Diagnoses Rhabdomyolysis (09/18/18) Physical Therapy Treatment Note M2 PT-IP Current Condition Start: 09/18/18 13:07 Freq: NEEDED Status: Active Protocol: Document 09/18/18 10:56 AB (Rec: 09/18/18 13:23 AB [id number]) Physical Therapy Current Condition Current Condition Evaluation Date 09/18/18 Treatment Diagnosis Rhabdomyolysis; PD; difficulty in Walking Onset Date 09/18/18 Precautions Other Precautions Falls M3 PT-IP Subjective Start: 09/18/18 13:07 Freq: NEEDED Status: Active Protocol: Document 09/20/18 15:50 LJ (Rec: 09/20/18 16:23 LJ [email or web address]) Subjective Physical Therapy Visit Type Type Treatment Note Visit Start Time 15:50 Visit Stop Time 16:12 Total Visit Minutes 22 Notes Pt in room sitting in chair. States she would like to get up and move. Number of FLOWERS SALESPERSON Visits 1 M4 PT-IP Mobility and Gait Start: 09/18/18 13:07 Freq: NEEDED Status: Active Protocol: Document 09/20/18 15:50 LJ (Rec: 09/20/18 16:23 LJ [email or web address]) PT-Transfer Assessment Sit to and From Stand Sit to and from Stand Moderate Assistance Use of Upper Extremities Equipment Transfer Assistive Device Gait Belt Front Wheeled Walker Orthotic/Prosthetic Devices or Brace: No Transfers Transfer Destination Chair Transfer Technique Stand Step Pivot Comments Mobility Comments Pt performed sit->stand from bedside chair with Mod VCs for technique, Mod A at posterior trunk and B UE support on chair arm rests. Pt continues to require cuing to shift weight anteriorly once standing. Gait Assessment Gait Gait Assistance Required: Contact Guard Assist Distance (Feet) 150 Able to Maintain Weight Bearing Status Yes During Gait Assistive Devices Assistive Device Front Wheeled Walker Orthotic/Prosthetic Devices or Brace: No Gait Deviations General Gait Pattern Decreased Stride Length Decreased Feet Clearance Flexed Trunk Factors Limiting Gait Function Factors Limiting Gait Function Decreased Activity Tolerance Decreased Strength Incoordination Limited Range of Motion Poor Balance Poor Safety Awareness Comments Gait Comments Pt with difficulty initiating gait. She was given cuing but she is aware of her deficit. Follows directions and has tendency to push walker too far forward when ambulating. M5 PT-IP Objective Assessments Start: 09/18/18 13:07 Freq: NEEDED Status: Active Protocol: Document 09/18/18 10:56 AB (Rec: 09/18/18 13:23 AB [id number]) Orientation Orientation/Cognition Level of Alertness Alert Orientation Name Place Situation Language Function Ability No Deficits Noted Safety Awareness Decreased Safety Awareness Memory Description Short Term Impaired Gross Range of Motion Lower Extremity ROM Assessment Within Functional Limits Strength Lower Extremity Strength Assessment Bilaterally Impaired Hip 3+/5 Knee 3+/5 Sensation Assessment Sensation Gross Sensation WNL M6 PT-IP Treatment Start: 09/18/18 13:07 Freq: NEEDED Status: Active Protocol: Document 09/20/18 15:50 LJ (Rec: 09/20/18 16:23 LJ [email or web address]) Physical Therapy Treatment Exercises Exercises Ankle Pumps Gluteal Sets Quad Sets Short Arc Quads Other Treatments Other Treatment Performed weight shifting while standing with FWW to initiate gait M7 PT-IP Assessment and Plan Start: 09/18/18 13:07 Freq: NEEDED Status: Active Protocol: Document 09/20/18 15:50 LJ (Rec: 09/20/18 16:23 LJ [email or web address]) PT Summary Assessment and Plan Potential Rehabilitation Potential Good Status of Condition at Evaluation Stable Summary Assessment Summary Pt much more alert this afternoon. Requires ModA for transfers with use of UEs. Tends to plop into chair rather than reach back. Still requires modA and cuing for erect posture and transferring body weight anteriorly over her feet to maintain stability in standing. Frequency of Treatment Frequency Of Treatment Twice a Day Treatment Plan Physical Therapy Treatment Plan Bed Mobility Training Transfer Training Gait Training Therapeutic Exercise Balance Retraining Discharge Planning Neuromuscular Re-ed Coordination Retraining Other Recommendations and Next Treatment Gait training, transfers. Focus Recommendations To Nursing Amount of Assist Needed 1 Person Assist Discharge Recommendations PT Discharge Recommendations SNF Rehab
--- NOTE | 2018-09-20 19:59 | P.PN_ITS ---
Subjective Date Patient Seen: 09/20/18 Interval history: Viviane Robin is a 77-year-old female with a past medical history significant for Parkinson's disease with dementia, depression, recurrent falls, lumbar spinal stenosis and peripheral neuropathy who presented after ground level fall with right elbow pain and weakness. Rapid response was early called this morning due to patient's somnolence and was quickly canceled as she was arousable. Patient was able to answer yes and no questions and denied headache, vision changes, shortness of breath, chest pain, abdominal pain, nausea, vomiting, fever, chills, dysuria, diarrhea or constipation. The patient was not participatory with stroke evaluation making it difficult to assess for focal neurological deficit, therefore, stroke protocol was initiated. EKG did not demonstrate any change from baseline or acute ischemic changes. CT brain without contrast and MRI stroke protocol did not demonstrate any acute ischemic event. Patient became more arousable and participatory later in the afternoon joking that she is not ?a morning person?. Exam Vital Signs (past 8 hours): - 09/20/18 12:00 09/20/18 16:10 Temperature 97.8 F 98.5 F Pulse Rate 81 87 Respiratory Rate 20 16 Blood Pressure 128/81 114/69 Pulse Oximetry 95 95 Oxygen Delivery Method Room Air Oxygen Flow Rate 0 Narrative Exam Narrative: General: Elderly female lying in bed and in no acute distress, somnolent but arousable, no discerning focal neurological deficit. HEENT: Normocephalic, atraumatic. External ears without defect. Pupils equal, round, and reactive to light. Anicteric sclerae, moist conjunctivae, and no lid lag. Neck: Supple with full range of motion. No jugular venous distension. No bruits. No lymphadenopathy or thyromegaly. Cardiovascular: Regular rate and rhythm with grade +2/6 holosystolic murmur. No rubs or gallops appreciated. Pulmonary: Clear to auscultation bilaterally without crackles, wheezes, or rhonchi. Normal respiratory effort with no use of accessory muscles. Abdomen: Soft, bowel sounds present, non-tender, non-distended. No hepatosplenomegaly or masses appreciated. Extremities: No clubbing, cyanosis, or edema. Skin: Normal temperature, turgor, and texture; no rash, ulcers, or subcutaneous nodules appreciated. Neurological: Cranial nerves grossly intact. No discerning focal neurological deficit. Very mild parkinsonian tremor and masked facies. Mild bilateral upper extremity rigidity. Psychiatric: Normal mood and affect. Alert and oriented to person, place, and time. Objective Labs Result Diagrams: 09/20/18 04:52 09/20/18 04:52 Labs: Laboratory Results - last 24 hr 09/20/18 09/20/18 09/20/18 04:52 04:52 04:52 WBC 4.3 L RBC 4.65 Hgb 13.5 Hct 39.6 MCV 85.2 MCH 29.0 MCHC 34.0 RDW 14.6 Plt Count 89 L Neut % (Auto) 65.8 Lymph % (Auto) 17.9 L [place] % (Auto) 11.4 Eos % (Auto) 4.0 Baso % (Auto) 0.9 Neut # (Auto) 2800 Lymph # (Auto) 800 L [place] # (Auto) 500 Eos # (Auto) 200 Baso # (Auto) 0 Sodium 138 Potassium 3.6 Chloride 106 Carbon Dioxide 26 BUN 24 H Creatinine 0.90 Estimated GFR > 60.0 BUN/Creatinine Ratio 26.7 H Glucose 112 H Calcium 8.4 Total Creatine Kinase 436 H D Assessment & Plan Assessment & Plan narrative: Viviane Robin is a 77-year-old female with a past medical history significant for Parkinson's disease with mild dementia, depression, recurrent falls, lumbar spinal stenosis and peripheral neuropathy who presented after ground level fall with right elbow pain and weakness. 1. Decreased level of consciousness, not present on admission. Resolved. -Rapid response was called this morning due to patient's somnolence and quickly canceled as she was arousable. -Patient not participatory with stroke evaluation making it difficult to assess for focal neurological deficit therefore stroke protocol was initiated. -EKG did not demonstrate any change from baseline or acute ischemic changes. -CT brain without contrast did not demonstrate any acute intracranial abnormalities. Patient received aspirin 325 mg x1. -MR stroke protocol demonstrated mild to moderate microvascular atherosclerotic change in the deep white matter of each hemispheric but no sign of acute or subacute ischemic injury, chronic stroke, mass or intracranial hemorrhage is found. No significant stenosis. -Patient later was more awake, alert and participatort, joking that she is ?not a morning person. 2. Acute rhabdomyolysis with dehydration after ground level fall, present on admission. Resolving. -Initial total CK 2544. Trending down and will continue to monitor closely. -Continue IV fluid hydration with normal saline at 50 mL/hr. Encourage p.o. fluid intake. 3. Acute kidney injury, on chronic kidney disease stage 3, present on admission. Acute kidney injury resolved. -Secondary to prerenal azotemia and rhabdomyolysis. -Initial creatinine 2.10. Baseline creatinine between 1.2-1.4. Creatinine t rended down to normal at 0.90. -Continued IV fluid hydration as above. -Avoid nephrotoxic agents. -Continue to monitor renal function. 4. Acute on chronic thrombocytopenia, not present on admission. Stable. -Patient's platelet counts tend to run in low 100 range on historical labs. -Platelets 170 on admission but trended down and now trending back up/ -Likely acute component secondary to hemodilution and thought to be acute infection. -Discontinued heparin for DVT prophylaxis. -Continue to monitor platelets closely. 5. Parkinson's disease with Parkinson's dementia, chronic, present on admission. Stable. -Continue carbidopa levodopa IR 50/200 mg 3 times a day and carbidopa levodopa ER 50/200 mg once daily at bedtime. -Continue rivastigmine tartrate twice daily. -Consult PT and OT due to recurrent falls. -Consulted ST for swallow evaluation and place patient on a dysphagia mechanical with thins. 6. Urinary incontinence and overactive bladder, chronic, present on admission. Stable. -Continue trospium 20 mg twice daily. 7. Depression, chronic, present on admission. Stable. -Patient inquired as to how to better control her depression for which counselingis recommended in addition to medical therapy. -Continue fluoxetine 60 mg daily. 8. Acute urinary tract infection ruled out. -Urinalysis appeared grossly infected but grew 3+ colonies banking representative of contaminant. Discontinued ceftriaxone. Disposition: [facility]. Quality VTE Deep Vein Thrombosis/Pulmonary Embolism Present on Admission: No
[2018-09-20] MEDS: CARBIDOPA-LEVODOPA ER 50/200 TABLET 1 EACH PO (22:28)
[2018-09-21 00:49] VITALS: O2SAT 96
--- NOTE | 2018-09-21 02:27 | PC.NURSE ---
Shift note: Received pt from evening shift. IV site had been compromised during pt's shower and evening shift nurse had been unable to restart site. Confirmed with [employer]PECTING SUPERVISOR that he wanted IV access and to continue IV fluids. Was able to restart IV site in left forearm on 2nd attempt. Pt alert to self and aware of why she went to the hospital but is adamant that she is not currently at [facility] and that she is at home. Attempted to reorient pt but was unsuccessful. Pt seemed confused by IV placement but allowed it to be placed and has not interfered with the site. Pt is a high fall risk d/t parkinsons, forgetful of own limitations, and impulsivity. Bed alarm activated and will minimize interruptions to sleep.
[2018-09-21 05:40] VITALS: BP 173/89; PULSE 75; RESP 16; TEMP 36.4; O2SAT 95
[2018-09-21 08:00] VITALS: BP 159/91; PULSE 75; RESP 20; TEMP 36.4; O2SAT 94
[2018-09-21] MEDS: FLUoxetine 20 MG CAPSULE 60 MG PO (08:26)
[2018-09-21] MEDS: Rivastigmine Tartrate 1 EACH PO (08:27)
[2018-09-21 09:29] LABS: Creatine Kinase 209 U/L (30-135)
[2018-09-21 09:31] LABS: Blood Urea Nitrogen 24 mg/dL (7-17); Calcium 9.1 mg/dL (8.4-10.2); Carbon Dioxide 24 mmol/L (22-32); Chloride 103 mmol/L (98-107); Estimated Glomerular Filt Rate 53.5 mL/min (>60); Glucose 194 mg/dL (80-110); HEMOLYSIS < 15 (0-50); Magnesium 1.9 mg/dL (1.6-2.3); Potassium 3.9 mmol/L (3.4-5.1); Sodium 137 mmol/L (137-145)
--- NOTE | 2018-09-21 09:44 | PM.DS.1 ---
History of Present Illness Chief complaint: GLF, weakness Narrative: Written by myself Dr. Garcia: Viivane Robin is a 77-year-old female with a past medical history significant for Parkinson's disease with dementia, depression, recurrent falls, lumbar spinal stenosis and peripheral neuropathy who presented after ground level fall with right elbow pain and weakness. The patient reports it is she has fallen twice in the last 2 days. Two days ago she fell after she tripped on her feet. She then climbed into bed and was unable to get up due to positioning. She laid there for approximately 14 hours until her caregiver arrived and found her. She then fell again last night when she bent over to product picker a piece of paper. She believe she fell last night due to weakness. She endorses increased urinary frequency, chronic constipation and right arm soreness. She denies headache, chest pain, shortness of breath, abdominal pain, nausea, vomiting, fever, chills, dysuria, or diarrhea. She reports a good appetite, however, she has had poor fluid intake. Due to her Parkinson's disease, lumbar spinal stenosis and peripheral neuropathy patient has recurrent falls and is quite unsafe at home. There are several calls made to EMS weekly due to lift assist. The patient's family has tried to place her in an assisted-living in the past but the patient has reportedly been reluctant. When I inquired as to why she does not have more help at home she reports she is unable to afford it. She currently has a rv body mechanic that comes 5 times per week from 11:00 a.m. to 2:00 p.m. and a caregiver who comes M/W/F/Sat/Sun from 7:00 p.m. to 11:00 p.m.. She has been seen most recently by Dr. Veronique Garcia. Discharge Providers Date of admission: 09/18/18 01:07 Discharge Date: 09/21/18 Primary care physician: Yfn Arreaga MD Consults: 09/18/18 00:50 Consult to Field Services Manager Stat Comment: Patient inpatient under Dr. Bhupinder burnham potentialana 09/18/18 00:55 Consult to Physician Routine Comment: Consulting Provider: Junior Roe Reason for consultation: Admission Has provider been notified: Yes 09/18/18 07:34 Consult to Field Services Manager Routine Comment: TIMBER POISONER for living arrangements and unsafe at home aurelia 09/18/18 07:35 Consult to Occupational Therapy Evaluate & Treat Comment: Physician Instructions: Evaluate and treat Consult to Physical Therapy Evaluate & Treat Comment: Physician Instructions: Evaluate and Treat 09/19/18 08:49 Consult to Speech Therapy Evaluate & Treat Comment: santana bella Physician Instructions: Evaluate and treat Discharge provider: Connie Garcia DO Summary Discharge Diagnosis: 1. Acute rhabdomyolysis with dehydration after ground level fall, secondary to generalized weakness and physical deconditioning, present on admission. Resolved. 2. Decreased level of consciousness, likely secondary to parkinsonian disease, not present on admission. Resolved. 3. Acute kidney injury, on chronic kidney disease stage II, present on admission. Acute kidney injury resolved. 4. Acute on chronic thrombocytopenia, not present on admission. Resolving. 5. Parkinson's disease with Parkinson's dementia, chronic, present on admission. Stable. 6. Urinary incontinence and overactive bladder, chronic, present on admission. Stable. 7. Depression, chronic, present on admission. Stable. 8. Acute urinary tract infection ruled out. Hospital Course: Viviane Robin is a 77-year-old female with a past medical history significant for Parkinson's disease with mild dementia, depression, recurrent falls, lumbar spinal stenosis and peripheral neuropathy who presented after ground level fall with right elbow pain and weakness. 1. Acute rhabdomyolysis with dehydration after ground level fall, secondary to generalized weakness and physical deconditioning, present on admission. Resolved. -Initial total CK 2544. Trended down now almost normalized at 209 on discharge. -Continue IV fluid hydration with normal saline until adequately hydrated. Encouraged p.o. fluid intake. 2. Decreased level of consciousness, likely secondary to parkinsonian disease, not present on admission. Resolved. -Rapid response was called on 09/20 due to patient's somnolence and quickly canceled as she was arousable and VSS. -Patient not participatory with stroke evaluation making it difficult to assess for focal neurological deficit, therefore, stroke protocol was initiated. -EKG did not demonstrate any change from baseline or acute ischemic changes. -CT brain without contrast did not demonstrate any acute intracranial abnormalities. Patient received aspirin 325 mg x1. -MR stroke protocol demonstrated mild to moderate microvascular atherosclerotic change in the deep white matter of each hemispheric but no sign of acute or subacute ischemic injury, chronic stroke, mass or intracranial hemorrhage is found. No significant stenosis. -Later in the day on 09/20 the patient was more awake, alert and participatory, joking that she is ?not a morning person. 3. Acute kidney injury, on chronic kidney disease stage II, present on admission. Acute kidney injury resolved. -Secondary to prerenal azotemia and rhabdomyolysis. -Initial creatinine 2.10. Baseline creatinine between 1.2-1.4. Creatinine trended down to normal at 0.90 with GFR 53.5 and more likely stage II CKD rather than stage III. -Continued IV fluid hydration as above. -Avoided nephrotoxic agents. -Continued to monitor renal function. 4. Acute on chronic thrombocytopenia, not present on admission. Resolving. -Patient's platelet counts tend to run in low 100 range on historical labs. -Platelets 170 on admission but trended down and now trending back up/ -Likely acute component secondary to hemodilution and thought to be acute infection later determined not to be UTI. -Discontinued heparin for DVT prophylaxis. -Continued to monitor platelets closely. 5. Parkinson's disease with Parkinson's dementia, chronic, present on admission. Stable. -Patient reportedly has intermittent/occasional hallucinations related to Parkinson's dementia and will reports she has 30+ cats among other things but overall has no significant behavioral disturbance. -Continued carbidopa levodopa IR 50/200 mg 3 times a day and carbidopa levodopa ER 50/200 mg once daily at bedtime. -Continued rivastigmine tartrate twice daily. -Continued PT and OT evaluation and treatment. -Consulted ST for swallow evaluation and patient was placed on a dysphagia mechanical with thin liquids for parkinsons related dysphagia. 6. Urinary incontinence and overactive bladder, chronic, present on admission. Stable. -Continued trospium 20 mg twice daily. 7. Depression, chronic, present on admission. Stable. -Patient inquired as to how to better control her depression for which counseling is recommended in addition to medical therapy. -Continued fluoxetine 60 mg daily. 8. Acute urinary tract infection ruled out. -Urinalysis appeared grossly infected but grew 3+ colonies outside medical sales representative of contaminant. Discontinued ceftriaxone. Status at Discharge Functional status at discharge: uses cane/walker Overall status at discharge: patient is not back to baseline Exam Vital Signs (past 8 hours): - 09/21/18 05:40 09/21/18 08:00 Temperature 97.5 F L 97.6 F Pulse Rate 75 75 Respiratory Rate 16 20 Blood Pressure 173/89 H 159/91 H Pulse Oximetry 95 94 Oxygen Delivery Method Room Air Oxygen Flow Rate 0 Narrative Exam Narrative: General: Elderly female lying in bed and in no acute distress, well-developed, well-nourished, mild and subtle confusion but appropriately interactive. HEENT: Normocephalic, atraumatic. External ears without defect. Pupils equal, round, and reactive to light. Anicteric sclerae, moist conjunctivae, and no lid lag. Oropharynx free of erythema and cobble stoning with moist mucosa. Neck: Supple with full range of motion. No jugular venous distension. No bruits. No lymphadenopathy or thyromegaly. Cardiovascular: Regular rate and rhythm with grade +2/6 holosystolic murmur. No rubs or gallops appreciated. Pulmonary: Clear to auscultation bilaterally without crackles, wheezes, or rhonchi. Normal respiratory effort with no use of accessory muscles. Abdomen: Soft, bowel sounds present, non-tender, non-distended. No hepatosplenomegaly or masses appreciated. Extremities: No clubbing, cyanosis, or edema. Stasis dermatitis of bilateral lower extremities. Skin: Normal temperature, turgor, and texture; no rash, ulcers, or subcutaneous nodules appreciated. Neurological: Cranial nerves grossly intact. Very mild parkinsonian tremor and masked facies. Mild bilateral upper extremity rigidity. Psychiatric: Normal mood and affect. Alert and oriented to person, place, and time. Mild and subtle confusion. Objective Labs Result Diagrams: 09/20/18 04:52 09/21/18 09:06 Labs: Laboratory Results - last 24 hr 09/21/18 09/21/18 09:06 09:06 Sodium 137 Potassium 3.9 Chloride 103 Carbon Dioxide 24 BUN 24 H Creatinine 1.00 Estimated GFR 53.5 L BUN/Creatinine Ratio 24.0 H Glucose 194 H Calcium 9.1 Magnesium 1.9 Total Creatine Kinase 209 H D Discharge Plan Discharge Plan Patient Disposition: SNF Transfer to: [facility] Under care of provider: Dr. Arshad Transportation: Facility vehicle I certify the postop hospital correction care is medically necessary on a continuing basis for any conditions for which he/ she received care during this hospitalization.: Yes The receiving facility has agreed to accept transfer and provide medical treatment.: Yes Discharge Med Rec/Prescriptions Prescriptions: Continued carbidopa-levodopa 25-100 mg tablet 2 tab PO TID Qty: 180 RF: 2 carbidopa-levodopa 50-200 mg tablet extended release 1 tab PO BEDTIME RF: 0 trospium 20 mg tablet 20 mg PO BID RF: 0 melatonin 10 mg capsule 10 mg PO BEDTIME PRN (Reason: sleep) Qty: 30 RF: 0 rivastigmine tartrate 6 mg capsule 1 tab PO BID RF: 0 fluoxetine 20 mg capsule 60 mg PO DAILY RF: 0 Follow up/Referrals: Yfn Arreaga MD [Primary Care Provider] - Discharge Health Status Brief summary of current health status: 77-year-old female with Parkinson's disease and dementia who presented after ground level fall due to generalized weakness with rhabdomyolysis and acute kidney injury now resolved. Patient needs continued physical and occupational rehabilitation. Multidrug resistant organism: No MDRO Provider Discharge Instructions Diet: Diet as Tolerated Liquid consistency: Normal/Thin Diet comment: Dysphagia mechanical, thins, meds in carrier Activity: Activity as tolerated with FWW and PT/OT Special [facility] Rehab type: Physical therapy and Occupational therapy Discharge Data Primary Care Provider: Yfn Arreaga Attending Provider: Junior Roe Admit Date/Time: 09/18/18 01:07 Quality VTE Deep Vein Thrombosis/Pulmonary Embolism Present on Admission: No
--- NOTE | 2018-09-21 10:10 | OT.IP.TRT ---
Current Diagnoses Rhabdomyolysis (09/18/18) Occupational Therapy Treatment Note M2 OT-IP Current Condition Start: 09/18/18 14:19 Freq: Status: Active Protocol: Document 09/18/18 14:19 CGR (Rec: 09/18/18 14:28 CGR [id number]) Occupational Therapy Current Condition Current Condition Evaluation Date 09/18/18 Treatment Diagnosis weakness and GLF M3 OT- IP Subjective and Pain Start: 09/18/18 14:19 Freq: Status: Active Protocol: Document 09/21/18 09:51 [facility] (Rec: 09/21/18 10:10 [facility] [id number]) OT- Subjective Occupational Therapy Visit Type Type Treatment Note Visit Start Time 09:08 Visit Stop Time 09:31 Total Visit Minutes 23 Occupational Therapy Visit Comments Patient Comments Pt states tired but willing to do therapy. Per BUTTON AND BUCKLE MAKER took MAX A x2 to stand pt today. OT Pain Assessment Pain When Pain Assessed At Rest Pain Present Pain Present Denied Pain M7 OT- IP Mobility and Balance Start: 09/18/18 14:19 Freq: Status: Active Protocol: Document 09/21/18 09:51 [facility] (Rec: 09/21/18 10:10 [facility] [id number]) OT-Transfer Assessment Sit to and From Stand Sit to and from Stand Moderate Assistance Maximum Assistance 1 Person Assistance Comments Mobility Comments Worked on sit to stand, educated pt on trying to activate her trunk to assist with weight shifting versus just pushing her back against the recliner to scoot forwards . Educated pt to be aware to try to activate her trunk extensors by retracting her scapulas back together, as pt tends to heavily rely on her arms and legs to stand versus actively using her trunk. In addition pt tends to lean back on her heels and has a very flexed posture. OT- Balance Assessment Sitting Balance and Reactions Static Sitting Balance Ability Good Dynamic Sitting Balance Ability Fair Standing Balance and Reactions Static Standing Balance Ability Poor M8 OT- IP Objective Assessments Start: 09/18/18 14:19 Freq: Status: Active Protocol: Document 09/18/18 14:19 CGR (Rec: 09/18/18 14:28 CGR [id number]) OT Gross Range of Motion Upper Extremity Range of Motion Assessment Within Functional Limits OT Strength Upper Extremity Strength Assessment Within Functional Limits Comments Strength Comments Grossly 4+/5 OT- Coordination Assessment Upper Extremity Finger to Nose Test Within Functional Limits Finger Tapping Test Within Functional Limits Comments Coordination Comments with slow responses but WFL for daily activity OT Sensation Assessment Comments Summary Comments States sensation at baseline at this time. Edema Edema Absent M9 OT- IP Assessment and Plan Start: 09/18/18 14:19 Freq: Status: Active Protocol: Document 09/21/18 09:51 [facility] (Rec: 09/21/18 10:10 [facility] [id number]) OT Summary Assessment and Plan Potential Rehabilitation Potential Good Analytic Complexity at Evaluation Moderate Summary OT Impairments Balance Functional Cognition Functional Mobility Grooming Dressing Toileting Bathing Toilet Transfers Shower Transfers Progress Towards Goals Slow Progress due to Medical Issues Slow Progress due to Activity Tolerance Assessment Summary Pt going to skilled rehab today. Discharge Recommendations OT Discharge Recommendations SNF Rehab Home Equipment Needs TBD at SNF
[2018-09-21] MEDS: CARBIDOPA-LEVODOPA 25/100 TABLET 2 EACH PO (10:27)
--- NOTE | 2018-09-21 11:20 | PT.IPTN ---
Current Diagnoses Rhabdomyolysis (09/18/18) Physical Therapy Treatment Note M2 PT-IP Current Condition Start: 09/18/18 13:07 Freq: NEEDED Status: Active Protocol: Document 09/18/18 10:56 AB (Rec: 09/18/18 13:23 AB [id number]) Physical Therapy Current Condition Current Condition Evaluation Date 09/18/18 Treatment Diagnosis Rhabdomyolysis; PD; difficulty in Walking Onset Date 09/18/18 Precautions Other Precautions Falls M3 PT-IP Subjective Start: 09/18/18 13:07 Freq: NEEDED Status: Active Protocol: Document 09/21/18 10:25 [facility]B (Rec: 09/21/18 11:19 [facility]B [id number]) Subjective Physical Therapy Visit Type Type Treatment Note Visit Start Time 10:25 Visit Stop Time 10:45 Total Visit Minutes 20 Number of PRESSURE WASHER Visits 2 Physical Therapy Visit Comments Patient Comments Pt in chair needing to use BSC . M4 PT-IP Mobility and Gait Start: 09/18/18 13:07 Freq: NEEDED Status: Active Protocol: Document 09/21/18 10:25 [facility]B (Rec: 09/21/18 11:19 CLB [id number]) PT-Transfer Assessment Sit to and From Stand Sit to and from Stand Moderate Assistance Use of Upper Extremities Equipment Transfer Assistive Device Gait Belt Front Wheeled Walker Orthotic/Prosthetic Devices or Brace: No Transfers Transfer Destination Chair Bedside Commode Transfer Technique Stand Step Pivot Comments Mobility Comments Pt requires cues for sequencing hand placement and to bring hips anterior to stand tall. Pt with posterior lean during stand pivot transfer to BSC. M5 PT-IP Objective Assessments Start: 09/18/18 13:07 Freq: NEEDED Status: Active Protocol: Document 09/18/18 10:56 AB (Rec: 09/18/18 13:23 AB [id number]) Orientation Orientation/Cognition Level of Alertness Alert Orientation Name Place Situation Language Function Ability No Deficits Noted Safety Awareness Decreased Safety Awareness Memory Description Short Term Impaired Gross Range of Motion Lower Extremity ROM Assessment Within Functional Limits Strength Lower Extremity Strength Assessment Bilaterally Impaired Hip 3+/5 Knee 3+/5 Sensation Assessment Sensation Gross Sensation WNL M6 PT-IP Treatment Start: 09/18/18 13:07 Freq: NEEDED Status: Active Protocol: Document 09/21/18 11:19 CLB (Rec: 09/21/18 11:20 CLB [id number]) Physical Therapy Treatment Exercises Exercises Gluteal Sets Seated Knee Flexion/Extension Other Treatments Other Treatment Performed seated ginger M7 PT-IP Assessment and Plan Start: 09/18/18 13:07 Freq: NEEDED Status: Active Protocol: Document 09/21/18 10:25 CLB (Rec: 09/21/18 11:19 CLB [id number]) PT Summary Assessment and Plan Summary Assessment Summary Pt required Mod A for stand pivot transfer to [facility] due to posterior lean and pt having difficulty weight shifting hips anteriorly during transfer. Goals Bed Mobility Goal Standby Assistance Transfer Goal Standby Assistance Front Wheeled Walker Gait Goal Standby Assistance Front Wheel Walker Gait Distance 150 Days to Meet Goals 5 Frequency of Treatment Frequency Of Treatment Twice a Day Treatment Plan Physical Therapy Treatment Plan Bed Mobility Training Transfer Training Gait Training Therapeutic Exercise Balance Retraining Discharge Planning Neuromuscular Re-ed Coordination Retraining Other Recommendations and Next Treatment Gait training, transfers. Focus Recommendations To Nursing Amount of Assist Needed 1 Person Assist 2 Person Assist Discharge Recommendations PT Discharge Recommendations SNF Rehab
--- NOTE | 2018-09-21 12:15 | CM.DANOTE ---
DCP/continued: Received notification from Dr. Garcia that patient okay to transfer to SNF today. First SNF choice is [facility] and they have accepted. Placed call to October at [facility] and asked ELTON/Parvin to coordinate arrangements. Met with patient and placed call to daughter/Ronelle informing them of the above. Both aware and agreeable. RN given number to call report. P: [facility] today. HENRIETTA Charlton
--- NOTE | 2018-09-21 12:19 | ST.IPTN ---
Care Team Visit Care Team Role Provider Type Yfn Arreaga MD Primary Care Provider Physician Address: [address] [place] [address], [id number] Paul Suarez DO Emergency Provider Physician Address: [address] [place] [address], [id number] Junior Roe MD Admit Provider Physician Attending Provider Other Providers Address: [address] [place] [address], [id number] SOLAR BUSINESS DEVELOPER Treatment Note SOLAR BUSINESS DEVELOPER Treatment Note Start: 09/20/18 10:26 Freq: Status: Active Protocol: Document 09/21/18 12:01 TRAM (Rec: 09/21/18 12:18 TRAM [id number]) Speech Pathology Treatment Note Session Time Visit Start Time 09:50 Visit Stop Time 10:15 Total Visit Minutes 25 Setting Treatment Setting Acute Care Visit Type Note Type Treatment Note Next Note Type Next Note Type Treatment Note General Information General Information Viviane Robin is a 77-year-old female with a past medical history significant for Parkinson's disease with dementia, depression, recurrent falls, lumbar spinal stenosis and peripheral neuropathy who presented after ground level fall with right elbow pain and weakness. The patient reports it is she has fallen twice in the last 2 days. Two days ago she fell after she tripped on her feet. She then climbed into bed and was unable to get up due to positioning. She laid there for approximately 14 hours until her caregiver arrived and found her. She then fell again last night when she bent over to citrus picker a piece of paper. She believe she fell last night due to weakness. She endorses increased urinary frequency, chronic constipation and right arm soreness. She denies headache, chest pain, shortness of breath, abdominal pain, nausea, vomiting, fever , chills, dysuria, or diarrhea . Pt reported that she frequently chokes on her solid foods, especially if the food is not cut into small pieces. She reported no difficulty with thin liquids. Subjective Observations/Patient Presentation Pt was sitting up in chair with daughter present and reported difficulty swallowing large bites of food and a tendency to eat too fast, which also gave her trouble. She appreciated help from CNAs in cutting her food into manageable bites. When asked how her ability to communicate has been, the pt deferred to her daughter, who reported the pt's voice has been getting quieter which makes it often difficult to understand her, particularly on the phone. Chief Complaint(s) Swallowing Additional Areas of Concern Reduced speech intelligibility d/t low loudness. Objective Industrial Engineering Professor Goals Pt will safely tolerate least- restictive diet without s/sx aspiration to meet hydration and nutritional needs. Treatment Activities The pt consumed several bites of diced fruit and single and consecutive sips of water from straw, which is her preference, without overt s/sx of aspiration. Oral clearance was complete, although the pt felt some residue in her teeth, which was not visible to SOLAR BUSINESS DEVELOPER and which cleared with liquid wash. Education was provided orally and in writing RE common effects of Parkinson's disease on swallow and speech intelligibility, as well as treatment available through Speech Therapy. The pt expressed concerns that it may be too late for me and was informed that the SOLAR BUSINESS DEVELOPER at [facility] would be communicated with so she could provide further education and treatment to increase/maintain swallow function as well as address speech intelligiblity. This was done after the session. The pt and daughter verbalized understanding and appreciation. Assessment Patient Response to Treatment Good Rehab Potential Good Impairments Identified Dysarthria Dysphagia Speech Intelligibility Progress Towards Goals Good Progress Assessment of Improvement The pt is tolerating mechanical soft diet and thin liquids from straw with set-up assistance including cutting solids into small bite-sized pieces. Recommend continuing diet and continuing Speech Therapy at targeting increasing/maintaining swallow function and safety and increasing vocal loudness to improve speech intelligibility . Reviewed with Patient Goals Progress Being Made Home Exercise Program Patient/Caregiver Understanding Good Plan Comment Continue ST at Therapeutic Contents Client Education Intelligibility Swallowing/Feeding Provided Patient/Caregiver Instruction Plan of Care Questions/Concerns Therapy Recommendations Continue with Current Program
== END 2018-09-21 13:00 | DRG 558 ==
LOC: ED 09-18 00:54 → AC 09-18 01:07
PROVIDERS: Internal Medicine; Admitting Provider Internal Medicine; Emergency Provider Emergency Medicine; PCP Student in an Organized Health Care Education/Training Program; Visit Provider Internal Medicine
DX: M62.82 Rhabdomyolysis (principal); N17.9 Acute kidney failure, unspecified; E86.0 Dehydration; G20 Parkinson's disease; F02.80 Dementia in other diseases classified elsewhere, unspecified severity, without behavioral disturbance, psychotic disturbance, mood disturbance, and anxiety; M25.521 Pain in right elbow; F32.9 Major depressive disorder, single episode, unspecified; D69.6 Thrombocytopenia, unspecified; R40.0 Somnolence; W18.30XA Fall on same level, unspecified, initial encounter; Z91.81 History of falling; Z87.891 Personal history of nicotine dependence; R33.9 Retention of urine, unspecified
CPT/HCPCS: 36415; 36591; 70450; 70548; 70553; 80048; 80053; 81001; 82550; 83690; 83735; 84145; 84484; 85025; 85610; 85730; 87086; 92526; 92610; 93005; 97110; 97116; 97162; 97166; 97530; 97535; 99283; 99285; J0696; J1644

== ENCOUNTER → 2018-09-22 08:32 | Outpatient (REF) | payer MEDICARE, SELFPAY ==
[2018-09-18 02:01] VITALS: BMI 27.9
[2018-09-22 09:09] LABS: Add Manual Diff / Slide Review NO; Basophils Absolute Auto 0 /uL (0-100); Basophils Percent Auto 0.6 % (0-2); Eosinophils Absolute Auto 200 /uL (0-450); Eosinophils Percent Auto 4.7 % (2-4); Hematocrit 42.9 % (36-46); Hemoglobin 14.1 g/dL (12.0-16.0); Lymphocytes Absolute Auto 900 /uL (1100-4500); Lymphocytes Percent Auto 19.2 % (25-40); Mean Corpuscular Hemoglobin 28.7 PG (26-34); Mean Corpuscular Volume 86.9 fL (80-100); Monocytes Absolute Auto 500 /uL (0-900); Monocytes Percent Auto 10.1 % (3-14); Neutrophils Absolute Auto 3000 /uL (1500-7000); Neutrophils Percent Auto 65.4 % (50-75); Platelet Count 115 X10^3/uL (150-400); Red Blood Cell Count 4.94 X10^6/uL (4.0-5.2); White Blood Cell Count 4.6 X10^3/uL (4.5-11.0)
[2018-09-22 09:13] LABS: BUN Creatinine Ratio 28.2 (6-22); Blood Urea Nitrogen 31 mg/dL (7-17); Calcium 8.8 mg/dL (8.4-10.2); Carbon Dioxide 27 mmol/L (22-32); Chloride 104 mmol/L (98-107); Estimated Glomerular Filt Rate 47.9 mL/min (>60); Glucose 76 mg/dL (80-110); HEMOLYSIS < 15 (0-50); Potassium 3.9 mmol/L (3.4-5.1); Sodium 138 mmol/L (137-145)
== END ==
LOC: LAB 08:32
PROVIDERS: PCP Student in an Organized Health Care Education/Training Program; Visit Provider Internal Medicine
DX: M62.82 Rhabdomyolysis (principal)
CPT/HCPCS: 36415; 80048; 85025

== ENCOUNTER 2018-09-24 02:53 | Emergency (ER) | payer MEDICARE, SELFPAY ==
[2018-09-18 02:01] VITALS: BMI 27.9
[2018-09-24 03:00] VITALS: BP 144/88; PULSE 86; RESP 18; TEMP 36.4; O2SAT 98
--- NOTE | 2018-09-24 03:41 | ED_ITS ---
HPI - Wound/Laceration General Chief Complaint: Wound/Laceration Stated Complaint: GLF Time Seen by Provider: 09/24/18 02:54 Source: patient and EMS Mode of arrival: EMS Limitations: no limitations History of Present Illness HPI narrative: A 77-year-old female nonsmoker with history of Parkinson's and frequent falls arrives by EMS for evaluation of a fall just prior to arrival. Patient states she hit her head but denies loss of consciousness, has no blurred vision, significant headache or vomiting. She has full recall of the event. She takes no blood thinners and denies the use of alcohol or street drugs. She has a skin tear on the dorsum of her left wrist as well as 1 on her right forearm. Onset (ago): minute(s) Extremity Location: Left: wrist and Right: forearm Place: home Patient tetanus UTD: Yes Context: accidental Associated symptoms: none Treatments prior to arrival: bandage Related Data Home Medications Medication Instructions Recorded Confirmed carbidopa ER 50 mg-levodopa 200 mg 1 tab PO BEDTIME tab 06/26/18 09/18/18 tablet,extended release trospium 20 mg tablet 20 mg PO BID 06/26/18 09/18/18 fluoxetine 60 mg PO DAILY 09/18/18 09/18/18 rivastigmine tartrate 1 tab PO BID 09/18/18 09/18/18 Previous Rx's Medication Instructions Recorded melatonin 10 mg capsule 10 mg PO BEDTIME PRN #30 cap 06/26/18 carbidopa 25 mg-levodopa 100 mg 2 tab PO TID #180 tab 07/29/18 tablet Allergies Allergy/AdvReac Type Severity Reaction Status Date / Time Sulfa (Sulfonamide Allergy Severe HIVES Verified 09/17/18 22:46 Antibiotics) [SULFA (SULFONAMIDE ANTIBIOTICS)] vancomycin [VANCOMYCIN] Allergy Severe RASH AND Verified 09/17/18 22:46 BLISTERS codeine [CODEINE] Allergy Mild HEADACHE,VOMITING,MOOD Verified 09/17/18 22:46 CHANGES hydrocodone [HYDROCODONE] Allergy Mild NAUSEA,ITCHING,MOOD Verified 09/17/18 22:46 CHANGES Review of Systems Constitutional Denies chills, Denies fever(s), Denies lethargy and Denies weakness Eyes Denies change in vision, Denies eye discharge, Denies irritation and Denies loss of vision ENT Ears, Nose, Mouth, and Throat: Denies change in voice, Denies neck pain and Denies sore throat Cardiovascular Denies chest pain, Denies irregular heart rhythm, Denies lightheadedness, Denies palpitations, Denies dyspnea, Denies dyspnea on exertion and Denies orthopnea Respiratory Denies cough, Denies dyspnea, Denies dyspnea on exertion and Denies wheezing Gastrointestinal Gastrointestinal: Denies abdominal pain, Denies change in bowel habits, Denies diarrhea, Denies nausea and Denies vomiting Genitourinary Denies hematuria, Denies flank pain, Denies urinary incontinence and Denies urinary urgency Musculoskeletal Denies neck pain Integumentary/Breasts Denies pruritus, Denies erythema, Denies rash and Reports wounds Neurologic Denies confusion, Denies loss of vision and Denies weakness Psychiatric Denies anxiety, Denies confusion, Denies depression, Denies homicidal ideation and Denies suicidal ideation Endocrine Denies palpitations Hematologic/Lymphatic Denies easy bruising Allergic/Immunologic Denies wheezing PFSH Medical History Dementia with Parkinsonism (Acute) Arthritis (Chronic) Hypertension (Chronic) Lumbar spinal stenosis (Chronic) Parkinson's disease (Chronic) Peripheral neuropathy (Chronic) Urinary incontinence (Chronic) Fall from ground level (Resolved 04/2014) Hemopneumothorax (Resolved 04/2014) Menopause (Resolved ~1983) Respiratory failure (Resolved 04/2014) Rib fractures (Resolved 04/2014) Surgical History History of bladder surgery (Resolved) History of hip replacement (Resolved 2000) History of left cataract surgery (Resolved 12/11/15) History of oophorectomy (Resolved) History of right cataract surgery (Resolved 12/25/15) History of tonsillectomy (Resolved) History of tracheostomy (Resolved 04/2014) Status post appendectomy (Resolved) Status post cholecystectomy (Resolved 2000) Status post hysterectomy (Resolved 1967) Status post laminectomy (Resolved 2010) Family History (Updated 09/18/18 @ 11:23 by Connie Garcia DO) Mother Breast cancer, female Colorectal cancer Cancer Father Esophageal cancer Alcoholism Parkinson disease Social History household members: none Smoking Status: Former smoker alcohol intake: current substance use type: does not use Family History Mother Breast cancer, female Colorectal cancer Cancer Father Esophageal cancer Alcoholism Parkinson disease Social History household members: none Smoking Status: Former smoker alcohol intake: current substance use type: does not use Exam Narrative Exam Narrative: GENERAL: T pleasant 77-year-old female is awake and alert. GCS 15 HEAD: Small contusion of R parietal. No depressed skull fracture. No temporal or scalp tenderness. EYES: Pupils equal round and reactive. Extraocular motions intact. No scleral icterus. No injection or drainage. ENT: Nose without bleeding, purulent drainage or septal hematoma. Throat without erythema, tonsillar hypertrophy or exudate. Uvula midline. Airway patent. NECK: Trachea midline. No JVD or lymphadenopathy. Supple, nontender, no meningeal signs. CARDIOVASCULAR: Regular rate and rhythm without murmurs, gallops, or rubs. RESPIRATORY: Clear to auscultation. Breath sounds equal bilaterally. No wheezes, rales, or rhonchi. GASTROINTESTINAL: Abdomen soft, non-tender, nondistended. No hepato- splenomegaly, or palpable masses. No guarding. EXTREMITIES: No clubbing, cyanosis, or edema. No joint tenderness, effusion, or edema noted. BACK: Nontender without deformity or crepitance. No flank tenderness. NEURO: AOx3. SKIN: Large skin tear on the dorsum left wrist, 10 cm in total. Another more superficial skin tear on lateral aspect of right mid forearm No rash or erythema. Initial Vital Signs Initial Vital Signs: Vital Signs Temperature 97.5 F L 09/24/18 03:00 Pulse Rate 86 09/24/18 03:00 Respiratory Rate 18 09/24/18 03:00 Blood Pressure 144/88 H 09/24/18 03:00 Pulse Oximetry 98 09/24/18 03:00 Procedures Laceration Repair Laceration 1: Site: upper extremity Side (If applicable): left Size (cm): 10 Description: flap Depth: simple, single layer Local Anesthetic: lidocaine 1% and with bicarb Amount of anesthesia used (mL): 4 Pre-repair: wound explored Skin layer closed with: nylon Size (cm): 5-0 Number of sutures: 9 Technique: simple, interrupted Course Orders Ordered: ED Orders 09/24/18 04:31 CT head/brain wo con Stat Vital Signs - 8 hr 09/24/18 03:00 09/24/18 04:15 Temperature 97.5 F L Pulse Rate 86 78 Respiratory Rate 18 16 Blood Pressure 144/88 H Blood Pressure [Left Arm] 141/74 H Pulse Oximetry 98 95 MDM - Wound/Laceration Imaging Data CT scan - head: Radiologist's impression: NAP Discharge Plan Departure Patient Disposition: Home Clinical Impression: Skin tear Activity Restrictions/Additional Instructions: Please keep the wound clean and dry to the best of your ability. Please monitor for signs of infection such as redness to the skin or increasing pain. Have the sutures removed by your doctor in about 7 days. If you are unable to get into your doctor, we would be happy to remove the sutures in that same timeframe. Prescriptions: No Action carbidopa-levodopa 25-100 mg tablet 2 tab PO TID Qty: 180 RF: 2 carbidopa-levodopa 50-200 mg tablet extended release 1 tab PO BEDTIME RF: 0 trospium 20 mg tablet 20 mg PO BID RF: 0 melatonin 10 mg capsule 10 mg PO BEDTIME PRN (Reason: sleep) Qty: 30 RF: 0 rivastigmine tartrate 6 mg capsule 1 tab PO BID RF: 0 fluoxetine 20 mg capsule 60 mg PO DAILY RF: 0 Referrals: Yfn Arreaga MD [Primary Care Provider] -
--- NOTE | 2018-09-24 03:49 | PC.NURSE ---
her left arm skin tear lac was sutured by ,then bacitracin,telfa,kerlix and coban applied.her right arm skin tear was cleaned with soap and water then steri strips,telfa,kerlix and coban applied.
[2018-09-24 04:15] VITALS: BP 141/74; PULSE 78; RESP 16; O2SAT 95
--- NOTE | 2018-09-24 04:31 | DI.CT.S_ITS ---
PROCEDURE: CT HEAD/BRAIN WO CON INDICATIONS: fall with head injury TECHNIQUE: Noncontrast 4.5 mm thick angled axial sections acquired from the foramen magnum to the vertex, with coronal and sagittal reformats. For radiation dose reduction, the following was used: automated exposure control, adjustment of mA and/or kV according to patient size. COMPARISON: [facility], CT, CT HEAD/BRAIN WO CON, 09/20/2018, 9:01. FINDINGS: Image quality: Excellent. CSF spaces: Basal cisterns are patent. No extra-axial fluid collections. The ventricles are symmetric in size and shape. Brain: No intracranial bleeds or masses. There is mild cerebral volume loss for age, with resultant ventricular and sulcal prominence. There are moderate periventricular and deep white matter chronic small vessel ischemic changes. There is intracranial internal carotid artery and vertebral artery atherosclerosis. Skull and face: Chronic appearing bilateral nasal bone fractures are stable. Calvarium appears intact, without suspicious lesions. Sinuses: Visualized sinuses and mastoids are clear. IMPRESSION: No acute intracranial disease process. Dictated by: Jen Champion MD, PhD on 09/24/2018 at 8:26 Approved by: Jen Champion MD, PhD on 09/24/2018 at 8:28
[2018-09-24 06:14] VITALS: BP 147/77; PULSE 80; RESP 18; O2SAT 98
== END 2018-09-24 07:25 | disposition home or self-care (01) ==
PROVIDERS: Emergency Provider Emergency Medicine; PCP Student in an Organized Health Care Education/Training Program
DX: S61.512A Laceration without foreign body of left wrist, initial encounter (principal); S09.90XA Unspecified injury of head, initial encounter; S50.911A Unspecified superficial injury of right forearm, initial encounter; W19.XXXA Unspecified fall, initial encounter
CPT/HCPCS: 12004; 70450; 99284; 99285

== ENCOUNTER 2019-02-21 09:50 | Emergency (ER) | payer MEDICARE, SELFPAY ==
[2019-01-13 14:08] VITALS: BMI 27.9
[2019-02-21 09:58] VITALS: BP 165/90; PULSE 102; RESP 18; TEMP 36.6; O2SAT 94
--- NOTE | 2019-02-21 10:00 | DI.RAD.S_ITS ---
PROCEDURE: XR PELVIS 1-2V INDICATIONS: fall pain TECHNIQUE: One view(s) of the pelvis acquired. COMPARISON: None. FINDINGS: Bones: No fractures or dislocations. No suspicious bony lesions. Bilateral hip arthroplasties noted. Partially visualized lumbar spine fixation hardware. Soft tissues: Visualized bowel gas pattern is normal. No suspicious soft tissue calcifications. IMPRESSION: No fracture. No acute osseous lesion. If symptoms and/or clinical suspicion for pathology persists, further assessment with repeat radiographs (7-10 days) or advanced imaging (e.g. CT, MRI or bone scan) may be helpful. Dictated by: Jen Champion MD, PhD on 02/21/2019 at 10:27 Approved by: Jen Champion MD, PhD on 02/21/2019 at 10:28
--- NOTE | 2019-02-21 10:07 | DI.CT.S_ITS ---
PROCEDURE: CT HEAD/BRAIN WO CON INDICATIONS: fall hit head TECHNIQUE: Noncontrast 4.5 mm thick angled axial sections acquired from the foramen magnum to the vertex, with coronal and sagittal reformats. For radiation dose reduction, the following was used: automated exposure control, adjustment of mA and/or kV according to patient size. COMPARISON: [facility], MR, MR STROKE, 09/20/2018, 10:43. [facility], CT, CT HEAD/BRAIN WO CON, 09/24/2018, 4:42. FINDINGS: Image quality: Excellent. CSF spaces: Basal cisterns are patent. No extra-axial fluid collections. The ventricles are symmetric in size and shape. Brain: No intracranial bleeds or masses. There is mild cerebral volume loss for age, with resultant ventricular and sulcal prominence. There are moderate periventricular and deep white matter chronic small vessel ischemic changes. There is intracranial internal carotid artery atherosclerosis. Skull and face: Calvarium and visualized facial bones appear intact, without suspicious lesions. Sinuses: Visualized sinuses and mastoids are clear. IMPRESSION: 1. No acute intracranial abnormalities. 2. Cerebral volume loss and chronic microvascular ischemic changes. Dictated by: Kenneth Peck M.D. on 02/21/2019 at 10:24 Approved by: Kenneth Peck M.D. on 02/21/2019 at 10:27
--- NOTE | 2019-02-21 10:12 | ED.FALL ---
HPI - Fall General Chief Complaint: Fall Stated Complaint: GLF, hip pain Time Seen by Provider: 02/21/19 09:59 Source: EMS Mode of arrival: EMS History of Present Illness HPI Narrative: Patient is an 78-year-old female history of Parkinson's presenting after ground level fall. She said she got up to feed the cat she did not feel quite well not sure how she fell but she did fall and laid on the ground and required medical assistance. She thinks she was there roughly about 1 hour and fell around 9:00 a.m.. She says that she did hit her head but there is no is evidence of trauma. She is not on any anti-platelet or anti coagulation medication. She was admitted in August for rhabdo my lysis. She has significant urinary incontinence. She does complain of hip pain. MD complaint: fall Onset (ago): hour(s) Fall from: standing Fall witnessed: no Place fall occurred: home Loss of consciousness: unsure Symptoms prior to fall: lightheadedness Related Data Home Medications Medication Instructions Recorded Confirmed carbidopa ER 50 mg-levodopa 200 mg 1 tab PO BEDTIME tab 06/26/18 02/21/19 tablet,extended release trospium 20 mg tablet 20 mg PO BID 06/26/18 02/21/19 rivastigmine tartrate 6 mg PO BID 09/18/18 02/21/19 sennosides 8.6 mg tablet 17.2 mg PO QPM 11/05/18 02/21/19 Previous Rx's Medication Instructions Recorded carbidopa 25 mg-levodopa 100 mg 2 tab PO TID #180 tab 07/29/18 tablet fluoxetine 20 mg capsule 60 mg PO DAILY #90 cap 10/21/18 melatonin 10 mg capsule 10 mg PO BEDTIME PRN #90 cap 10/21/18 cephalexin [Keflex] 500 mg PO TID #15 cap 02/21/19 Allergies Allergy/AdvReac Type Severity Reaction Status Date / Time Sulfa (Sulfonamide Allergy Severe HIVES Verified 02/21/19 09:58 Antibiotics) [SULFA (SULFONAMIDE ANTIBIOTICS)] vancomycin [VANCOMYCIN] Allergy Severe RASH AND Verified 02/21/19 09:58 BLISTERS codeine [CODEINE] Allergy Mild HEADACHE,VOMITING,MOOD Verified 02/21/19 09:58 CHANGES hydrocodone [HYDROCODONE] Allergy Mild NAUSEA,ITCHING,MOOD Verified 02/21/19 09:58 CHANGES Review of Systems Review of Systems ROS Unobtainable: All systems reviewed & are unremarkable except as noted in HPI and below Constitutional Constitutional: Denies chills, Denies fever(s), Denies lethargy and Denies weakness Eyes Eyes: Denies change in vision, Denies eye discharge, Denies irritation and Denies loss of vision ENT Ears, Nose, Mouth, and Throat: Denies change in voice, Denies neck pain and Denies sore throat Cardiovascular Cardiovascular: Denies chest pain, Denies irregular heart rhythm, Denies lightheadedness, Denies palpitations, Denies dyspnea, Denies dyspnea on exertion and Denies orthopnea Respiratory Respiratory: Denies cough, Denies dyspnea, Denies dyspnea on exertion and Denies wheezing Gastrointestinal Gastrointestinal: Denies abdominal pain, Denies change in bowel habits, Denies diarrhea, Denies nausea and Denies vomiting Genitourinary Genitourinary: Reports urinary incontinence Musculoskeletal Musculoskeletal: Reports as per HPI and Denies neck pain Integumentary/Breasts Skin/Breast: Denies pruritus, Denies erythema, Denies rash and Denies wounds Neurologic Neurologic: Denies loss of vision and Denies weakness Endocrine Endocrine: Denies palpitations Allergic/Immunologic Allergic/Immunologic: Denies wheezing Exam Initial Vital Signs Initial Vital Signs: Vital Signs Temperature 97.8 F 02/21/19 09:58 Pulse Rate 102 H 02/21/19 09:58 Respiratory Rate 18 02/21/19 09:58 Blood Pressure 165/90 H 02/21/19 09:58 Pulse Oximetry 94 02/21/19 09:58 GENERAL: Alert elderly female and in no acute distress. HEENT: Head atraumatic,EOMI, pupils reactive, face symmetric, moist mucous membranes NECK: Supple no tenderness CARDIOVASCULAR: Regular rate and rhythm without murmurs, rubs or gallops. RESPIRATORY: Breath sounds equal bilaterally, no wheezes rales or rhonchi. ABDOMEN: Soft, nontender. Normoactive bowel sounds all 4 quadrants. No guarding or rebound. : No CVA tenderness BACK: No vertebral tenderness EXTREMITIES: Normal range of motion, no clubbing or edema. Neurovascularly intact NEUROLOGICAL: No facial drooping. Able to lift both right and left leg off gurney although difficult harder with the left. Gasoline Tractor Operator strength equal bilaterally SKIN: Warm, dry, no laceration, no petechiae, no rashes or lesions. [facility] Social History household members: none Smoking Status: Former smoker alcohol intake: current substance use type: does not use Course Orders Ordered: ED Orders 02/21/19 10:00 XR pelvis 1-2V Stat 02/21/19 10:07 CT head/brain wo con Stat 02/21/19 10:10 Complete Blood Count AUTO DIFF Stat Comprehensive Metabolic Panel Stat Creatine Kinase Stat Lactate (Lactic Acid) Stat Procalcitonin Stat 02/21/19 10:30 Blood Culture Stat 02/21/19 11:23 Urinalysis and Microscopic Stat Urine Culture Stat 02/21/19 12:00 Consult to Physical Therapy Evaluate & Treat 02/21/19 12:15 Consult to Fuel Handler Stat Discontinued Medications Ceftriaxone Sodium/Dextrose (Rocephin) 1 gm in 50 mls @ 100 mls/hr IV NOW ONE Stop: 02/21/19 13:14 Last Infusion: 02/21/19 13:10 Dose: 0 mls/hr Documented by: Admin: 02/21/19 12:49 Dose: 100 mls/hr Documented by: TONIA Ketorolac Tromethamine (Toradol) 15 mg IV NOW ONE Stop: 02/21/19 12:47 Last Admin: 02/21/19 12:48 Dose: 15 mg Documented by: TONIA Medroxyprogesterone Acetate (Medroxyprogesterone) 20 mg PO NOW ONE Stop: 02/21/19 12:46 Last Admin: 02/21/19 12:48 Dose: Not Given Documented by: TONIA Vital Signs Vital signs: Vital Signs - 8 hr 02/21/19 12:00 02/21/19 12:41 02/21/19 14:46 Pulse Rate 97 H 97 H 89 Respiratory Rate 18 13 17 Blood Pressure [Left Arm] 146/85 H 143/82 H 98/60 Pulse Oximetry 95 95 97 MDM - Fall Lab Data Attestation: I reviewed the patient's lab results. Result diagrams: 02/21/19 10:10 02/21/19 10:10 Labs: Lab Results 02/21/19 02/21/19 02/21/19 Range/Units 10:10 10:10 10:10 WBC 6.5 (4.5-11.0) X10^3/uL RBC 5.64 H (4.0-5.2) X10^6/uL Hgb 16.3 H (12.0-16.0) g/dL Hct 48.4 H (36-46) % MCV 85.8 (80-100) fL MCH 29.0 (26-34) PG MCHC 33.8 (30-36) % RDW 14.2 (11.6-14.8) % Plt Count 116 L (150-400) X10^3/uL Neut % (Auto) 89.2 H (50-75) % Lymph % (Auto) 4.5 L (25-40) % [place] % (Auto) 5.7 (3-14) % Eos % (Auto) 0.2 L (2-4) % Baso % (Auto) 0.4 (0-2) % Neut # (Auto) 5800 (0330-8277) /uL Lymph # (Auto) 300 L (8313-9551) /uL [place] # (Auto) 400 (0-900) /uL Eos # (Auto) 0 (0-450) /uL Baso # (Auto) 0 (0-100) /uL Sodium 138 (137-145) mmol/L Potassium 3.5 (3.4-5.1) mmol/L Chloride 100 (98-107) mmol/L Carbon Dioxide 26 (22-32) mmol/L BUN 21 H (7-17) mg/dL Creatinine 1.00 (0.52-1.04) mg/dL Estimated GFR 53.3 L (>60) mL/min BUN/Creatinine Ratio 21.0 (6-22) Glucose 160 H (80-110) mg/dL Lactate (0.7-2.1) mmol/L Calcium 9.3 (8.4-10.2) mg/dL Total Bilirubin 1.7 H (0.2-1.3) mg/dL AST 46 H (14-36) IU/L ALT 13 (9-52) IU/L Alkaline Phosphatase 100 (38-126) U/L Total Creatine Kinase 93 (30-135) U/L Total Protein 8.1 (6.3-8.2) g/dL Albumin 4.6 (3.5-5.0) g/dL Globulin 3.5 (1.7-4.1) g/dL Albumin/Globulin Ratio 1.3 (1.0-2.8) Procalcitonin 0.20 (<0.5) ng/mL Urine Color Urine Appearance Urine pH (4.5-8.0) Ur Specific [place] (1.000-1.035) Urine Protein (Negative) Urine Glucose (UA) (Negative) g/dL Urine Ketones (NEGATIVE) Urine Occult Blood (Negative) Urine Nitrate (Negative) Urine Bilirubin (NEGATIVE) Urine Urobilinogen (0.2) E.U./dL Ur Leukocyte Esterase (NEGATIVE) Urine RBC (0-5/HPF) Urine WBC (0-5/HPF) Urine Bacteria (None) Ur Culture Indicated? 02/21/19 02/21/19 Range/Units 10:10 11:23 WBC (4.5-11.0) X10^3/uL RBC (4.0-5.2) X10^6/uL Hgb (12.0-16.0) g/dL Hct (36-46) % MCV (80-100) fL MCH (26-34) PG MCHC (30-36) % RDW (11.6-14.8) % Plt Count (150-400) X10^3/uL Neut % (Auto) (50-75) % Lymph % (Auto) (25-40) % [place] % (Auto) (3-14) % Eos % (Auto) (2-4) % Baso % (Auto) (0-2) % Neut # (Auto) (0146-5858) /uL Lymph # (Auto) (8475-4321) /uL [place] # (Auto) (0-900) /uL Eos # (Auto) (0-450) /uL Baso # (Auto) (0-100) /uL Sodium (137-145) mmol/L Potassium (3.4-5.1) mmol/L Chloride (98-107) mmol/L Carbon Dioxide (22-32) mmol/L BUN (7-17) mg/dL Creatinine (0.52-1.04) mg/dL Estimated GFR (>60) mL/min BUN/Creatinine Ratio (6-22) Glucose (80-110) mg/dL Lactate 1.1 (0.7-2.1) mmol/L Calcium (8.4-10.2) mg/dL Total Bilirubin (0.2-1.3) mg/dL AST (14-36) IU/L ALT (9-52) IU/L Alkaline Phosphatase (38-126) U/L Total Creatine Kinase (30-135) U/L Total Protein (6.3-8.2) g/dL Albumin (3.5-5.0) g/dL Globulin (1.7-4.1) g/dL Albumin/Globulin Ratio (1.0-2.8) Procalcitonin (<0.5) ng/mL Urine Color Yellow Urine Appearance Cloudy Urine pH 7.0 (4.5-8.0) Ur Specific [place] 1.010 (1.000-1.035) Urine Protein 2+ H (Negative) Urine Glucose (UA) Trace H (Negative) g/dL Urine Ketones 1+ H (NEGATIVE) Urine Occult Blood 3+ H (Negative) Urine Nitrate Positive (Negative) Urine Bilirubin Negative (NEGATIVE) Urine Urobilinogen 0.2 (0.2) E.U./dL Ur Leukocyte Esterase 3+ H (NEGATIVE) Urine RBC 10-30/hpf H (0-5/HPF) Urine WBC 10-30/hpf H (0-5/HPF) Urine Bacteria Few (2-10) H (None) Ur Culture Indicated? Specimen cultured MDM Narrative Medical decision making narrative: The patient is noted to be 2 person assist with nursing. Physical therapy to see and evaluate patient. Social Work also involved. Patient lives alone she has frequent falls. However patient refuses to go to home. Daughter is well aware of that she has been trying to get her to go to home however she has been unsuccessful. Physical therapy evaluated patient she is ambulatory with a walker without any difficulty. At this time she meets no admission criteria. She does not have a mild UTI she is given 1 dose of Rocephin in the ED and a prescription. Patient is anxious to get back home, daughter is here and will take her. Discharge Plan Departure Patient Disposition: Home Clinical Impression: Acute UTI Fall Qualifiers: Encounter type: initial encounter Qualified Code(s): W19.XXXA - Unspecified fall, initial encounter Discharge Date/Time: 02/21/19 14:55 Instructions: DI for Urinary Tract Infection (UTI), How to Prevent Falls Activity Restrictions/Additional Instructions: *You have been diagnosed with UTI, frequent falls *What to do: Use walker. It is recommended that you have continued his home physical therapy *Continue to take medications as directed Keflex 500 mg 3 times a day for 5 days--> SENT TO [facility] *Follow up with your primary care provider in 2-3 days *Return to ER if you should have behavior changes, increase in frequent falls or any new, worsening or concerning symptoms Prescriptions: New cephalexin [Keflex] 500 mg capsule 500 mg PO TID Qty: 15 RF: 0 No Action carbidopa-levodopa 25-100 mg tablet 2 tab PO TID Qty: 180 RF: 2 fluoxetine 20 mg capsule 60 mg PO DAILY Qty: 90 RF: 1 melatonin 10 mg capsule 10 mg PO BEDTIME PRN (Reason: sleep) Qty: 90 RF: 1 carbidopa-levodopa 50-200 mg tablet extended release 1 tab PO BEDTIME RF: 0 trospium 20 mg tablet 20 mg PO BID RF: 0 sennosides [senna] 8.6 mg tablet 17.2 mg PO QPM RF: 0 rivastigmine tartrate 6 mg capsule 6 mg PO BID RF: 0 Referrals: Yfn Arreaga MD [Primary Care Provider] -
[2019-02-21 10:17] VITALS: BP 176/78; PULSE 105; RESP 18; O2SAT 95
--- NOTE | 2019-02-21 10:19 | PC.NURSE ---
reports progressing parkinsons w/ increased falls over the past months. Has had parkinsons meds this am. States 'now they are going to put me in a usp'. Two full assist to move to commode and back. Has significant issues initiating movement in her legs. Upper body strength appears to be wnl. a/o x 3.
[2019-02-21 10:21] LABS: Add Manual Diff / Slide Review NO; Basophils Absolute Auto 0 /uL (0-100); Basophils Percent Auto 0.4 % (0-2); Eosinophils Absolute Auto 0 /uL (0-450); Eosinophils Percent Auto 0.2 % (2-4); Hematocrit 48.4 % (36-46); Hemoglobin 16.3 g/dL (12.0-16.0); Lymphocytes Absolute Auto 300 /uL (1100-4500); Lymphocytes Percent Auto 4.5 % (25-40); Mean Corpuscular HGB Conc 33.8 % (30-36); Mean Corpuscular Volume 85.8 fL (80-100); Monocytes Absolute Auto 400 /uL (0-900); Monocytes Percent Auto 5.7 % (3-14); Neutrophils Absolute Auto 5800 /uL (1500-7000); Neutrophils Percent Auto 89.2 % (50-75); Platelet Count 116 X10^3/uL (150-400); Red Blood Cell Count 5.64 X10^6/uL (4.0-5.2); Red Cell Distribution Width 14.2 % (11.6-14.8); White Blood Cell Count 6.5 X10^3/uL (4.5-11.0)
[2019-02-21 10:33] LABS: Alanine Aminotransferase 13 IU/L (9-52); Albumin 4.6 g/dL (3.5-5.0); Albumin Globulin Ratio 1.3 (1.0-2.8); Alkaline Phosphatase 100 U/L (38-126); Aspartate Aminotransferase 46 IU/L (14-36); Bilirubin Total 1.7 mg/dL (0.2-1.3); Blood Urea Nitrogen 21 mg/dL (7-17); Calcium 9.3 mg/dL (8.4-10.2); Carbon Dioxide 26 mmol/L (22-32); Chloride 100 mmol/L (98-107); Creatine Kinase 93 U/L (30-135); Estimated Glomerular Filt Rate 53.3 mL/min (>60); Globulin 3.5 g/dL (1.7-4.1); Glucose 160 mg/dL (80-110); HEMOLYSIS < 15 (0-50); Lactate (Lactic Acid) 1.1 mmol/L (0.7-2.1); Potassium 3.5 mmol/L (3.4-5.1); Sodium 138 mmol/L (137-145); Total Protein 8.1 g/dL (6.3-8.2)
[2019-02-21 11:26] LABS: Appearance Urine UA CLOUDY; Bilirubin Urine UA NEGATIVE (NEGATIVE); Color Urine UA YELLOW; Glucose Urine UA TRACE g/dL (Negative); Ketones Urine UA 1+ (NEGATIVE); Leukocyte Esterase Urine UA 3+ (NEGATIVE); Nitrite Urine UA POSITIVE (Negative); Occult Blood Urine UA 3+ (Negative); Protein Urine UA 2+ (Negative); Urobilinogen Urine UA 0.2 E.U./dL (0.2)
[2019-02-21 11:37] LABS: Bacteria Urine Few (2-10); Culture Indicated Urine Specimen Cultured; RBC Urine 10-30/HPF (0-5/HPF); WBC Urine 10-30/HPF (0-5/HPF)
[2019-02-21 12:00] VITALS: BP 146/85; PULSE 97; RESP 18; O2SAT 95
[2019-02-21 12:41] VITALS: BP 143/82; PULSE 97; RESP 13; O2SAT 95
[2019-02-21] MEDS: KETOROLAC 60 MG/2 ML VIAL 15 MG IV (12:48)
[2019-02-21] MEDS: CEFTRIAXONE 1 GM/50 ML FROZ.PIGGY IV (12:49)
--- NOTE | 2019-02-21 14:30 | PT.IIE ---
Surgical History (Last Reviewed 09/24/18 @ 03:38 by Tato Foster DO) History of bladder surgery (Resolved) History of hip replacement (Resolved 2000) History of left cataract surgery (Resolved 12/11/15) History of oophorectomy (Resolved) History of right cataract surgery (Resolved 12/25/15) History of tonsillectomy (Resolved) History of tracheostomy (Resolved 04/2014) Status post appendectomy (Resolved) Status post cholecystectomy (Resolved 2000) Status post hysterectomy (Resolved 1967) Status post laminectomy (Resolved 2010) Medical History (Last Reviewed 09/24/18 @ 03:38 by Tato Foster DO) Arthritis (Chronic) Dementia with Parkinsonism (Acute) Fall from ground level (Resolved 04/2014) Hemopneumothorax (Resolved 04/2014) Hypertension (Chronic) Lumbar spinal stenosis (Chronic) Menopause (Resolved ) Parkinson's disease (Chronic) Peripheral neuropathy (Chronic) Respiratory failure (Resolved 04/2014) Rib fractures (Resolved 04/2014) Urinary incontinence (Chronic) Physical Therapy Inpatient Evaluation/Re-Eval M1 PT/OT-IP Prior Functional Status Start: 02/21/19 15:24 Freq: Status: Active Protocol: Document 02/21/19 14:30 RS (Rec: 02/21/19 15:31 [email or web address]) Medical Review Prior Functional Status Medical History Reviewed Yes Diet/Fluid Consistency Regular Communication no known deficits Mobility and Gait mod ind with 4WW, does endorse falls as tremors are worsening Activities of Daily Living and IADL's has paid caregiver 4hrs/day, 7days/wk, usually in the evening to help with shower Prior Functional Level (Other details) does not drive Social History Household Members none Living Arrangements House Number of Floors (Floors) One Floor Number of Stairs To Enter/Railing? ramped entry Home Environment High Toilet Home Equipment Four Wheel Walker,Manual Wheelchair,Raised Toilet Seat Without Armrests M2 PT-IP Current Condition Start: 02/21/19 15:24 Freq: Status: Active Protocol: Document 02/21/19 14:30 RS (Rec: 02/21/19 15:31 [email or web address]) Physical Therapy Current Condition Current Condition Evaluation Date 02/21/19 Treatment Diagnosis impaired mobility r/t PD Onset Date 1-2 weeks ago M3 PT-IP Subjective Start: 02/21/19 15:24 Freq: Status: Active Protocol: Document 02/21/19 14:30 RS (Rec: 02/21/19 15:31 RS [email or web address]) Subjective Physical Therapy Visit Type Type Initial Evaluation Visit Start Time 13:30 Visit Stop Time 14:30 Total Visit Minutes 60 Physical Therapy Visit Comments Patient Comments Pt reports she is feeling ok Patient Goals wants to go home, declining rehab Therapy Pain Assessment Pain When Pain Assessed At Rest Pain Present Pain Present Denied Pain M4 PT-IP Mobility and Gait Start: 02/21/19 15:24 Freq: Status: Active Protocol: Document 02/21/19 14:30 RS (Rec: 02/21/19 15:31 RS [email or web address]) PT-Bed Mobility Assessment Supine to Sit Supine to Sit Independent Sit to Supine Sit to Supine Independent Scooting Scooting to Edge of Bed Independent PT-Transfer Assessment Sit to and From Stand Sit to and from Stand Standby Assistance,Contact Guard Assistance Equipment Transfer Assistive Device Gait Belt,4 Wheeled Walker Transfers Transfer Technique Stand Step Pivot Transfer Ability Level of Assist Standby Assistance,Contact Guard Assistance Gait Assessment Gait Gait Assistance Required: Standby Assistance,Contact Guard Assist Assistive Devices Assistive Device Gait Belt,4 Wheeled Walker Factors Limiting Gait Function Factors Limiting Gait Function Incoordination,Poor Balance PT-Balance Assessment Sitting Balance and Reactions Static Sitting Balance Ability Normal Dynamic Sitting Balance Ability Good Standing Balance and Reactions Static Standing Balance Ability Fair Dynamic Standing Balance Ability Fair Device Used 4WW/FWW M5 PT-IP Objective Assessments Start: 02/21/19 15:24 Freq: Status: Active Protocol: Document 02/21/19 14:30 RS (Rec: 02/21/19 15:31 RS [email or web address]) Orientation Orientation/Cognition Level of Alertness Alert Orientation Name,Age,Birthday,Month,Date, Year,Day of Week,Place, Situation Language Function Ability No Deficits Noted Safety Awareness Understands Safety Issues Memory Description No Deficits Noted Gross Range of Motion Upper Extremity ROM Assessment Within Functional Limits Lower Extremity ROM Assessment Within Functional Limits Coordination Assessment Assessment Finger to Nose Test Moderate Impairment Foot Tapping Test Moderate Impairment Heel on Cheng Test Moderate Impairment M6 PT-IP Treatment Start: 02/21/19 15:24 Freq: Status: Active Protocol: Document 02/21/19 14:30 RS (Rec: 02/21/19 15:31 RS [email or web address]) Physical Therapy Treatment Education Education Provided Safety M7 PT-IP Assessment and Plan Start: 02/21/19 15:24 Freq: Status: Active Protocol: Document 02/21/19 14:30 RS (Rec: 02/21/19 15:31 [email or web address]) PT Summary Assessment and Plan Potential Rehabilitation Potential Fair Status of Condition at Evaluation Evolving Summary Impairments Balance,Coordination,Transfers ,Gait Assessment Summary Pt presents with worsening tremors and significantly impaired balance. Pt is currently at a high risk for falls and needs CGA for all OOB mobility with a walker. This is below pt's reported functional baseline. Pt does have potential for functional improvement and will benefit from a short SNF rehab stay to participate in daily skilled therapies while also adjusting PD meds. Pt adamantly wants to go home and declines SNF. It was then recommended that if pt does home she increase caregiver hours such that someone is home with her during all waking hours to assist with all OOB mobility and MRADLs, and then to also participate in HHPT. Pt expressed understanding, unclear if pt intends to follow this recommendation. Pt will be discharging home shortly, therefore, acute PT will sign off. Frequency of Treatment Frequency Of Treatment Discharge Recommendations To Nursing Amount of Assist Needed 1 Person Assist Discharge Recommendations PT Discharge Recommendations Home with 15/12 Assist,Home Health
[2019-02-21 14:46] VITALS: BP 98/60; PULSE 89; RESP 17; O2SAT 97
--- NOTE | 2019-02-21 14:52 | CM.SWNOTE ---
DIE ATTACHER/ED note: Reviewed chart. Received call from ED staff requesting assistance with d/c planning. Per Dr. Diaz patient brought to ED with complaints of hip pain after GLF. Patient has life alert and was brought in by EMS. ED ordered therapy evaluation to determine mobility need. Patient determined not to have fracture or injury requiring surgical/hospital intervention. PCP is Dr. Arreaga. Primary payor is 1)Medicare 2)[facility]. DIE ATTACHER and CM/RN met with patient and daughter/Haielle explained role. Daughter reports that patient resides alone in [place]. Family want patient to move into assisted living. They have toured [facility] and really liked it however, patient did not. Daughter reports patient adamant about staying in her home as long as she can. Patient alert and oriented at time of visit. Patient confirms her desire to return home. Patient does report that she has someone that comes in daily to assist her with ADL's. Daughter confirms that they use [facility] [employer]/ private caregiver that comes in 4hrs per day 7days per week. Daughter confirms that family very concerned that patient will injure herself at home. Patient denies the need for additional help. Daughter does report that home is 1 level and that patient has all needed equipment in the residence. ED staff updated after therapy evaluation completed. Current recommendation is short SNF stay or additional care giving hours in the home. At time of DIE ATTACHER visit patient refusing short SNF stay and reports that she will return home. P: Home today. Patient and family provided with senior resource guide and encouraged to increase care giving hours and follow up with PCP and request HH if mobility an issue and patient unable to go as outpatient. HENRIETTA Charlton
== END 2019-02-21 14:55 | disposition home or self-care (01) ==
PROVIDERS: Emergency Provider Emergency Medicine; PCP Student in an Organized Health Care Education/Training Program
DX: N39.0 Urinary tract infection, site not specified (principal); M25.559 Pain in unspecified hip; S09.90XA Unspecified injury of head, initial encounter; W18.30XA Fall on same level, unspecified, initial encounter
CPT/HCPCS: 36415; 70450; 72170; 80053; 81001; 82550; 83605; 84145; 85025; 87040; 87077; 87086; 87186; 96365; 96375; 97112; 97116; 97162; 97530; 99284; 99285; J1885

== ENCOUNTER → 2019-03-07 16:23 | Outpatient (CLI) | payer MEDICARE, SELFPAY ==
[2019-01-13 14:08] VITALS: BMI 27.9
[2019-03-07 18:00] LABS: Appearance Urine UA CLEAR; Bilirubin Urine UA NEGATIVE (NEGATIVE); Color Urine UA YELLOW; Glucose Urine UA NEGATIVE (Negative); Ketones Urine UA TRACE (NEGATIVE); Leukocyte Esterase Urine UA 1+ (NEGATIVE); Nitrite Urine UA NEGATIVE (Negative); Occult Blood Urine UA TRACE-LYSED (Negative); Protein Urine UA TRACE (Negative); Urobilinogen Urine UA 0.2 E.U./dL (0.2)
[2019-03-07 18:09] LABS: pH Urine UA 5.5 (4.5-8.0)
[2019-03-07 18:10] LABS: Bacteria Urine None Seen
[2019-03-07 18:26] LABS: RBC Urine 1-5/HPF (0-5/HPF); Squamous Epithelial Cell Urine 1-5 /HPF (0-5/HPF); WBC Urine 5-10/HPF (0-5/HPF)
[2019-03-07 18:29] LABS: Culture Indicated Urine Specimen Cultured
== END ==
PROVIDERS: PCP Student in an Organized Health Care Education/Training Program; Visit Provider Nurse Practitioner
DX: Z87.440 Personal history of urinary (tract) infections (principal)
CPT/HCPCS: 81003; 81015; 87086

== ENCOUNTER 2019-04-10 08:38 | Observation (INO) | payer MEDICARE, SELFPAY ==
[2019-01-13 14:08] VITALS: BMI 27.9
[2019-04-10] VITALS (10 sets, daily range): BP systolic 137–202; BP diastolic 76–103; PULSE 76–88; RESP 11–18; TEMP 36.5–36.8; O2SAT 95–97; BMI 26.2
--- NOTE | 2019-04-10 08:40 | DI.CT.S_ITS ---
PROCEDURE: CT HEAD/BRAIN WO CON INDICATIONS: stroke, NOt TPA TECHNIQUE: Noncontrast 4.5 mm thick angled axial sections acquired from the foramen magnum to the vertex, with coronal and sagittal reformats. For radiation dose reduction, the following was used: automated exposure control, adjustment of mA and/or kV according to patient size. COMPARISON: [facility], CT, CT HEAD/BRAIN WO CON, 02/21/2019, 10:03. FINDINGS: Image quality: Diagnostic. CSF spaces: Basal cisterns are patent. No extra-axial fluid collections. Ventricles are normal in size and shape. There is mild parenchymal volume loss. Brain: No midline shift. No intracranial masses or hemorrhage. Riley-white matter interface is normal. Areas of low-attenuation are seen within the periventricular and deep white matter of the supratentorial parenchyma similar to the prior study. Skull and face: Calvarium and visualized facial bones are intact, without suspicious lesions. Sinuses: Visualized sinuses and mastoids are clear. IMPRESSION: 1. No acute intracranial hemorrhage. 2. Mild chronic small vessel ischemic changes. Dictated by: Mitch Nuñez M.D. on 04/10/2019 at 7:51 Approved by: Mitch Nuñez M.D. on 04/10/2019 at 7:53
[2019-04-10 08:52] LABS: Add Manual Diff / Slide Review NO; Basophils Absolute Auto 0 /uL (0-100); Eosinophils Absolute Auto 100 /uL (0-450); Eosinophils Percent Auto 3.6 % (2-4); Hematocrit 42.2 % (36-46); Hemoglobin 14.3 g/dL (12.0-16.0); Lymphocytes Absolute Auto 700 /uL (1100-4500); Lymphocytes Percent Auto 17.7 % (25-40); Mean Corpuscular HGB Conc 33.9 % (30-36); Mean Corpuscular Hemoglobin 29.2 PG (26-34); Monocytes Absolute Auto 400 /uL (0-900); Monocytes Percent Auto 9.2 % (3-14); Neutrophils Absolute Auto 2800 /uL (1500-7000); Neutrophils Percent Auto 68.5 % (50-75); Platelet Count 126 X10^3/uL (150-400); Red Blood Cell Count 4.91 X10^6/uL (4.0-5.2); Red Cell Distribution Width 15.4 % (11.6-14.8); White Blood Cell Count 4.2 X10^3/uL (4.5-11.0)
[2019-04-10 09:03] LABS: INR 0.9 (0.9-1.3); Prothrombin Time 10.7 SECONDS (10.1-12.7)
[2019-04-10 09:06] LABS: PTT Partial Thromboplastin Tim 26 SECONDS (26.4-36.2)
--- NOTE | 2019-04-10 09:14 | PC.NURSE ---
incontinent of urine, pericare provided, in and out done, obtained urine sent to lab.
[2019-04-10 09:21] LABS: BUN Creatinine Ratio 17.3 (6-22); Blood Urea Nitrogen 19 mg/dL (7-17); Calcium 9.1 mg/dL (8.4-10.2); Carbon Dioxide 30 mmol/L (22-32); Chloride 104 mmol/L (98-107); Estimated Glomerular Filt Rate 47.8 mL/min (>60); Glucose 95 mg/dL (80-110); HEMOLYSIS 30 (0-50); Potassium 3.6 mmol/L (3.4-5.1); Sodium 140 mmol/L (137-145)
[2019-04-10 09:23] LABS: Bacteria Urine None Seen
[2019-04-10] MEDS: SODIUM CHLORIDE 0.9% 1,000 ML 150 ML IV (09:29)
[2019-04-10 09:34] LABS: UR Morphine/Opiate cutoff 300 Negative (Negative); Ur Creatinine 20 (Normal); Ur Specific Gravity 1.005 (Normal); Urine Amphetamines Negative (Negative); Urine Barbiturates Negative (Negative); Urine Benzodiazepines Negative (Negative); Urine Cocaine Negative (Negative); Urine MDMA Negative (Negative); Urine Methadone Negative (Negative); Urine Methamphetamines Negative (Negative); Urine Oxycodone Negative (Negative); Urine Phencyclidine Negative (Negative); Urine Tetrahydrocannabinol Negative (Negative); Urine Tricyclic Antidepressant Negative (Negative); Urine pH 7 (Normal)
[2019-04-10 09:43] LABS: Appearance Urine UA CLEAR; Bilirubin Urine UA NEGATIVE (NEGATIVE); Color Urine UA YELLOW; Glucose Urine UA NEGATIVE (Negative); Ketones Urine UA NEGATIVE (NEGATIVE); Leukocyte Esterase Urine UA TRACE (NEGATIVE); Nitrite Urine UA NEGATIVE (Negative); Occult Blood Urine UA 3+ (Negative); Protein Urine UA NEGATIVE (Negative); Urobilinogen Urine UA 0.2 E.U./dL (0.2)
[2019-04-10 09:46] LABS: pH Urine UA 7.5 (4.5-8.0)
[2019-04-10 09:53] LABS: RBC Urine 1-5/HPF (0-5/HPF); WBC Urine 0-1/HPF (0-5/HPF)
[2019-04-10 09:54] LABS: Amorphous Sediment Urine 1+; Culture Indicated Urine Cult Not Indicated; Squamous Epithelial Cell Urine 1-5 /HPF (0-5/HPF)
--- NOTE | 2019-04-10 09:58 | DI.RAD.S_ITS ---
PROCEDURE: XR CHEST 1V INDICATIONS: weakness, fatigue TECHNIQUE: One view of the chest was acquired. COMPARISON: [facility], , CHEST 2 VIEW, 06/20/2016, 15:59. FINDINGS: Surgical changes and devices: None. Lungs and pleura: Lungs are clear. No pleural effusions or pneumothorax. Mild elevation of left diaphragm is present. Mediastinum: Mediastinal contours appear normal. Heart size is normal. There is aortic atherosclerosis. Bones and chest wall: No suspicious bony lesions. A remote left clavicle fracture is evident. Prominent degenerative changes of the spine are not adequately characterized. Deformity of multiple left sided ribs are likely related to previous trauma. Overlying soft tissues appear unremarkable. IMPRESSION: Stable chest. No acute cardiopulmonary process is evident. Dictated by: Mitch Nuñez M.D. on 04/10/2019 at 9:23 Approved by: Mitch Nuñez M.D. on 04/10/2019 at 9:24
--- NOTE | 2019-04-10 09:58 | ED.NEUROSD ---
HPI - Neuro Symptoms/Deficit General Chief Complaint: Neuro Symptoms/Deficit Stated Complaint: Couldn't move, L mild facial droop Time Seen by Provider: 04/10/19 08:39 Source: EMS Mode of arrival: EMS Limitations: no limitations History of Present Illness HPI Narrative: 78-year-old female former smoker with history of Parkinson's lives at home alone and has been feeling poorly for the past few days but today called the paramedics because she was so weak she could even get out of bed to use the bathroom. She denies any fever or chills. She denies any nausea or vomiting but did have some diarrhea after taking a stool softener due to constipation. She denies any diet or medication change. She lives at home alone and normally ambulates with a walker but is far too weak at this point time to ambulate safely. On arrival the paramedics noted some right-sided facial weakness, which the patient states has been there for quite some time. Her fast exam was negative, she was activated as a code stroke. She denies any focal neurologic findings and states that she has no trouble with her thought processes, vision and denies any numbness or tingling. Onset (ago): hour(s) Location: right face History of same: Yes Severity: moderate Quality: weak Relieving factors: none Exacerbating factors: none Context: gradual onset On Anticoagulants: No Treatments Prior to Arrival: none Related Data Home Medications Medication Instructions Recorded Confirmed carbidopa ER 50 mg-levodopa 200 mg 1 tab PO BEDTIME tab 06/26/18 04/06/19 tablet,extended release trospium 20 mg tablet 20 mg PO BID 06/26/18 04/06/19 rivastigmine tartrate 6 mg PO BID 09/18/18 04/06/19 sennosides 8.6 mg tablet 17.2 mg PO QPM 11/05/18 04/06/19 carbidopa 25 mg-levodopa 100 mg 2 tab PO QID tab 03/07/19 04/06/19 tablet Previous Rx's Medication Instructions Recorded melatonin 10 mg capsule 10 mg PO BEDTIME PRN #90 cap 10/21/18 fluoxetine 20 mg capsule 60 mg PO DAILY #90 cap 02/23/19 saliva substitute combo no.9 15 ml MM BID-QID PRN #1000 ml 04/06/19 Allergies Allergy/AdvReac Type Severity Reaction Status Date / Time Sulfa (Sulfonamide Allergy Severe HIVES Verified 04/10/19 09:13 Antibiotics) [SULFA (SULFONAMIDE ANTIBIOTICS)] vancomycin [VANCOMYCIN] Allergy Severe RASH AND Verified 04/10/19 09:13 BLISTERS codeine [CODEINE] Allergy Mild HEADACHE,VOMITING,MOOD Verified 04/10/19 09:13 CHANGES hydrocodone [HYDROCODONE] Allergy Mild NAUSEA,ITCHING,MOOD Verified 04/10/19 09:13 CHANGES Review of Systems Constitutional Constitutional: Denies chills, Reports fatigue, Denies fever(s), Denies frequent falls, Denies lethargy and Reports weakness Eyes Eyes: Denies change in vision, Denies eye discharge, Denies irritation and Denies loss of vision ENT Ears, Nose, Mouth, and Throat: Denies change in voice, Denies dizziness, Denies neck pain, Denies sore throat and Denies throat swelling Cardiovascular Cardiovascular: Denies chest pain, Denies irregular heart rhythm, Denies lightheadedness, Denies palpitations, Denies dyspnea, Denies dyspnea on exertion and Denies orthopnea Respiratory Respiratory: Denies cough, Denies dyspnea, Denies dyspnea on exertion and Denies wheezing Gastrointestinal Gastrointestinal: Denies abdominal pain, Denies change in bowel habits, Denies diarrhea, Denies nausea and Denies vomiting Genitourinary Genitourinary: Denies hematuria, Denies flank pain, Denies urinary incontinence and Denies urinary urgency Musculoskeletal Musculoskeletal: Denies back pain, Denies muscle weakness, Denies neck pain, Denies numbness and Denies tingling Integumentary/Breasts Skin/Breast: Denies pruritus, Denies erythema, Denies rash and Denies wounds Neurologic Neurologic: Denies behavioral changes, Denies confusion, Denies dizziness, Denies frequent falls, Denies loss of vision, Denies numbness, Denies tingling and Reports weakness Psychiatric Psychiatric: Denies anxiety, Denies behavioral changes, Denies confusion, Denies depression, Denies homicidal ideation and Denies suicidal ideation Endocrine Endocrine: Reports fatigue, Denies flushing and Denies palpitations Hematologic/Lymphatic Hematologic/Lymphatic: Denies easy bruising Allergic/Immunologic Allergic/Immunologic: Denies urticaria, Denies throat swelling and Denies wheezing Patient History Medical History Arthritis (Chronic) Dementia with Parkinsonism (Acute) Fall from ground level (Resolved 04/2014) Hemopneumothorax (Resolved 04/2014) Hypertension (Chronic) Lumbar spinal stenosis (Chronic) Menopause (Resolved ~1983) Parkinson's disease (Chronic) Peripheral neuropathy (Chronic) Respiratory failure (Resolved 04/2014) Rib fractures (Resolved 04/2014) Urinary incontinence (Chronic) Surgical History History of bladder surgery (Resolved) History of hip replacement (Resolved 2000) History of left cataract surgery (Resolved 12/11/15) History of oophorectomy (Resolved) History of right cataract surgery (Resolved 12/25/15) History of tonsillectomy (Resolved) History of tracheostomy (Resolved 04/2014) Status post appendectomy (Resolved) Status post cholecystectomy (Resolved 2000) Status post hysterectomy (Resolved 1967) Status post laminectomy (Resolved 2010) Family History Mother Breast cancer, female Colorectal cancer Cancer Father Esophageal cancer Alcoholism Parkinson disease Social History household members: none Smoking Status: Former smoker alcohol intake: current substance use type: does not use alcohol intake frequency: 0-2 drinks per day Substance Use Type: does not use Exam Narrative Exam Narrative: GENERAL: [78] year old patient appears stated age. Ill-appearing, very weak HEAD: Atraumatic. Normocephalic. EYES: Pupils equal round and reactive. Extraocular motions intact. No scleral icterus. No injection or drainage. ENT: Dry mucous membranes Nose without bleeding, purulent drainage. Throat without erythema, tonsillar hypertrophy or exudate. Airway patent. NECK: Trachea midline. Non tender CARDIOVASCULAR: Regular rate and rhythm without murmurs, gallops, or rubs. RESPIRATORY: Clear to auscultation. Breath sounds equal bilaterally. No wheezes, rales, or rhonchi. GASTROINTESTINAL: Abdomen soft, non-tender, nondistended. EXTREMITIES: No edema or joint tenderness. BACK: Nontender without deformity or crepitance. No flank tenderness. NEURO: AOx3. SKIN: Poor skin turgor No rash or erythema of visible areas Initial Vital Signs Initial Vital Signs: Vital Signs Temperature 98 F 04/10/19 08:38 Pulse Rate 78 04/10/19 08:38 Respiratory Rate 17 04/10/19 08:38 Blood Pressure 202/102 H 04/10/19 08:38 Pulse Oximetry 97 04/10/19 08:38 Course Orders Ordered: ED Orders 04/10/19 08:40 CT head/brain wo con Stat Basic Metabolic Panel Stat Complete Blood Count AUTO DIFF Stat Partial Thromboplastin Time Stat Prothrombin Time INR Stat EKG-12 Lead Stat 04/10/19 09:08 Urine Drug Screen, Rapid Stat 04/10/19 09:22 UA dip and micro [Urinalysis and Microscopic] Stat 04/10/19 09:58 XR chest 1V Stat Sodium Chloride (Normal Saline 0.9%) 1,000 mls @ 150 mls/hr IV CONT SUJIT Last Admin: 04/10/19 09:29 Dose: 150 mls/hr Documented by: EVY Vital Signs Vital signs: Vital Signs - 8 hr 04/10/19 08:38 04/10/19 09:22 04/10/19 10:00 Temperature 98 F Pulse Rate 78 76 76 Pulse Rate [Orthostatic Lying] Pulse Rate [Orthostatic Sitting] Pulse Rate [Orthostatic Standing] Respiratory Rate 17 17 11 L Blood Pressure 202/102 H Blood Pressure [Left Arm] 174/95 H 176/86 H Blood Pressure [Orthostatic Lying] Blood Pressure [Orthostatic Sitting] Blood Pressure [Orthostatic Standing] Pulse Oximetry 97 95 96 04/10/19 11:00 Temperature Pulse Rate Pulse Rate [Orthostatic Lying] 79 Pulse Rate [Orthostatic Sitting] 82 Pulse Rate [Orthostatic Standing] 88 Respiratory Rate Blood Pressure Blood Pressure [Left Arm] Blood Pressure [Orthostatic Lying] 179/87 H Blood Pressure [Orthostatic Sitting] 167/95 H Blood Pressure [Orthostatic Standing] 153/88 H Pulse Oximetry MDM - Neuro Symptoms/Deficit Lab Data Result diagrams: 04/10/19 08:40 04/10/19 08:40 Labs: Lab Results 04/10/19 04/10/19 04/10/19 Range/Units 08:40 08:40 08:40 WBC 4.2 L (4.5-11.0) X10^3/uL RBC 4.91 (4.0-5.2) X10^6/uL Hgb 14.3 (12.0-16.0) g/dL Hct 42.2 (36-46) % MCV 86.0 (80-100) fL MCH 29.2 (26-34) PG MCHC 33.9 (30-36) % RDW 15.4 H (11.6-14.8) % Plt Count 126 L (150-400) X10^3/uL Neut % (Auto) 68.5 (50-75) % Lymph % (Auto) 17.7 L (25-40) % [place] % (Auto) 9.2 (3-14) % Eos % (Auto) 3.6 (2-4) % Baso % (Auto) 1.0 (0-2) % Neut # (Auto) 2800 (8800-3403) /uL Lymph # (Auto) 700 L (1947-6537) /uL [place] # (Auto) 400 (0-900) /uL Eos # (Auto) 100 (0-450) /uL Baso # (Auto) 0 (0-100) /uL PT 10.7 (10.1-12.7) SECONDS INR 0.9 (0.9-1.3) APTT 26 L D (26.4-36.2) SECONDS Sodium 140 (137-145) mmol/L Potassium 3.6 (3.4-5.1) mmol/L Chloride 104 (98-107) mmol/L Carbon Dioxide 30 (22-32) mmol/L BUN 19 H (7-17) mg/dL Creatinine 1.10 H (0.52-1.04) mg/dL Estimated GFR 47.8 L (>60) mL/min BUN/Creatinine Ratio 17.3 (6-22) Glucose 95 (80-110) mg/dL Calcium 9.1 (8.4-10.2) mg/dL Urine Color Urine Appearance Urine pH (4.5-8.0) Ur Specific [place] (1.000-1.035) Urine Protein (Negative) Urine Glucose (UA) (Negative) g/dL Urine Ketones (NEGATIVE) Urine Occult Blood (Negative) Urine Nitrate (Negative) Urine Bilirubin (NEGATIVE) Urine Urobilinogen (0.2) E.U./dL Ur Leukocyte Esterase (NEGATIVE) Urine RBC (0-5/HPF) Urine WBC (0-5/HPF) Ur Squamous Epith Cells (0-5/HPF) Amorphous Sediment Urine Bacteria (None) Ur Culture Indicated? U Morph 300 ng/mL cutoff (Negative) Ur Oxycodone Screen (Negative) Urine Methadone Screen (Negative) Ur Barbiturates Screen (Negative) U Tricyclic Antidepress (Negative) Ur Phencyclidine Scrn (Negative) Ur Amphetamines Screen (Negative) U Methamphetamines Scrn (Negative) Ur MDMA Scrn (Ecstasy) (Negative) U Benzodiazepines Scrn (Negative) Urine Cocaine Screen (Negative) U Marijuana (THC) Screen (Negative) 04/10/19 04/10/19 Range/Units 09:08 09:22 WBC (4.5-11.0) X10^3/uL RBC (4.0-5.2) X10^6/uL Hgb (12.0-16.0) g/dL Hct (36-46) % MCV (80-100) fL MCH (26-34) PG MCHC (30-36) % RDW (11.6-14.8) % Plt Count (150-400) X10^3/uL Neut % (Auto) (50-75) % Lymph % (Auto) (25-40) % [place] % (Auto) (3-14) % Eos % (Auto) (2-4) % Baso % (Auto) (0-2) % Neut # (Auto) (2244-3457) /uL Lymph # (Auto) (9801-4339) /uL [place] # (Auto) (0-900) /uL Eos # (Auto) (0-450) /uL Baso # (Auto) (0-100) /uL PT (10.1-12.7) SECONDS INR (0.9-1.3) APTT (26.4-36.2) SECONDS Sodium (137-145) mmol/L Potassium (3.4-5.1) mmol/L Chloride (98-107) mmol/L Carbon Dioxide (22-32) mmol/L BUN (7-17) mg/dL Creatinine (0.52-1.04) mg/dL Estimated GFR (>60) mL/min BUN/Creatinine Ratio (6-22) Glucose (80-110) mg/dL Calcium (8.4-10.2) mg/dL Urine Color Yellow Urine Appearance Clear Urine pH 7.5 (4.5-8.0) Ur Specific [place] 1.010 (1.000-1.035) Urine Protein Negative (Negative) Urine Glucose (UA) Negative (Negative) g/dL Urine Ketones Negative (NEGATIVE) Urine Occult Blood 3+ H (Negative) Urine Nitrate Negative (Negative) Urine Bilirubin Negative (NEGATIVE) Urine Urobilinogen 0.2 (0.2) E.U./dL Ur Leukocyte Esterase Trace H (NEGATIVE) Urine RBC 1-5/hpf (0-5/HPF) Urine WBC 0-1/hpf (0-5/HPF) Ur Squamous Epith Cells 1-5 /hpf (0-5/HPF) Amorphous Sediment 1+ Urine Bacteria None seen (None) Ur Culture Indicated? Cult not indicated U Morph 300 ng/mL cutoff Negative (Negative) Ur Oxycodone Screen Negative (Negative) Urine Methadone Screen Negative (Negative) Ur Barbiturates Screen Negative (Negative) U Tricyclic Antidepress Negative (Negative) Ur Phencyclidine Scrn Negative (Negative) Ur Amphetamines Screen Negative (Negative) U Methamphetamines Scrn Negative (Negative) Ur MDMA Scrn (Ecstasy) Negative (Negative) U Benzodiazepines Scrn Negative (Negative) Urine Cocaine Screen Negative (Negative) U Marijuana (THC) Screen Negative (Negative) Imaging Data CT scan - head: Radiologist's impression: [place] [address] CT Scan Report Signed Patient: Viviane Robin KMR#: [id number] : 9Acct:[id number] Age/Sex: 78 / FDate of Service: 04/10/19 Loc: ED Accession Number: [id number] Procedure: CT head/brain wo con Ordering Provider: Tato Foster D.O. PROCEDURE: CT HEAD/BRAIN WO CON INDICATIONS: stroke, NOt TPA TECHNIQUE: Noncontrast 4.5 mm thick angled axial sections acquired from the foramen magnum to the vertex, with coronal and sagittal reformats. For radiation dose reduction, the following was used: automated exposure control, adjustment of mA and/or kV according to patient size. COMPARISON: [facility], CT, CT HEAD/BRAIN WO CON, 02/21/2019, 10:03. FINDINGS: Image quality: Diagnostic. CSF spaces: Basal cisterns are patent. No extra-axial fluid collections. Ventricles are normal in size and shape. There is mild parenchymal volume loss. Brain: No midline shift. No intracranial masses or hemorrhage. Riley-white matter interface is normal. Areas of low-attenuation are seen within the periventricular and deep white matter of the supratentorial parenchyma similar to the prior study. Skull and face: Calvarium and visualized facial bones are intact, without suspicious lesions. Sinuses: Visualized sinuses and mastoids are clear. IMPRESSION: 1. No acute intracranial hemorrhage. 2. Mild chronic small vessel ischemic changes. Dictated by: Mitch Nuñez M.D. on 04/10/2019 at 7:51 Approved by: Mitch Nuñez M.D. on 04/10/2019 at 7:53 ECG Data Attestation: I personally reviewed and interpreted this ECG as follows: Interpretation: EKG is normal sinus rhythm rate [76 ] and free of any signs of ischemia or ectopy. No ST segmental elevation or depression. No T wave inversions Discharge Plan Departure Patient Disposition: Admitted as Observation Clinical Impression: Acute dehydration, Weakness, Adult failure to thrive Admit Date/Time: 04/10/19 11:46 Admit Provider: Lorene Orellana
--- NOTE | 2019-04-10 15:20 | PC.NURSE ---
Pt admitted to floor at 1430. She is a&ox3 but can be forgetful. Pt was having some weakness yesterday and today and came to the ER. Initially they thought maybe pt had a cva but NIH stroke scale a 0. Pt is incontinent of urine and sometimes know's that she has to use the commode. Pt is a one person assist with walker and is steady. She has hx Parkinson's, o shakes visualized. Dr. Orellana will be into see patient soon.
[2019-04-10] MEDS: CARBIDOPA-LEVODOPA 25/100 TABLET 2 EACH PO ×2 (19:22→22:44)
--- NOTE | 2019-04-10 19:23 | P.HP_ITS ---
History of Present Illness History of Present Illness Date Patient Seen: 04/10/19 Time Patient Seen: 19:23 Chief complaint: Couldn't move, L mild facial droop Narrative: The patient is an 78-year-old female w/ PMHx of HTN, Parkinson's, CKD III, former smoker, frequent falls, lumbar stenosis. Patient states that she woke up earlier in the day and was unable to get out of bed. Reports feeling weak. She used her lifeline to call the EMS. Patient is known to have progressive Parkinson's disease. Patient lives home alone, typically she has a caregiver, however there was not one available today due to this being a Thursday. Upon initial contact with EMS, it was felt that patient has a right sided weakness. On presentation to the ED FAST exam was negative. Patient denies fever and chills. Denies symptoms of URI. She has not experienced a headache, chest pain, palpitations, dizziness, lightheadedness, or syncopal events. She is known to have frequent falls, however denies falling today. Denies abdominal pain, nausea, vomiting, and diarrhea. She reports having constipation at baseline, noting bowel movements 2-3 times per month. States that with most recent use of laxatives she has had prolonged diarrhea. Her appetite is fair, but decreased which is her baseline. Denies signs and symptoms of blood loss. Patient states that her Parkinson's has been getting worse. She follows with Neurology, last seen last week, her next appointment is in 2 weeks. She does not feel there is a change in her neurological status, however does note that her daughter thinks she may have mild dementia and that recently she is being reminded of being forgetful and at times may be seeing things that are not there. She does have a degree of right mouth droop, which she says is chronic. Patient is not entirely sure why she is admitted and expressed that she does not wish to have a prolonged hospital stay with an expectation to be discharged in the morning. ED Presentation & Work-Up VS, 04/10 0922. T 98F BP 202/102 HR 78 RR 17 SpO2 98% on RA Orthostatic BPs checked, negative for orthostasis BPs have trended down without intervention Labs, 04/10 WBC 4.2 HGB 14.3 HCT 42.2 PLT 126 PT 10.7 INR 0.9 aPTT 26 Na 140 K 3.6 Cl 104 Ca 9.1 Glu 95 CO2 30 BUN 19 Cr 1.1 GFR 47.8 BUN:Cr 17.3 UA unremarkable w/ exception of occult blood (3+) and LE (trace) UDS NEGATIVE CXR. Negative for acute cardiopulmonary findings. In ED started on NS Patient History Medical History Arthritis (Chronic) Dementia with Parkinsonism (Acute) Fall from ground level (Resolved 04/2014) Hemopneumothorax (Resolved 04/2014) Hypertension (Chronic) Lumbar spinal stenosis (Chronic) Menopause (Resolved ~1983) Parkinson's disease (Chronic) Peripheral neuropathy (Chronic) Respiratory failure (Resolved 04/2014) Rib fractures (Resolved 04/2014) Urinary incontinence (Chronic) Surgical History History of bladder surgery (Resolved) History of hip replacement (Resolved 2000) History of left cataract surgery (Resolved 12/11/15) History of oophorectomy (Resolved) History of right cataract surgery (Resolved 12/25/15) History of tonsillectomy (Resolved) History of tracheostomy (Resolved 04/2014) Status post appendectomy (Resolved) Status post cholecystectomy (Resolved 2000) Status post hysterectomy (Resolved 1967) Status post laminectomy (Resolved 2010) Family & Social History Family History Mother Breast cancer, female Colorectal cancer Cancer Father Esophageal cancer Alcoholism Parkinson disease Social History: household members Caregiver, on some days of the week Prior Living Arrangements House Safety & Behavioral: Feels Safe in Current Yes Environment Been Physically Hurt or No Threatened By a Person Suicidal Ideation Description None Suicide Plan Description No Plan Tobacco & Substance use: Smoking Status Former smoker alcohol intake current alcohol intake frequency holiday/special occasion Substance Use Type does not use Meds Home Medications and Allergies Home Medications Medication Instructions Recorded Confirmed Type carbidopa ER 50 mg-levodopa 200 mg 1 tab PO BEDTIME tab 06/26/18 04/10/19 History tablet,extended release trospium 20 mg tablet 20 mg PO BID 06/26/18 04/10/19 History rivastigmine tartrate 6 mg PO BID 09/18/18 04/10/19 History melatonin 10 mg capsule 10 mg PO BEDTIME PRN #90 cap 10/21/18 04/10/19 Rx sennosides 8.6 mg tablet 17.2 mg PO QPM 11/05/18 04/10/19 History fluoxetine 20 mg capsule 60 mg PO DAILY #90 cap 02/23/19 04/10/19 Rx carbidopa 25 mg-levodopa 100 mg 2 tab PO QID tab 03/07/19 04/10/19 History tablet saliva substitute combo no.9 15 ml MM BID-QID PRN #1000 ml 04/06/19 04/10/19 Rx Allergies Allergy/AdvReac Type Severity Reaction Status Date / Time Sulfa (Sulfonamide Allergy Severe HIVES Verified 04/10/19 09:13 Antibiotics) [SULFA (SULFONAMIDE ANTIBIOTICS)] vancomycin [VANCOMYCIN] Allergy Severe RASH AND Verified 04/10/19 09:13 BLISTERS codeine [CODEINE] Allergy Mild HEADACHE,VOMITING,MOOD Verified 04/10/19 09:13 CHANGES hydrocodone [HYDROCODONE] Allergy Mild NAUSEA,ITCHING,MOOD Verified 04/10/19 09:13 CHANGES Review of Systems Review of Systems ROS Unobtainable: All systems reviewed & are unremarkable except as noted in HPI and below Exam Vital Signs (past 8 hours): - 04/10/19 13:00 04/10/19 13:30 04/10/19 14:40 Temperature 97.7 F Pulse Rate 88 85 85 Respiratory Rate 16 18 Blood Pressure 158/79 H Blood Pressure [Left Arm] 177/103 H 168/97 H Pulse Oximetry 96 96 96 Oxygen Delivery Method Room Air Oxygen Flow Rate 0 Narrative Exam Narrative: Constitutional: No acute distress, appears stated age, BMI 26.3 Neurologic: Awake. Alert. Oriented to person, place, year, date and president. Able to provide adequate details preceding hospital admission. Tremor present. Rigidity present. Diminished sensation of BLE At times right mild facial droop is noted. No dysarthria or aphasia. No overt unilateral facial droop. Head: NC, AT Eyes: PERRL, EOMI, no scleral icterus Ears: external ears normal, no otorrhea Nose: external nose normal, no rhinorhea or epistaxis Throat: DRY MM, oropharynx w/o exudate Neck: no masses, lymphadenopathy, or JVD Chest / Respiratory: equal chest rise, unlabored effort, no dyspnea or tachypnea at rest, diminished bases Heart / CV: S1S2, murmur present Abdomen / GI: round, NT, ND, hypoactive BS, no organomegaly : no suprapubic tenderness Peripheral / Vascular: warm to touch, DP 1+ d/l, no edema Musc: diminished ROM of upper and lower extremities b/l diminished strength of upper and lower extremities b/l Skin: no ecchymosis or suspicious lesions / ulcers Objective Labs Result Diagrams: 04/10/19 08:40 04/10/19 08:40 Labs: Laboratory Results - last 24 hr 04/10/19 04/10/19 04/10/19 08:40 08:40 08:40 WBC 4.2 L RBC 4.91 Hgb 14.3 Hct 42.2 MCV 86.0 MCH 29.2 MCHC 33.9 RDW 15.4 H Plt Count 126 L Neut % (Auto) 68.5 Lymph % (Auto) 17.7 L [place] % (Auto) 9.2 Eos % (Auto) 3.6 Baso % (Auto) 1.0 Neut # (Auto) 2800 Lymph # (Auto) 700 L [place] # (Auto) 400 Eos # (Auto) 100 Baso # (Auto) 0 PT 10.7 INR 0.9 APTT 26 L D Sodium 140 Potassium 3.6 Chloride 104 Carbon Dioxide 30 BUN 19 H Creatinine 1.10 H Estimated GFR 47.8 L BUN/Creatinine Ratio 17.3 Glucose 95 Calcium 9.1 Urine Color Urine Appearance Urine pH Ur Specific [place] Urine Protein Urine Glucose (UA) Urine Ketones Urine Occult Blood Urine Nitrate Urine Bilirubin Urine Urobilinogen Ur Leukocyte Esterase Urine RBC Urine WBC Ur Squamous Epith Cells Amorphous Sediment Urine Bacteria Ur Culture Indicated? U Morph 300 ng/mL cutoff Ur Oxycodone Screen Urine Methadone Screen Ur Barbiturates Screen U Tricyclic Antidepress Ur Phencyclidine Scrn Ur Amphetamines Screen U Methamphetamines Scrn Ur MDMA Scrn (Ecstasy) U Benzodiazepines Scrn Urine Cocaine Screen U Marijuana (THC) Screen 04/10/19 04/10/19 09:08 09:22 WBC RBC Hgb Hct MCV MCH MCHC RDW Plt Count Neut % (Auto) Lymph % (Auto) [place] % (Auto) Eos % (Auto) Baso % (Auto) Neut # (Auto) Lymph # (Auto) [place] # (Auto) Eos # (Auto) Baso # (Auto) PT INR APTT Sodium Potassium Chloride Carbon Dioxide BUN Creatinine Estimated GFR BUN/Creatinine Ratio Glucose Calcium Urine Color Yellow Urine Appearance Clear Urine pH 7.5 Ur Specific [place] 1.010 Urine Protein Negative Urine Glucose (UA) Negative Urine Ketones Negative Urine Occult Blood 3+ H Urine Nitrate Negative Urine Bilirubin Negative Urine Urobilinogen 0.2 Ur Leukocyte Esterase Trace H Urine RBC 1-5/hpf Urine WBC 0-1/hpf Ur Squamous Epith Cells 1-5 /hpf Amorphous Sediment 1+ Urine Bacteria None seen Ur Culture Indicated? Cult not indicated U Morph 300 ng/mL cutoff Negative Ur Oxycodone Screen Negative Urine Methadone Screen Negative Ur Barbiturates Screen Negative U Tricyclic Antidepress Negative Ur Phencyclidine Scrn Negative Ur Amphetamines Screen Negative U Methamphetamines Scrn Negative Ur MDMA Scrn (Ecstasy) Negative U Benzodiazepines Scrn Negative Urine Cocaine Screen Negative U Marijuana (THC) Screen Negative Assessment & Plan Assessment & Plan narrative: Patient is being admitted under observation status for weakness and dehydration Dehydration, acute, present on admission, active - NS @ 75 ml/hr x1L, then d/c Weakness, acute on chronic, present on admission active - Suspected to be progression of Parkinson's disease, exacerbated by acute dehydration - IVF, correct dehydration - Consider PT evaluation prior to discharge to ensure patient will be able to function at home Parkinson's disease, chronic, present on admission, stable /progressive - continue PULMONARY PHYSICAL THERAPIST carbidopa levodopa and rivastigmine Essential hypertension, chronic, present on admission, active Presented in a hypertensive state, BP 202/102 HR 78, BP has trended down progressively - Not on any anti-hypertensive agents - Monitor/trend BP, will plan to treat if BP is greater... SBP > 180 mmHg and DBP > 100 mmHg Thrombocytopenia, chronic, present on admission, stable - PLT 126, improved. No active s/s of bleeding. Urinary incontinence and overactive bladder, chronic, present on admission, stable - continue trospium 20 mg twice daily CKD Stage IIIb, chronic, present on admission, stable - renal function baseline Depression, chronic, present on admission, stable - denies harmful ideation toward self and others - continue fluoxetine 60 mg daily Code status discussed. Full code. Patient's daughter is the designated healthcare proxy. POLST on file. Home medications reviewed and reconciled accordingly. VTE prophylaxis w/ SCDs and SQ lovenox Quality VTE Deep Vein Thrombosis/Pulmonary Embolism Present on Admission: No
[2019-04-10] MEDS: SODIUM CHLORIDE 0.9% 1,000 ML 75 ML IV (21:48)
[2019-04-11] VITALS: BP 158/101; PULSE 78; RESP 18; TEMP 36.7; O2SAT 95
[2019-04-11] MEDS: DEXTROSE 5%-0.9% NS 1,000 ML 75 ML IV (04:42)
[2019-04-11] MEDS: ONDANSETRON 4 MG/2 ML INJ IV (04:42)
[2019-04-11 06:00] VITALS: BP 177/89; PULSE 83; RESP 20; TEMP 36.6; O2SAT 93
[2019-04-11] MEDS: CARBIDOPA-LEVODOPA 25/100 TABLET 2 EACH PO ×2 (06:54→11:57)
--- NOTE | 2019-04-11 06:56 | PC.NURSE ---
Pt with rigidity due to Parkinson's. Diagnosis HTN, provider notified of BP overnight, no new orders. Pt without s/s of hypertension, denies dizziness at rest or with transfer to [facility]. Denies all pain. Pt with overactive bladder and incontinence. 2 person transfer to B[facility]. Pt attempts to get OOB unassisted, bed alarm on at all times. Full fall precautions in place. Recent falls at home. Bruising to left side. Pt sipping water at bedside, HOB elevated for safe PO intake. Pt with meds in Pharmacy. Administered first dose of Sinemet at 0700 per pt request. Slight forgetfullness, not remembering this RN with each pt check. Chronic right mouth droop. q6hr neuro checks intact. Denies vision changes, headache, editor school photograph equal. Pt with nausea x1, BG checked at ~0300, 89. Provider changed IVF from NS to D5 NS at 75cc/hr x 1 bag which is currently infusing. Pt lives alone with caregiver that helps during day. Pt stated she would like to go home today. Offered reassurance and explained POC while in hospital.
[2019-04-11] MEDS: FLUoxetine 20 MG CAPSULE 60 MG PO (08:55)
--- NOTE | 2019-04-11 09:33 | PC.NURSE ---
Addendum entered by Marlee Cloud R.N. 04/11/19 15:01: DC - called pt dtr and when arrived, reviewed dc instructions with pt and dtr, no new scripts, ret pt own medications from pharmacy, has clothing, glasses, saline lock dc'd, belongings gathered and student nurse Catherine escorted to dtr's car. Original Note: AM NOTE - pt is alert, oriented hospital, states I'm feeling good I want to go home, joe breakfast, denies nausea, active bt, healing bruise l hip, bandaid to l wrist cdi, skin thin, fragile, hr reg 96 w/murmur, states has fallen at home at times, that it just happens, states hx neuropathy feet, Dr. Cevallos in and pt will have PT eval and then dc home later.
--- NOTE | 2019-04-11 10:12 | CM.DANOTE ---
DCP: Case received, EMR reviewed and met with patient. Introduced self and role. Was able to meet with patient and obtain baseline health and activity level at home. DCP template/assessment completed with information currently available. Patient is an 78 year old female who admitted yesterday morning to the care of the hospitalist team. PCP: MELIDA Saleem. Payer: confirmed: Medicare/[employer]. Patient came to the hospital secondary to increased weakness, was having trouble getting out of bed. Patient has a life line at home, and had used it to call EMT, and they brought her to the hospital. Patient lives alone, has two daughters, Miguel Quezada, as well as Ida Bee. Patient stated they are both supportive, but Miguel is the main contact. Patient mentioned that she really wants to go home today. Confirmed that she does use a walker at home, and is independent, but not driving. Patient has history of Parkinson's, as well. Confirmed that she can do her own meals, she has a microwave, and her daughter will bring meals as well. P: DCP to continue to follow for any needs. She will be working with P.T before going home. Pamela Suarez RN/[employer] Equipment
[2019-04-11 12:00] VITALS: BP 138/76; PULSE 87; RESP 14; TEMP 36.4; O2SAT 96
--- NOTE | 2019-04-11 12:17 | PT.IIE ---
Surgical History (Last Reviewed 04/10/19 @ 19:51 by MELIDA Buck) History of bladder surgery (Resolved) History of hip replacement (Resolved 2000) History of left cataract surgery (Resolved 12/11/15) History of oophorectomy (Resolved) History of right cataract surgery (Resolved 12/25/15) History of tonsillectomy (Resolved) History of tracheostomy (Resolved 04/2014) Status post appendectomy (Resolved) Status post cholecystectomy (Resolved 2000) Status post hysterectomy (Resolved 1967) Status post laminectomy (Resolved 2010) Medical History (Last Reviewed 04/10/19 @ 19:51 by MELIDA Buck) Arthritis (Chronic) Dementia with Parkinsonism (Acute) Fall from ground level (Resolved 04/2014) Hemopneumothorax (Resolved 04/2014) Hypertension (Chronic) Lumbar spinal stenosis (Chronic) Menopause (Resolved ) Parkinson's disease (Chronic) Peripheral neuropathy (Chronic) Respiratory failure (Resolved 04/2014) Rib fractures (Resolved 04/2014) Urinary incontinence (Chronic) Physical Therapy Inpatient Evaluation/Re-Eval M1 PT/OT-IP Prior Functional Status Start: 04/11/19 12:39 Freq: NEEDED Status: Active Protocol: Document 04/11/19 12:17 DLM (Rec: 04/11/19 13:00 DLM [id number]) Medical Review Prior Functional Status Medical History Reviewed Yes Communication WFL, she takes pills with applesauce Mobility and Gait Independent in her house with 4WW, hx of falls, she has a shuffling gait pattern Activities of Daily Living and IADL's Needs assist for dressing, bathing, homemaking, cooking Prior Functional Level (Other details) hx of falls at home Social History Household Members caregiver,none Living Arrangements House Number of Floors (Floors) One Floor Number of Stairs To Enter/Railing? ramp to enter Home Environment Standard Height Toilet Home Equipment Four Wheel Walker,Manual Wheelchair,Bedside Commode, Raised Toilet Seat Without Armrests,Shower Seat with Backrest,Lift Recliner Additional Social History Comment she has caregivers at her house daily, some days they come morning and evening, they help her get up in the morning, if she has trouble getting to bed on her own she just sleeps in her recliner M2 PT-IP Current Condition Start: 04/11/19 12:39 Freq: NEEDED Status: Active Protocol: Document 04/11/19 12:17 DLM (Rec: 04/11/19 13:00 DL [id number]) Physical Therapy Current Condition Current Condition Evaluation Date 04/11/19 Treatment Diagnosis Weakness, Parkinsons Onset Date 04/10/19 Precautions Other Precautions fall risk, chair and bed alarm in use M3 PT-IP Subjective Start: 04/11/19 12:39 Freq: NEEDED Status: Active Protocol: Document 04/11/19 12:17 DLM (Rec: 04/11/19 13:00 DL [id number]) Subjective Physical Therapy Visit Type Type Initial Evaluation Visit Start Time 11:50 Visit Stop Time 12:17 Total Visit Minutes 27 Number of WINDOW INSTALLER Visits 0 Physical Therapy Visit Comments Patient Comments she is concerned about taking her Parkinsons medication Patient Goals Return home Therapy Pain Assessment Pain Present Pain Present Denied Pain M4 PT-IP Mobility and Gait Start: 04/11/19 12:39 Freq: NEEDED Status: Active Protocol: Document 04/11/19 12:17 DLM (Rec: 04/11/19 13:00 DL [id number]) PT-Bed Mobility Assessment Scooting Scooting to Edge of Bed Minimal Assistance PT-Transfer Assessment Sit to and From Stand Sit to and from Stand Moderate Assistance,Use of Upper Extremities Equipment Transfer Assistive Device Gait Belt,Front Wheeled Walker Transfers Transfer Destination Chair Transfer Technique Stand Step Pivot Transfer Ability Level of Assist Standby Assistance,Contact Guard Assistance Comments Mobility Comments posterior lean with initial standing that resolved with time in static standing, pt is aware Gait Assessment Gait Gait Assistance Required: Standby Assistance Distance (Feet) 150 Assistive Devices Assistive Device Gait Belt,Front Wheeled Walker Gait Deviations General Gait Pattern Decreased Stride Length, Decreased Feet Clearance, Festinating,Flexed Trunk, Narrow Based Gait Factors Limiting Gait Function Factors Limiting Gait Function Decreased Activity Tolerance, Incoordination,Poor Balance Comments Gait Comments pt got up to recliner with nursing, pt ambulates better with her normal shoes on, she has a typical Parkinsons pattern to her gait, she gets too far away from her fWW intermittently and can correct with verbal reminders Stair Climbing Assessment Comments Stair Climbing Comments pt has a ramp to enter her house PT-Balance Assessment Sitting Balance and Reactions Static Sitting Balance Ability Good Dynamic Sitting Balance Ability Good Standing Balance and Reactions Static Standing Balance Ability Fair Dynamic Standing Balance Ability Fair Device Used FWW Balance Tests Single Limb Standing unable M5 PT-IP Objective Assessments Start: 04/11/19 12:39 Freq: NEEDED Status: Active Protocol: Document 04/11/19 12:17 DLM (Rec: 04/11/19 13:00 DLM [id number]) Orientation Orientation/Cognition Level of Alertness Alert Orientation Name,Age,Birthday,Day of Week, Place Language Function Ability No Deficits Noted Safety Awareness Decreased Safety Awareness Gross Range of Motion Upper Extremity ROM Assessment Within Functional Limits Lower Extremity ROM Assessment Within Functional Limits Strength Upper Extremity Strength Assessment Within Functional Limits Lower Extremity Strength Assessment Within Functional Limits Coordination Assessment Gross Coordination Gross Coordination Impaired Assessment Foot Tapping Test Moderate Impairment Heel on Cheng Test Moderate Impairment Sensation Assessment Sensation Gross Sensation Right LE Impaired,Left LE Impaired Sensation Description Numbness Comments Sensation Comments hx neuropathy Muscle Tone Muscle Tone WNL No Comments Muscle Tone Comments mild to moderate rigidity, mild tremors today M6 PT-IP Treatment Start: 04/11/19 12:39 Freq: NEEDED Status: Active Protocol: Document 04/11/19 12:17 DLM (Rec: 04/11/19 13:00 DLM [id number]) Physical Therapy Treatment Education Education Provided Safety M7 PT-IP Assessment and Plan Start: 04/11/19 12:39 Freq: NEEDED Status: Active Protocol: Document 04/11/19 12:17 DLM (Rec: 04/11/19 13:00 DLM [id number]) PT Summary Assessment and Plan Potential Rehabilitation Potential Good Status of Condition at Evaluation Evolving Summary Impairments Balance,Coordination,Cognition ,Bed Mobility,Transfers,Gait, Activity Tolerance Assessment Summary Viviane is alert and reports feeling better today. She was able to ambulate in the [place] with fWW today. Her Parkinsons affects all of her movements and mobility. Pt reports increased difficulty moving in unfamiliar environment at the hospital. Pt has equipment at home to assist with mobility and caregiver support daily. Her Parkinsons places her at increased fall risk. Pt is clear that she wants to return home. Recommend home health PT to assess her home safety. Goals Bed Mobility Goal Independent Transfer Goal Independent,Front Wheeled Walker Gait Goal Independent,Front Wheel Walker Gait Distance 50 Days to Meet Goals 2 Frequency of Treatment Frequency Of Treatment Twice a Day Treatment Plan Physical Therapy Treatment Plan Bed Mobility Training,Transfer Training,Gait Training, Therapeutic Exercise,Balance Retraining,Discharge Planning, Neuromuscular Re-ed, Coordination Retraining Recommendations To Nursing Amount of Assist Needed 1 Person Assist,2 Person Assist Discharge Recommendations PT Discharge Recommendations Home with Assistance,Home Health Other Discharge Recommendations pt does not want SNF, She appears to be barely managing at home, 15/12 assist would better manage her fall risks at home
[2019-04-11] MEDS: RIVASTIGMINE TARTRATE 6 MG 6 EACH PO (13:54)
--- NOTE | 2019-04-11 19:25 | P.DS_ITS ---
History of Present Illness History of Present Illness Chief complaint: Couldn't move, L mild facial droop Narrative: The patient is an 78-year-old female w/ PMHx of HTN, Parkinson's, CKD III, former smoker, frequent falls, lumbar stenosis. Patient states that she woke up earlier in the day and was unable to get out of bed. Reports feeling weak. She used her lifeline to call the EMS. Patient is known to have progressive Parkinson's disease. Patient lives home alone, typically she has a caregiver, however there was not one available today due to this being a Thursday. Upon initial contact with EMS, it was felt that patient has a right sided weakness. On presentation to the ED FAST exam was negative. Patient denies fever and chills. Denies symptoms of URI. She has not experienced a headache, chest pain, palpitations, dizziness, lightheadedness, or syncopal events. She is known to have frequent falls, however denies falling today. Denies abdominal pain, nausea, vomiting, and diarrhea. She reports having constipation at baseline, noting bowel movements 2-3 times per month. States that with most recent use of laxatives she has had prolonged diarrhea. Her appetite is fair, but decreased which is her baseline. Denies signs and symptoms of blood loss. Patient states that her Parkinson's has been getting worse. She follows with Neurology, last seen last week, her next appointment is in 2 weeks. She does not feel there is a change in her neurological status, however does note that her daughter thinks she may have mild dementia and that recently she is being reminded of being forgetful and at times may be seeing things that are not there. She does have a degree of right mouth droop, which she says is chronic. Patient is not entirely sure why she is admitted and expressed that she does not wish to have a prolonged hospital stay with an expectation to be discharged in the morning. Discharge Providers Provider Date of admission: 04/10/19 11:46 Discharge Date: 04/11/19 Primary care physician: MELIDA Saleem Consults: 04/11/19 02:19 Consult to Physical Therapy Evaluate & Treat Comment: ensure patient able to function at home on d/c Physician Instructions: Evaluate and Treat Discharge provider: Dixon Cevallos MD Summary Hospital Course Discharge Diagnosis: 1. Acute dehydration 2. Weakness 3. Parkinson's disease 4. Acute hypertension, resolved 5. Chronic kidney disease stage 3 6. Depression Hospital Course: Patient was admitted for overnight observation and dehydration was treated with IV fluids. She feels back at baseline. She did note missing a Sinemet pill yesterday morning due to overslept. She was evaluated by PT and noted to be at high fall risk even with use of walker. However this is patient's baseline and she adamantly refused to stay in the hospital or to go to a rehab facility. She was acutely hypertensive on admission but her blood pressures normalized without intervention. She remained otherwise stable. She is discharged home back on her routine medications. She will resume service w ith her caregivers. Status at Discharge Cognitive/behavioral status at discharge: oriented Functional status at discharge: uses cane/walker Overall status at discharge: patient is back to baseline Exam Vital Signs (past 8 hours): - 04/11/19 12:00 Temperature 97.6 F Pulse Rate 87 Respiratory Rate 14 Blood Pressure 138/76 Pulse Oximetry 96 Oxygen Delivery Method Room Air Oxygen Flow Rate 0 Objective Labs Result Diagrams: 04/10/19 08:40 04/10/19 08:40 Discharge Plan Discharge Plan Patient Disposition: Home Discharge orders & Medications Prescriptions: Continued melatonin 10 mg capsule 10 mg PO BEDTIME PRN (Reason: sleep) Qty: 90 RF: 1 fluoxetine 20 mg capsule 60 mg PO DAILY Qty: 90 RF: 2 carbidopa-levodopa 50-200 mg tablet extended release 1 tab PO BEDTIME RF: 0 trospium 20 mg tablet 20 mg PO BID RF: 0 sennosides [senna] 8.6 mg tablet 17.2 mg PO QPM RF: 0 carbidopa-levodopa 25-100 mg tablet 2 tab PO QID RF: 0 Biotene Dry Mouth Oral Rinse Mouthwash 15 ml MM BID-QID PRN (Reason: dry mouth) Qty: 1000 RF: 3 rivastigmine tartrate 6 mg capsule 6 mg PO BID RF: 0 Follow up/Referrals: Olimpia Wilson ARNP [Primary Care Provider] - Diet/Activity/Treatments Diet: Diet as Tolerated Visit Report/Discharge Packet Instructions: DI for Dehydration -- Adult, How to Prevent Falls, DI for Muscle Weakness Discharge Data Primary Care Provider: Olimpia Wilson Attending Provider: Lorene Orellana Admit Date/Time: 04/10/19 11:46 Discharges patient from system. Discharge Date/Time: 04/11/19 15:03 Quality VTE Deep Vein Thrombosis/Pulmonary Embolism Present on Admission: No
--- NOTE | 2019-04-27 11:42 | PC.NURSE ---
Late entry: Dextrose stopped 04/11 3772
== END 2019-04-11 15:03 | disposition home or self-care (01) ==
LOC: ED 11:34 → AC 11:47
PROVIDERS: Admitting Provider Internal Medicine; Emergency Provider Emergency Medicine; PCP Nurse Practitioner; Visit Provider Internal Medicine
DX: E86.0 Dehydration (principal); R29.818 Other symptoms and signs involving the nervous system; R53.1 Weakness; G20 Parkinson's disease; I10 Essential (primary) hypertension; N18.3 Chronic kidney disease, stage 3 (moderate); F32.9 Major depressive disorder, single episode, unspecified; Z87.891 Personal history of nicotine dependence
CPT/HCPCS: 70450; 71045; 80048; 80305; 81001; 82962; 85025; 85610; 85730; 93005; 96361; 96374; 97162; 99285; G0378; J2405

== ENCOUNTER 2019-05-24 11:20 | Emergency (ER) | payer MEDICARE, SELFPAY ==
[2019-04-10 15:21] VITALS: BMI 26.2
[2019-05-24 11:23] VITALS: BP 157/93; PULSE 79; RESP 16; O2SAT 98
[2019-05-24 13:15] VITALS: BP 139/92; PULSE 77; RESP 16; O2SAT 99
[2019-05-24 13:18] LABS: Add Manual Diff / Slide Review NO; Basophils Absolute Auto 0 /uL (0-100); Basophils Percent Auto 0.8 % (0-2); Eosinophils Absolute Auto 100 /uL (0-450); Eosinophils Percent Auto 2.9 % (2-4); Hematocrit 42.3 % (36-46); Hemoglobin 14.2 g/dL (12.0-16.0); Lymphocytes Absolute Auto 500 /uL (1100-4500); Lymphocytes Percent Auto 11.4 % (25-40); Mean Corpuscular HGB Conc 33.5 % (30-36); Mean Corpuscular Hemoglobin 29.5 PG (26-34); Monocytes Absolute Auto 400 /uL (0-900); Neutrophils Absolute Auto 3600 /uL (1500-7000); Neutrophils Percent Auto 76.9 % (50-75); Platelet Count 118 X10^3/uL (150-400); White Blood Cell Count 4.7 X10^3/uL (4.5-11.0)
[2019-05-24 13:30] LABS: Alanine Aminotransferase 5 IU/L (<35); Albumin 3.7 g/dL (3.5-5.0); Albumin Globulin Ratio 1.3 (1.0-2.8); Alkaline Phosphatase 74 U/L (38-126); Aspartate Aminotransferase 19 IU/L (14-36); BUN Creatinine Ratio 23.6 (6-22); Bilirubin Total 1.1 mg/dL (0.2-1.3); Blood Urea Nitrogen 26 mg/dL (7-17); Calcium 9.1 mg/dL (8.4-10.2); Carbon Dioxide 30 mmol/L (22-32); Chloride 104 mmol/L (98-107); Estimated Glomerular Filt Rate 47.8 mL/min (>60); Globulin 2.8 g/dL (1.7-4.1); Glucose 100 mg/dL (80-110); HEMOLYSIS < 15 (0-50); Potassium 3.8 mmol/L (3.4-5.1); Sodium 141 mmol/L (137-145); Total Protein 6.5 g/dL (6.3-8.2)
--- NOTE | 2019-05-24 13:57 | ED_ITS ---
HPI - Altered Mental Status General Chief Complaint: Altered Mental Status Stated Complaint: Altered mental status Time Seen by Provider: 05/24/19 11:20 Source: EMS Mode of arrival: EMS Limitations: no limitations History of Present Illness HPI narrative: Patient is brought to the emergency department by EMS after c alling for a ?fall? and stating that she had blood spurting everywhere. Medics state that when they arrived, the patient was calmly sitting in her chair. They stated that they have been called to the patient's house multiple times for various complaints of intruders and other emergent situations, only to find that the patient is calmly at her home. She is known to have dementia, but has intensive home help, including a nighttime caregiver and various day providers, as well. Medics state the house was tidy and clean. The patient herself denies any complaints. She states she does not know why she was brought to the emergency department. She denies chest pain and abdominal pain specifically. No shortness breath. She cannot recall any recent illnesses. No other complaints at this time. Related Data Home Medications Medication Instructions Recorded Confirmed carbidopa ER 50 mg-levodopa 200 mg 1 tab PO BEDTIME tab 06/26/18 05/24/19 tablet,extended release rivastigmine tartrate 6 mg PO BID 09/18/18 05/24/19 sennosides 8.6 mg tablet 17.2 mg PO QPM 11/05/18 05/24/19 carbidopa 25 mg-levodopa 100 mg 2 tab PO QID tab 03/07/19 05/24/19 tablet fluoxetine 60 mg PO DAILY 05/24/19 05/24/19 Previous Rx's Medication Instructions Recorded melatonin 10 mg capsule 10 mg PO BEDTIME PRN #90 cap 10/21/18 saliva substitute combo no.9 15 ml MM BID-QID PRN #1000 ml 04/06/19 trospium 20 mg tablet 20 mg PO BID #180 tab 05/02/19 ciprofloxacin HCl [Cipro] 500 mg PO BID #14 tab 05/24/19 Allergies Allergy/AdvReac Type Severity Reaction Status Date / Time Sulfa (Sulfonamide Allergy Severe HIVES Verified 05/24/19 11:53 Antibiotics) [SULFA (SULFONAMIDE ANTIBIOTICS)] vancomycin [VANCOMYCIN] Allergy Severe RASH AND Verified 05/24/19 11:53 BLISTERS codeine [CODEINE] Allergy Mild HEADACHE,VOMITING,MOOD Verified 05/24/19 11:53 CHANGES hydrocodone [HYDROCODONE] Allergy Mild NAUSEA,ITCHING,MOOD Verified 05/24/19 11:53 CHANGES Review of Systems Constitutional Constitutional: Denies chills, Denies fatigue, Denies fever(s), Denies frequent falls, Denies lethargy and Denies weakness Eyes Eyes: Denies change in vision, Denies eye discharge, Denies irritation and Denies loss of vision ENT Ears, Nose, Mouth, and Throat: Denies change in voice, Denies dizziness, Denies neck pain, Denies sore throat and Denies throat swelling Cardiovascular Cardiovascular: Denies chest pain, Denies irregular heart rhythm, Denies lightheadedness, Denies palpitations, Denies dyspnea, Denies dyspnea on exertion and Denies orthopnea Respiratory Respiratory: Denies cough, Denies dyspnea, Denies dyspnea on exertion and Denies wheezing Gastrointestinal Gastrointestinal: Denies abdominal pain, Denies change in bowel habits, Denies diarrhea, Denies nausea and Denies vomiting Genitourinary Genitourinary: Denies hematuria, Denies flank pain, Denies urinary incontinence and Denies urinary urgency Musculoskeletal Musculoskeletal: Denies back pain, Denies muscle weakness, Denies neck pain, Denies numbness and Denies tingling Integumentary/Breasts Skin/Breast: Denies pruritus, Denies erythema, Denies rash and Denies wounds Neurologic Neurologic: Denies behavioral changes, Denies confusion, Denies dizziness, Denies frequent falls, Denies loss of vision, Denies numbness, Denies tingling and Denies weakness Psychiatric Psychiatric: Denies anxiety, Denies behavioral changes, Denies confusion, Denies depression, Denies homicidal ideation and Denies suicidal ideation Endocrine Endocrine: Denies fatigue, Denies flushing and Denies palpitations Hematologic/Lymphatic Hematologic/Lymphatic: Denies easy bruising Allergic/Immunologic Allergic/Immunologic: Denies urticaria, Denies throat swelling and Denies wheezing Patient History Medical History Abnormal Pap smear of cervix (Resolved) Allergies (Chronic) Arthritis (Chronic) Benign essential tremor (Chronic) Chicken pox (Resolved) Dementia with Parkinsonism (Acute) Dry mouth (Acute) Fall from ground level (Resolved 04/2014) Fibroids (Inactive) Foot pain (Chronic) Hallucinations, unspecified (Acute) Headache (Chronic) Hearing loss (Chronic) Heavy menstrual period (Inactive) Hemopneumothorax (Resolved 04/2014) Hypertension (Chronic) Lumbar spinal stenosis (Chronic) Measles (Resolved) Menopause (Resolved ~1983) Migraines (Chronic) Mumps (Resolved) Parkinson's disease (Chronic) Peripheral neuropathy (Chronic) Respiratory failure (Resolved 04/2014) Rib fractures (Resolved 04/2014) Seizures (Chronic ~1960) Shoulder pain (Chronic) Urinary incontinence (Chronic) Vision disorder (Chronic) Surgical History Anesthesia (Resolved) History of bladder surgery (Resolved) History of hip replacement (Resolved 2000) History of left cataract surgery (Resolved 12/11/15) History of oophorectomy (Resolved) History of oral surgery (Resolved) History of right cataract surgery (Resolved 12/25/15) History of tonsillectomy (Resolved) History of tracheostomy (Resolved 04/2014) Status post appendectomy (Resolved) Status post cholecystectomy (Resolved 2000) Status post hysterectomy (Resolved 1967) Status post laminectomy (Resolved 2010) Family History Mother Breast cancer, female Colorectal cancer Cancer Hypertension Stroke Father Esophageal cancer Alcoholism Parkinson disease Stroke Social History household members: caregiver and none Smoking Status: Former smoker alcohol intake: current substance use type: does not use Smoking Status: Former smoker alcohol intake frequency: holidays/special occasions only Substance Use Type: does not use Exam Initial Vital Signs Initial Vital Signs: Vital Signs Pulse Rate 79 05/24/19 11:23 Respiratory Rate 16 05/24/19 11:23 Blood Pressure 157/93 H 05/24/19 11:23 Pulse Oximetry 98 05/24/19 11:23 Const General: cooperative and well developed Nutritional Appearance: well nourished Orientation: alert, awake, oriented to person and oriented to place (?Hospital?) [facility] Head: normocephalic and atraumatic Ears: external ears normal Nose: external nose normal and No nasal discharge Face and sinus: face symmetric and No dry mucous membranes Mouth: oral mucosae normal and moist mucous membranes Teeth and gingiva: dentition normal Eyes General: appearance normal, both eyes and all related structures Eyelids: eyelids normal Conjunctivae: conjunctivae normal Sclera: sclerae normal Pupils: PERRL EOM: EOM intact bilaterally Neck Neck: normal visual inspection, trachea midline, No lymphadenopathy, No midline deformity and No JVD Lymphatic: No lymphedema Other: No C-spine tenderness or step-off. Chest Chest: normal inspection of the chest Resp Effort & Inspection: normal respiratory effort, able to speak in complete sentences, no respiratory distress and no use of accessory muscles Auscultation: clear to auscultation bilaterally, no rales, no rhonchi and no wheezes Cardio Rate: regular rate Rhythm: regular rhythm Heart Sounds: no click, no gallops, no murmurs and no rubs Pulses: normal peripheral pulses GI Inspection: non-distended Palpation: soft, no hepatosplenomegaly, No guarding, No pulsatile mass and No tender Back/Spine/Pelvis Back: No CVA tenderness Cervical Spine: cervical ROM normal and No pain with cervical ROM Thoracic/Lumbar Spine: thoracic and lumbar spine normal to inspection Skin General: no rashes or lesions noted, No jaundice and No petechiae Neuro General: alert, awake and no focal motor deficits Cranial Nerves: CN's II-XI intact bilaterally Cognition: abnormal cognition (Confused, but able to answer questions coherently) Speech: speech normal Motor: muscle tone normal throughout Sensory Exam: no sensory deficits noted (Grossly) Extrem Other: No tenderness or step-off. Psych Appearance: well kempt Mental Status: mental status grossly normal Attitude: cooperative Thought Content: normal and suicidality Judgment: judgment good Course Course Course Narrative: The patient was worked up in the emergency department for potential causes of increased confusion or hallucinations. Workup in the emergency department was found to be negative. The patient's exam did not indicate any trauma, and at this point, I felt she was stable for discharge home. The family was agreeable to this plan, and daughter stated to nursing staff that patient had at this time adequate help at home, including her nighttime caregiver. The usual indications for return have been discussed with the family. Patient is calm and cooperative. Orders Ordered: Discontinued Medications Ciprofloxacin (Cipro) 500 mg PO NOW ONE Stop: 05/24/19 15:48 Last Admin: 05/24/19 16:37 Dose: 500 mg Documented by: BEVERLY Sodium Chloride (Normal Saline 0.9%) 1,000 mls @ 1,000 mls/hr IV BOLUS ONE Stop: 05/24/19 13:10 Last Infusion: 05/24/19 16:37 Dose: 0 mls/hr Documented by: Admin: 05/24/19 14:16 Dose: 1,000 mls/hr Documented by: BEVERLY Vital Signs Vital signs: Vital Signs - 8 hr 05/24/19 11:23 Pulse Rate 79 Respiratory Rate 16 Blood Pressure 157/93 H Pulse Oximetry 98 MDM - Altered Mental Status Medical Records Attestation: I reviewed the patient's medical records. Lab Data Attestation: I reviewed the patient's lab results. Result diagrams: 05/24/19 13:13 05/24/19 13:13 Labs: Lab Results 05/24/19 05/24/19 05/24/19 Range/Units 13:13 13:13 15:00 WBC 4.7 (4.5-11.0) X10^3/uL RBC 4.80 (4.0-5.2) X10^6/uL Hgb 14.2 (12.0-16.0) g/dL Hct 42.3 (36-46) % MCV 88.0 (80-100) fL MCH 29.5 (26-34) PG MCHC 33.5 (30-36) % RDW 15.0 H (11.6-14.8) % Plt Count 118 L (150-400) X10^3/uL Neut % (Auto) 76.9 H (50-75) % Lymph % (Auto) 11.4 L (25-40) % [place] % (Auto) 8.0 (3-14) % Eos % (Auto) 2.9 (2-4) % Baso % (Auto) 0.8 (0-2) % Neut # (Auto) 3600 (4496-5456) /uL Lymph # (Auto) 500 L (0107-1004) /uL [place] # (Auto) 400 (0-900) /uL Eos # (Auto) 100 (0-450) /uL Baso # (Auto) 0 (0-100) /uL Sodium 141 (137-145) mmol/L Potassium 3.8 (3.4-5.1) mmol/L Chloride 104 (98-107) mmol/L Carbon Dioxide 30 (22-32) mmol/L BUN 26 H (7-17) mg/dL Creatinine 1.10 H (0.52-1.04) mg/dL Estimated GFR 47.8 L (>60) mL/min BUN/Creatinine Ratio 23.6 H (6-22) Glucose 100 (80-110) mg/dL Calcium 9.1 (8.4-10.2) mg/dL Total Bilirubin 1.1 (0.2-1.3) mg/dL AST 19 (14-36) IU/L ALT 5 (<35) IU/L Alkaline Phosphatase 74 (38-126) U/L Total Protein 6.5 (6.3-8.2) g/dL Albumin 3.7 (3.5-5.0) g/dL Globulin 2.8 (1.7-4.1) g/dL Albumin/Globulin Ratio 1.3 (1.0-2.8) Urine Color Yellow Urine Appearance Cloudy Urine pH 7.0 (4.5-8.0) Ur Specific [place] 1.010 (1.000-1.035) Urine Protein Trace H (Negative) Urine Glucose (UA) Negative (Negative) g/dL Urine Ketones Negative (NEGATIVE) Urine Occult Blood 2+ H (Negative) Urine Nitrate Positive (Negative) Urine Bilirubin Negative (NEGATIVE) Urine Urobilinogen 0.2 (0.2) E.U./dL Ur Leukocyte Esterase 3+ H (NEGATIVE) Urine RBC None seen (0-5/HPF) Urine WBC >100/hpf H (0-5/HPF) Ur Squamous Epith Cells 0-1 /hpf (0-5/HPF) Urine Bacteria Many (>30) H (None) Ur Culture Indicated? Specimen cultured Discharge Plan Departure Patient Disposition: Home Clinical Impression: Urinary tract infection Qualifiers: Urinary tract infection type: acute cystitis Hematuria presence: with hematuria Qualified Code(s): N30.01 - Acute cystitis with hematuria Discharge Date/Time: 05/24/19 17:25 Instructions: DI for Urinary Tract Infection (UTI) Activity Restrictions/Additional Instructions: The laboratory studies look good. Your urinalysis is positive for infection, for which you have been started on antibiotics. Please get plenty of fluids to drink. Prescriptions: New ciprofloxacin HCl [Cipro] 500 mg tablet 500 mg PO BID Qty: 14 RF: 0 No Action melatonin 10 mg capsule 10 mg PO BEDTIME PRN (Reason: sleep) Qty: 90 RF: 1 trospium 20 mg tablet 20 mg PO BID Qty: 180 RF: 3 carbidopa-levodopa 50-200 mg tablet extended release 1 tab PO BEDTIME RF: 0 sennosides [senna] 8.6 mg tablet 17.2 mg PO QPM RF: 0 carbidopa-levodopa 25-100 mg tablet 2 tab PO QID RF: 0 Biotene Dry Mouth Oral Rinse Mouthwash 15 ml MM BID-QID PRN (Reason: dry mouth) Qty: 1000 RF: 3 fluoxetine 20 mg capsule 60 mg PO DAILY RF: 0 rivastigmine tartrate 6 mg capsule 6 mg PO BID RF: 0 Referrals: Olimpia Wilson ARNP [Primary Care Provider] -
[2019-05-24] MEDS: SODIUM CHLORIDE 0.9% 1,000 ML 1000 ML IV (14:16)
[2019-05-24 14:30] VITALS: BP 154/80; PULSE 71; RESP 17; O2SAT 97
[2019-05-24 15:08] LABS: RBC Urine None Seen (0-5/HPF)
--- NOTE | 2019-05-24 15:08 | PC.NURSE ---
Patient with worsening dementia. States has had several recent UTI's.
[2019-05-24 15:10] LABS: Appearance Urine UA CLOUDY; Bilirubin Urine UA NEGATIVE (NEGATIVE); Color Urine UA YELLOW; Glucose Urine UA NEGATIVE (Negative); Ketones Urine UA NEGATIVE (NEGATIVE); Leukocyte Esterase Urine UA 3+ (NEGATIVE); Nitrite Urine UA POSITIVE (Negative); Occult Blood Urine UA 2+ (Negative); Protein Urine UA TRACE (Negative); Urobilinogen Urine UA 0.2 E.U./dL (0.2)
[2019-05-24 15:18] LABS: Bacteria Urine Many (>30); Culture Indicated Urine Specimen Cultured; Squamous Epithelial Cell Urine 0-1 /HPF (0-5/HPF); WBC Urine >100/HPF (0-5/HPF)
[2019-05-24 15:30] VITALS: BP 154/93; PULSE 80; RESP 17; O2SAT 99
[2019-05-24 16:30] VITALS: BP 168/92; PULSE 79; RESP 17; O2SAT 98
[2019-05-24] MEDS: CIPROFLOXACIN 500 MG TABLET PO (16:37)
--- NOTE | 2019-05-24 16:57 | PC.NURSE ---
Patient's depends changed and placed in pants. Sitting in wheelchair in hallway awaiting prescription which is being walked down from pharmacy. I called daughter and she is coming to take patient home to caregiver in 10 minutes.
== END 2019-05-24 17:25 | disposition home or self-care (01) ==
PROVIDERS: Emergency Provider Emergency Medicine; PCP Nurse Practitioner
DX: N30.01 Acute cystitis with hematuria (principal); R41.0 Disorientation, unspecified
CPT/HCPCS: 36415; 80053; 81001; 85025; 87086; 87186; 96360; 96361; 99284

== ENCOUNTER 2019-06-05 12:45 | Emergency (ER) | payer MEDICARE, SELFPAY ==
[2019-04-10 15:21] VITALS: BMI 26.2
[2019-06-05 12:47] VITALS: BP 158/97; PULSE 99; RESP 14; TEMP 36.6; O2SAT 96; BMI 27.3
[2019-06-05 12:53] VITALS: BP 158/97; PULSE 99; RESP 14; TEMP 36.6; O2SAT 96
--- NOTE | 2019-06-05 14:19 | DI.RAD.S_ITS ---
PROCEDURE: XR HIP W PEL IF DONE RT 2V INDICATIONS: fall, R hip pain TECHNIQUE: 2 views of the hip were acquired. COMPARISON: [facility], CR, XR PELVIS 1-2V, 02/21/2019, 10:03. FINDINGS: Bones: The surgical changes are present related to lateral hip arthroplasties. The metallic prosthetic components are appropriately seated without periprosthetic fracture involving the right hip. Otherwise, the imaged osseous structures of the pelvis are grossly unremarkable. Soft tissues: No suspicious soft tissue calcifications or masses. IMPRESSION: Status post right hip arthroplasty without periprosthetic fracture or dislocation. Dictated by: Mitch Nuñez M.D. on 06/05/2019 at 13:45 Approved by: Mitch Nuñez M.D. on 06/05/2019 at 13:46
--- NOTE | 2019-06-05 14:22 | ED_ITS ---
HPI - Fall General Chief Complaint: Fall Stated Complaint: GLF Time Seen by Provider: 06/05/19 12:49 Source: patient and EMS Mode of arrival: EMS Limitations: other (Dementia) History of Present Illness HPI Narrative: Patient is brought to the emergency department by EMS for chief complaint of right hip pain after falling out of bed. Patient reports rolling out of bed sometime this morning or last night, though she really cannot tell when. The patient states that she has some pain over her right hip, but that the bruising there is old. She states that she was not hurt in any other way. She denies hitting her head or losing consciousness. No pain in her abdomen or spine. No chest pain or shortness of breath. EMS has recently reported that the patient has called them repeatedly for reports of things such as people breaking into her house, has been on fire, or falling and having blood spurting from a various body parts, only to find out when they arrive that the patient is sitting calmly in her chair and then it reported things are actually happening. The patient has a full-time nighttime caregiver, as well as daytime caregivers, and EMS as previously reported that the house is tidy and clean. The family is currently working on getting the patient in to an assisted living facility in [place], and the patient is scheduled to go there on the of this month. Related Data Home Medications Medication Instructions Recorded Confirmed carbidopa ER 50 mg-levodopa 200 mg 1 tab PO BEDTIME tab 06/26/18 05/24/19 tablet,extended release rivastigmine tartrate 6 mg PO BID 09/18/18 05/24/19 sennosides 8.6 mg tablet 17.2 mg PO QPM 11/05/18 05/24/19 carbidopa 25 mg-levodopa 100 mg 2 tab PO QID tab 03/07/19 05/24/19 tablet fluoxetine 60 mg PO DAILY 05/24/19 05/24/19 Previous Rx's Medication Instructions Recorded melatonin 10 mg capsule 10 mg PO BEDTIME PRN #90 cap 10/21/18 saliva substitute combo no.9 15 ml MM BID-QID PRN #1000 ml 04/06/19 trospium 20 mg tablet 20 mg PO BID #180 tab 05/02/19 ciprofloxacin HCl [Cipro] 500 mg PO BID #14 tab 05/24/19 Allergies Allergy/AdvReac Type Severity Reaction Status Date / Time Sulfa (Sulfonamide Allergy Severe HIVES Verified 06/05/19 13:07 Antibiotics) [SULFA (SULFONAMIDE ANTIBIOTICS)] vancomycin [VANCOMYCIN] Allergy Severe RASH AND Verified 06/05/19 13:07 BLISTERS codeine [CODEINE] Allergy Mild HEADACHE,VOMITING,MOOD Verified 06/05/19 13:07 CHANGES hydrocodone [HYDROCODONE] Allergy Mild NAUSEA,ITCHING,MOOD Verified 06/05/19 13:07 CHANGES Review of Systems Constitutional Constitutional: Denies chills, Denies fatigue, Denies fever(s), Denies frequent falls, Denies lethargy and Denies weakness Eyes Eyes: Denies change in vision, Denies eye discharge, Denies irritation and Denies loss of vision ENT Ears, Nose, Mouth, and Throat: Denies change in voice, Denies dizziness, Denies neck pain, Denies sore throat and Denies throat swelling Cardiovascular Cardiovascular: Denies chest pain, Denies irregular heart rhythm, Denies lightheadedness, Denies palpitations, Denies dyspnea, Denies dyspnea on exertion and Denies orthopnea Respiratory Respiratory: Denies cough, Denies dyspnea, Denies dyspnea on exertion and Denies wheezing Gastrointestinal Gastrointestinal: Denies abdominal pain, Denies change in bowel habits, Denies diarrhea, Denies nausea and Denies vomiting Genitourinary Genitourinary: Denies hematuria, Denies flank pain, Denies urinary incontinence and Denies urinary urgency Musculoskeletal Musculoskeletal: Denies back pain, Denies muscle weakness, Denies neck pain, Denies numbness and Denies tingling Comments: Right hip pain Integumentary/Breasts Skin/Breast: Denies pruritus, Denies erythema, Denies rash and Denies wounds Neurologic Neurologic: Denies behavioral changes, Denies confusion, Denies dizziness, Denies frequent falls, Denies loss of vision, Denies numbness, Denies tingling and Denies weakness Psychiatric Psychiatric: Denies anxiety, Denies behavioral changes, Denies confusion, Denies depression, Denies homicidal ideation and Denies suicidal ideation Endocrine Endocrine: Denies fatigue, Denies flushing and Denies palpitations Hematologic/Lymphatic Hematologic/Lymphatic: Denies easy bruising Allergic/Immunologic Allergic/Immunologic: Denies urticaria, Denies throat swelling and Denies wheezing Patient History Medical History Abnormal Pap smear of cervix (Resolved) Allergies (Chronic) Arthritis (Chronic) Benign essential tremor (Chronic) Chicken pox (Resolved) Dementia with Parkinsonism (Acute) Dry mouth (Acute) Fall from ground level (Resolved 04/2014) Fibroids (Inactive) Foot pain (Chronic) Hallucinations, unspecified (Acute) Headache (Chronic) Hearing loss (Chronic) Heavy menstrual period (Inactive) Hemopneumothorax (Resolved 04/2014) Hypertension (Chronic) Lumbar spinal stenosis (Chronic) Measles (Resolved) Menopause (Resolved ~1983) Migraines (Chronic) Mumps (Resolved) Parkinson's disease (Chronic) Peripheral neuropathy (Chronic) Respiratory failure (Resolved 04/2014) Rib fractures (Resolved 04/2014) Seizures (Chronic ~1960) Shoulder pain (Chronic) Urinary incontinence (Chronic) Vision disorder (Chronic) Surgical History Anesthesia (Resolved) History of bladder surgery (Resolved) History of hip replacement (Resolved 2000) History of left cataract surgery (Resolved 12/11/15) History of oophorectomy (Resolved) History of oral surgery (Resolved) History of right cataract surgery (Resolved 12/25/15) History of tonsillectomy (Resolved) History of tracheostomy (Resolved 04/2014) Status post appendectomy (Resolved) Status post cholecystectomy (Resolved 2000) Status post hysterectomy (Resolved 1967) Status post laminectomy (Resolved 2010) Family History Mother Breast cancer, female Colorectal cancer Cancer Hypertension Stroke Father Esophageal cancer Alcoholism Parkinson disease Stroke Social History household members: caregiver and none Smoking Status: Former smoker alcohol intake: current substance use type: does not use Smoking Status: Former smoker alcohol intake frequency: holidays/special occasions only Substance Use Type: does not use Exam Initial Vital Signs Initial Vital Signs: Vital Signs Temperature 97.8 F 06/05/19 12:47 Pulse Rate 99 H 06/05/19 12:47 Respiratory Rate 14 06/05/19 12:47 Blood Pressure 158/97 H 06/05/19 12:47 Pulse Oximetry 96 06/05/19 12:47 Const General: cooperative and well developed Nutritional Appearance: well nourished [facility] Head: normocephalic and atraumatic Ears: external ears normal Nose: external nose normal and No nasal discharge Face and sinus: face symmetric and No dry mucous membranes Mouth: oral mucosae normal and moist mucous membranes Teeth and gingiva: dentition normal Eyes General: appearance normal, both eyes and all related structures Eyelids: eyelids normal Conjunctivae: conjunctivae normal Sclera: sclerae normal Pupils: PERRL EOM: EOM intact bilaterally Neck Neck: normal visual inspection, trachea midline, No lymphadenopathy, No midline deformity and No JVD Lymphatic: No lymphedema Chest Chest: normal inspection of the chest Resp Effort & Inspection: normal respiratory effort, able to speak in complete sentences, no respiratory distress and no use of accessory muscles Auscultation: clear to auscultation bilaterally, no rales, no rhonchi and no wheezes Cardio Rate: regular rate Rhythm: regular rhythm Heart Sounds: no click, no gallops, no murmurs and no rubs Pulses: normal peripheral pulses GI Inspection: non-distended Palpation: soft, no hepatosplenomegaly, No guarding, No pulsatile mass and No tender Back/Spine/Pelvis Back: No CVA tenderness Cervical Spine: cervical ROM normal and No pain with cervical ROM Thoracic/Lumbar Spine: thoracic and lumbar spine normal to inspection Skin General: no rashes or lesions noted, No jaundice and No petechiae Neuro General: alert, awake and no focal motor deficits Cranial Nerves: CN's II-XI intact bilaterally Speech: speech normal Motor: muscle tone normal throughout Sensory Exam: no sensory deficits noted Extrem General: no clubbing, cyanosis or edema Other: Patient does not have any shortening or rotation of her right lower extremity. She is able to roll from 1 side to the other without difficulty, and her feet are crossed during the history taking. However, the patient does have some tenderness over the right hip laterally and posteriorly. No palpable deformity at the hip joint itself. No right knee tenderness. Psych Appearance: well kempt Mental Status: mental status grossly normal Attitude: cooperative Thought Content: normal and suicidality Judgment: judgment good Course Course Course Narrative: Patient was worked up with an x-ray of her right hip, which was negative. The patient did not have any complaints otherwise, and was well- appearing. The daughter had reported that the patient is scheduled to go to an assisted living facility in the next few days, and it is already known that she has significant caregiver support at home. As such, I felt she was stable for discharge home. We've discussed home management of symptoms, as well as the usual indications for return with the patient's daughter. Orders Ordered: ED Orders 06/05/19 14:19 XR hip w pel if done RT 2V Stat Vital Signs Vital signs: Vital Signs - 8 hr 06/05/19 12:47 06/05/19 12:53 Temperature 97.8 F 97.8 F Pulse Rate 99 H 99 H Respiratory Rate 14 14 Blood Pressure 158/97 H Blood Pressure [Left Arm] 158/97 H Pulse Oximetry 96 96 MDM - Fall Medical Records Attestation: I reviewed the patient's medical records. Imaging Data Extremity x-ray #1: Radiologist's Impression: PROCEDURE: XR HIP W PEL IF DONE RT 2V INDICATIONS: fall, R hip pain TECHNIQUE: 2 views of the hip were acquired. COMPARISON: [facility], , XR PELVIS 1-2V, 02/21/2019, 10:03. FINDINGS: Bones: The surgical changes are present related to lateral hip arthroplasties. The metallic prosthetic components are appropriately seated without periprosthetic fracture involving the right hip. Otherwise, the imaged osseous structures of the pelvis are grossly unremarkable. Soft tissues: No suspicious soft tissue calcifications or masses. IMPRESSION: Status post right hip arthroplasty without periprosthetic fracture or dislocation. Dictated by: Mitch Nuñez M.D. on 06/05/2019 at 13:45 Approved by: Mitch Nuñez M.D. on 06/05/2019 at 13:46 Discharge Plan Departure Patient Disposition: Home Clinical Impression: Acute hip pain Qualifiers: Laterality: right Qualified Code(s): M25.551 - Pain in right hip Discharge Date/Time: 06/05/19 15:53 Instructions: How to Prevent Falls, DI for Hip Pain Activity Restrictions/Additional Instructions: Your x-ray does not show any broken bones around to your right hip area. Additionally, there is no evidence of any other trauma that is new or concerning its time. Please follow-up with your primary care physician, as needed. Prescriptions: No Action melatonin 10 mg capsule 10 mg PO BEDTIME PRN (Reason: sleep) Qty: 90 RF: 1 trospium 20 mg tablet 20 mg PO BID Qty: 180 RF: 3 carbidopa-levodopa 50-200 mg tablet extended release 1 tab PO BEDTIME RF: 0 sennosides [senna] 8.6 mg tablet 17.2 mg PO QPM RF: 0 carbidopa-levodopa 25-100 mg tablet 2 tab PO QID RF: 0 Biotene Dry Mouth Oral Rinse Mouthwash 15 ml MM BID-QID PRN (Reason: dry mouth) Qty: 1000 RF: 3 fluoxetine 20 mg capsule 60 mg PO DAILY RF: 0 ciprofloxacin HCl [Cipro] 500 mg tablet 500 mg PO BID Qty: 14 RF: 0 rivastigmine tartrate 6 mg capsule 6 mg PO BID RF: 0 Referrals: Olimpia Wilson ARNP [Primary Care Provider] -
== END 2019-06-05 15:53 | disposition home or self-care (01) ==
PROVIDERS: Emergency Provider Emergency Medicine; PCP Nurse Practitioner
DX: M25.551 Pain in right hip (principal); W06.XXXA Fall from bed, initial encounter
CPT/HCPCS: 73502; 99283